=== PATIENT | female | born 1955 | race Caucasian/White ===

== ENCOUNTER 2020-06-14 21:12 | Emergency (ER) | payer BC, MEDICAID, SELFPAY ==
--- NOTE | ~2020-06-14 | XR_ITS ---
EXAMINATION: XR chest 2V DATE: 06/14/2020 22:30 INDICATION: Sternal chest pain TECHNIQUE: PA and lateral views of the chest are obtained. COMPARISON: None available FINDINGS: The lungs are free of acute opacities. There is no pleural effusion or pneumothorax. The ca rdiomediastinal silhouette is normal. There is mild thoracic spondylosis. Surgical clips in the right upper quadrant are likely from prior cholecystectomy. IMPRESSION: 1. No acute cardiopulmonary abnormality. Reviewed, dictated and finalized at location A.
[2020-06-14 21:19] VITALS: BP 148/77; PULSE 89; RESP 17; TEMP 36.8; O2SAT 96
--- NOTE | 2020-06-14 21:24 | ECG_ITS ---
Measurements Intervals [place] Rate: 84 P: 41 NM: 164 QRS: 20 QRSD: 86 T: 30 QT: 349 QTc: 415 Interpretive Statements SINUS RHYTHM NORMAL ECG Electronically Signed On 06-15-2020 7:24:19 CDT by Gibran Blanco D.O.
[2020-06-14 22:01] LABS: Basophils Absolute Auto 0.1 K/mm3 (0.0-0.1); Basophils Percent Auto 0.5 % (0.2-1.2); Eosinophils Absolute Auto 0.1 K/mm3 (0-0.3); Eosinophils Percent Auto 1.1 % (0-4.4); Hematocrit 38.2 % (37.0-47.0); Hemoglobin 13.4 g/dL (12.0-15.0); Immature Granulocyte Absolute 0.02 K/mm3 (0.00-0.031); Immature Granulocyte Percent A 0.2 % (0-0.5); Lymphocytes Absolute Auto 3.33 K/mm3 (0.9-3.2); Lymphocytes Percent Auto 32.3 % (18.3-44.2); Mean Corpuscular HGB Conc 35.1 g/dl (32-36); Mean Corpuscular Hemoglobin 31.8 pg (26-34); Mean Corpuscular Volume 90.5 fl (80-100); Mean Platelet Volume 9.7 fl (7.4-10.4); Monocytes Absolute Auto 0.7 K/mm3 (0.1-0.6); Monocytes Percent Auto 6.5 % (2.6-8.5); Neutrophils Absolute Auto 6.1 K/mm3 (1.3-6.7); Neutrophils Percent Auto 59.4 % (45.5-73.1); Platelet Count Result 264 k/mm3 (150-375); Red Blood Count 4.22 M/mm3 (4.2-5.4); Red Cell Distribution Width 13.3 % (11.5-14.5); White Blood Count 10.3 K/mm3 (4.5-10.0)
[2020-06-14 22:16] LABS: INR 0.9; Prothrombin Time 12.3 Seconds (11.1-14.7)
[2020-06-14 22:17] LABS: Anion Gap 11 mmol/L (8-16); Blood Urea Nitrogen 10 mg/dL (7-17); Calcium 9.6 mg/dL (8.4-10.2); Carbon Dioxide 25 mmol/L (22-30); Chloride 97 mmol/L (98-107); Estimated Glomerular Filt Rate > 60; Glucose 162 mg/dL (65-105); Partial Thromboplastin Time 30.3 SECONDS (22.3-36.8); Potassium 3.7 mmol/L (3.4-5.0); Sodium 133 mmol/L (137-145)
[2020-06-14 22:26] LABS: Troponin I < 0.012 ng/mL (0.000-0.034)
--- NOTE | 2020-06-15 00:02 | ED.CHESTPAIN ---
HPI - Chest Pain General Chief Complaint: Chest Pain Stated Complaint: Chest pain Time Seen by Provider: 06/14/20 23:57 Source: RN notes reviewed History of Present Illness HPI narrative: Patient presents emergency department from home for midsternal chest pain. Patient states that approximately 5 PM today she began to have some pain in the epigastric region up to the middle of her chest described as burning. States that it felt like heartburn at that time. Patient states she is still having some burning pain. She also notes that at that time she developed mild headache as well as some pain in her neck and flashes of light in her eyes. She states that these episodes of pain in her neck and headache and flashing lights in her eye have been ongoing for the past 1 year and has been evaluated by her PCP and she recently moved to this area month ago and is now looking for a new PCP for evaluation at this time she states all of those symptoms have resolved and the only symptom is the chest pain which is what brought her to the emergency department as this was new. She denies any fevers or chills shortness of breath nausea vomiting diarrhea or any other symptoms Related Data Allergies Allergy/AdvReac Type Severity Reaction Status Date / Time diclofenac [From Voltaren] AdvReac Other Verified 06/15/20 00:15 Review of Systems Review of Systems: Narrative: Gen.: Denies fevers or chills Eyes: Reports brief flashing lights in eyes which is chronic ENT: Denies congestion Respiratory: Denies shortness of breath or cough CV: See HPI GI: Denies abdominal pain nausea, emesis or diarrhea denies burning, urgency, frequency or hematuria Musculoskeletal: Denies back pain or muscle pain Neuro: Denies numbness, tingling, weakness or focal weakness Skin: Denies rash Except as documented, all other systems reviewed and negative PMFSH Past Medical History Medical History (Updated 06/15/20 @ 04:04 by Filipe Smith DO) Patient denies significant medical history Social History Social History (Updated 06/15/20 @ 00:03 by Filipe Smith DO) Smoking status: Never smoker Gender identity (if verbalized by the patient): Female Exam Narrative: Exam Narrative: APPEARANCE: No acute distress, nontoxic, resting in bed HEENT: Normocephalic, atraumatic, OMM RESPIRATORY: No respiratory distress, clear to auscultation bilaterally with no rhonchi wheezing or rales CARDIOVASCULAR: RRR s murmur ABDOMINAL: Soft, nondistended, tender palpation epigastric region, no tenderness in right upper quadrant and left upper quadrant, right lower quadrant left lower quadrant, no rebound or guarding MUSCULOSKELETAl: Moves all extremities. No clubbing, cyanosis or edema. NEURO: Awake and alert. Following commands, speech normal, no focal deficits SKIN:: Warm, dry. Normal Color PSYCHIATRIC: Normal affect/mood Course Course Emergency Course: Patient states chest pain is resolved with GI cocktail Discussed with patient results of workup and diagnosis. Discussed need for follow-up with primary care, proper use of medication, and reasons to return to the emergency department. Patient understands and agrees to current treatment plan She was discharged during downtime sent home with prescription for Protonix Vital Signs Vital signs: Vital Signs Temperature 98.3 F 06/14/20 21:19 Pulse Rate 89 06/14/20 21:19 Respiratory Rate 17 06/14/20 21:19 Blood Pressure 148/77 H 06/14/20 21:19 Pulse Oximetry 96 06/14/20 21:19 Temperature 98.3 F 06/14/20 21:19 Pulse Rate 89 06/14/20 21:19 Respiratory Rate 17 06/14/20 21:19 Blood Pressure 148/77 H 06/14/20 21:19 Pulse Oximetry 96 06/14/20 21:19 MDM - Chest Pain MDM Narrative Medical decision making narrative: Patient's EKGs and labs are without significant high risk changes. Cardiac risk factors reviewed. Patient is felt likely low risk for ACS and reasonable for further risk stratification te
[2020-06-15 00:15] LABS: Alanine Aminotransferase 21 U/L (4-35); Albumin Level 4.1 g/dL (3.5-5.1); Alkaline Phosphatase 91 U/L (38-126); Aspartate Amino Transferase 31 U/L (14-36); Bilirubin,Total 0.5 mg/dL (0.2-1.3); Lipase 48 U/L (23-300)
[2020-06-15 05:16] LABS: Troponin I < 0.012 ng/mL (0.000-0.034)
== END 2020-06-15 02:04 | disposition home or self-care (01) ==
PROVIDERS: Emergency Provider Emergency Medicine
DX: R07.9 Chest pain, unspecified (principal); K21.9 Gastro-esophageal reflux disease without esophagitis
CPT/HCPCS: 36415; 71046; 80048; 80076; 83690; 84484; 85025; 85610; 85730; 93005; 99284; A9270

== ENCOUNTER 2021-03-20 14:37 | Emergency (ER) | payer BC, MEDICAID, SELFPAY ==
[2021-03-20 14:45] VITALS: BP 160/71; PULSE 102; RESP 18; TEMP 37.2; O2SAT 97
--- NOTE | 2021-03-20 14:50 | ECG_ITS ---
Measurements Intervals [place] Rate: 94 P: 37 NM: 163 QRS: 36 QRSD: 86 T: 44 QT: 339 QTc: 425 Interpretive Statements SINUS RHYTHM DELAYED PRECORDIAL R/S TRANSITION MINIMAL Q WAVES- INFERIOR LEADS BORDERLINE ECG Electronically Signed On 03-20-2021 16:29:24 CDT by Gibran Blanco D.O.
[2021-03-20 15:09] LABS: Basophils Absolute Auto 0.1 K/mm3 (0.0-0.1); Basophils Percent Auto 0.7 % (0.2-1.2); Eosinophils Absolute Auto 0.1 K/mm3 (0-0.3); Eosinophils Percent Auto 1.6 % (0-4.4); Hematocrit 42.3 % (37.0-47.0); Hemoglobin 14.3 g/dL (12.0-15.0); Immature Granulocyte Absolute 0.02 K/mm3 (0.00-0.031); Immature Granulocyte Percent A 0.3 % (0-0.5); Lymphocytes Absolute Auto 2.58 K/mm3 (0.9-3.2); Lymphocytes Percent Auto 33.8 % (18.3-44.2); Mean Corpuscular HGB Conc 33.8 g/dl (32-36); Mean Corpuscular Hemoglobin 31.4 pg (26-34); Mean Platelet Volume 9.6 fl (7.4-10.4); Monocytes Absolute Auto 0.5 K/mm3 (0.1-0.6); Monocytes Percent Auto 6.3 % (2.6-8.5); Neutrophils Absolute Auto 4.4 K/mm3 (1.3-6.7); Neutrophils Percent Auto 57.3 % (45.5-73.1); Platelet Count Result 295 k/mm3 (150-375); Red Blood Count 4.55 M/mm3 (4.2-5.4); Red Cell Distribution Width 13.5 % (11.5-14.5); White Blood Count 7.6 K/mm3 (4.5-10.0)
[2021-03-20 15:17] LABS: Anion Gap 9 mmol/L (8-16); Blood Urea Nitrogen 15 mg/dL (7-17); Calcium 9.9 mg/dL (8.4-10.2); Carbon Dioxide 24 mmol/L (22-30); Chloride 105 mmol/L (98-107); Estimated CRCL calculation 49 ml/min; Estimated Glomerular Filt Rate 56; Glucose 142 mg/dL (65-105); Sodium 138 mmol/L (137-145)
[2021-03-20 17:14] VITALS: BP 155/86; PULSE 87; RESP 16; O2SAT 97
[2021-03-20] MEDS: SODIUM CHLORIDE 0.9% IV 1,000 ML 999 ML IV CONT (17:37)
--- NOTE | 2021-03-20 18:07 | ED.GENADULT ---
HPI - General Adult General Chief complaint: Weakness Stated complaint: headache/weakness Time Seen by Provider: 03/20/21 17:21 Source: patient and EMS Mode of arrival: EMS Limitations: no limitations History of Present Illness HPI narrative: Patient is a 65-year-old female who presents to emergency department for evaluation of headache earlier today for which she took Imitrex after which she felt weak and shaky and nauseous patient notes history of chronic migraines with frequent headaches and that this is consistent with her chronic headaches she has also been taking Zofran for nausea denies emesis patient on arrival is in no distress and notes that after taking her Imitrex she is now beginning to feel better Related Data Allergies Allergy/AdvReac Type Severity Reaction Status Date / Time diclofenac [From Voltaren] AdvReac Other Verified 06/15/20 00:15 Review of Systems Review of Systems: All systems reviewed & are unremarkable except as noted in HPI and below PMFSH Past Medical History Medical History Migraine headache Patient denies significant medical history Surgical History Surgical History Hx of cholecystectomy Social History Social History Smoking status: Never smoker Gender identity (if verbalized by the patient): Female Exam Narrative: Exam Narrative: GENERAL: Well-appearing, well-nourished, and in no acute distress. HEAD: Normocephalic, atraumatic. EYES: PERRLA and EOMI. ENT: Nares clear, no rhinorrhea or epistaxis. Mucous membranes moist. CHEST: Clear to auscultation. No respiratory distress. No wheezes rales or rhonchi HEART: Regular rate and rhythm. No murmur heard. EXTREMITIES: Normal range of motion. No edema. SKIN: Warm, dry, no rash. NEURO: No focal deficits. Alert and oriented x3. Cranial nerves II through XII grossly intact PSYCH: Normal mood and affect. Course Course Emergency Course: Patient is a 65-year-old that presented with migraine-like symptoms and weakness was evaluated no concerning findings in the evaluation will be discharged home with outpatient follow-up felt appropriate afebrile nontoxic-appearing no distress was hydrated in the emergency department Vital Signs Vital signs: Vital Signs Temperature 99 F 03/20/21 14:45 Pulse Rate 102 H 03/20/21 14:45 Respiratory Rate 18 03/20/21 14:45 Blood Pressure 160/71 H 03/20/21 14:45 Pulse Oximetry 97 03/20/21 14:45 Temperature 99 F 03/20/21 14:45 Pulse Rate 87 03/20/21 17:14 Respiratory Rate 16 03/20/21 17:14 Blood Pressure 155/86 H 03/20/21 17:14 Pulse Oximetry 97 03/20/21 17:14 Medical Decision Making MDM Narrative Medical decision making narrative: Patients headache was not sudden or maximal in onset. There are o focal neurological deficits on exam. Subarachnoid hemorrhage is felt to be unlikey at this time. There is no history of fever, and neck is supple without meningismus, making meningitis unlikely. No traumatic history or signs of trauma on exam. No risk factors for CVA, risk factors reviewed. NO ocular signs on exam and in history to suggest acute glaucoma. Patients headache is felt to be a reasonable candidate for outpatient evaluation Vital Signs Vital Signs: Vital Signs Temperature 99 F 03/20/21 14:45 Pulse Rate 102 H 03/20/21 14:45 Respiratory Rate 18 03/20/21 14:45 Blood Pressure 160/71 H 03/20/21 14:45 Pulse Oximetry 97 03/20/21 14:45 Temperature 99 F 03/20/21 14:45 Pulse Rate 87 03/20/21 17:14 Respiratory Rate 16 03/20/21 17:14 Blood Pressure 155/86 H 03/20/21 17:14 Pulse Oximetry 97 03/20/21 17:14 Lab Data Result diagrams: 03/20/21 15:02 03/20/21 15:02 Labs: Lab Results 03/20/21 03/20/21 03/20/21 Range/Units 15:02 15:02 18:06 WB
[2021-03-20 18:22] LABS: Add Urine Microscopic? YES; Appearance Urine Clear (Clear); Bilirubin Urine Negative (Negative); Blood Urine Negative (Negative); Color Urine Straw (Yellow); Glucose Urine UA Negative (Negative); Ketones Urine Negative (Negative); Leukocyte Esterase Ur 1+ LEU/UL (Negative); Mucus Urine Rare /lpf; Nitrate Urine Negative (Negative); Protein Urine Negative (Negative); RBC Urine 0-2 /hpf (0-2); Squamous Epithelial Cell Urine Rare /hpf (Few); Urobilinogen Urine Negative mg/dL (<2.0)
[2021-03-20 18:44] VITALS: BP 119/74; PULSE 72; RESP 16; O2SAT 100
== END 2021-03-20 18:46 | disposition home or self-care (01) ==
PROVIDERS: Emergency Medicine Emergency Medical Services; Emergency Provider Emergency Medicine; PCP Hospitalist
DX: R51.9 Headache, unspecified (principal)
CPT/HCPCS: 36415; 80048; 81001; 85025; 93005; 96365; 99284; J0131; J7030

== ENCOUNTER → 2021-03-28 11:10 | Outpatient (CLI) | payer BC, MEDICAID, SELFPAY ==
--- NOTE | ~2021-03-28 | XR_ITS ---
XR cervical spine 4-5V DATE: 03/28/2021 11:39 INDICATION: Neck pain TECHNIQUE: AP, lateral, open-mouth, odontoid views COMPARISON: None FINDINGS: C1 and C2 are normally aligned and the odontoid process is intact. No fracture or dislocati on or locked facet or prevertebral soft tissue swelling. There is minimal anterolisthesis at C4-5. There is moderate loss of interspace height at C5-6 and moderately severe loss of interspace height a t C6-7, with mild anterior spurring at the latter 2 interspaces. Uncovertebral joint spurring is noted at C5-6 and C6-7. Degenerative changes of the apophyseal joints . Diffuse osteopenia. IMPRESSION: Cervical spondylosis Reviewed, dictated and finalized at location A. IMPRESSION: Cervical spondylosis
== END ==
DX: M47.892 Other spondylosis, cervical region (principal)
CPT/HCPCS: 72050

== ENCOUNTER 2021-04-05 11:27 | Emergency (ER) | payer BC, MEDICAID, SELFPAY ==
--- NOTE | 2021-04-05 11:41 | PC.NURSE ---
Pt was looking for a COVID testing site, did not want to be evaluated by provider. Pt informed that we are capable of doing COVID testing but we are note a testing site. Pt expressed thanks for the information and requested to leave without being seen by the provided and to go to a testing site.
== END 2021-04-05 11:41 | disposition left against medical advice (07) ==
PROVIDERS: Emergency Provider Nurse Practitioner
DX: Z53.21 Procedure and treatment not carried out due to patient leaving prior to being seen by health care provider (principal)
CPT/HCPCS: 99199

== ENCOUNTER → 2021-04-06 09:27 | Outpatient (CLI) | payer BC, MEDICAID, SELFPAY ==
[2021-04-06 18:53] LABS: SARS-CoV-2 RNA PCR Negative
== END ==
DX: R68.89 Other general symptoms and signs (principal); Z20.822 Contact with and (suspected) exposure to COVID-19
CPT/HCPCS: C9803; U0003; U0005

== ENCOUNTER → 2021-08-16 08:34 | Outpatient (CLI) | payer MEDICARE, BC, SELFPAY ==
[2021-08-16 19:33] LABS: SARS-CoV-2 RNA PCR Positive
== END ==
DX: U07.1 COVID-19 (principal)
CPT/HCPCS: C9803; U0003; U0005

== ENCOUNTER 2021-08-20 05:09 | Emergency (ER) | payer BC, MEDICARE, SELFPAY ==
[2021-08-20] VITALS (21 sets, daily range): BP systolic 103–144; BP diastolic 55–79; PULSE 85–117; RESP 11–31; TEMP 37.7; O2SAT 93–97
--- NOTE | ~2021-08-20 | XR_ITS ---
EXAMINATION: XR chest 1V portable DATE: 08/20/2021 06:54 INDICATION: COVID positive presenting with 4-5 days of cough, fever and dizziness TECHNIQUE: frontal view of the chest was obtained. COMPARISON: Chest radiograph dated 06/14/2020 FINDINGS: Lung remain clear with no focal airspace opacities, pulmonary edema, pleural effusion or pneumothorax . The cardiomediastinal silhouette is normal. IMPRESSION: 1. No acute cardiopulmonary disease. Reviewed, dictated and finalized at location A. RACTOR
[2021-08-20] MEDS: SODIUM CHLORIDE 0.9% IV 1,000 ML 999 ML IV CONT ×2 (05:54→06:44)
[2021-08-20] MEDS: ONDANSETRON INJ 4 MG/2 ML VIAL IV PUSH (05:54)
[2021-08-20] MEDS: BENZONATATE 100 MG CAPSULE 200 MG PO (05:56)
[2021-08-20 06:11] LABS: Basophils Percent Auto 0.2 % (0.2-1.2); Hematocrit 37.4 % (37.0-47.0); Immature Granulocyte Absolute 0.01 K/mm3 (0.00-0.031); Immature Granulocyte Percent A 0.2 % (0-0.5); Lymphocytes Percent Auto 22.5 % (18.3-44.2); Mean Corpuscular HGB Conc 34.8 g/dl (32-36); Mean Corpuscular Hemoglobin 31.6 pg (26-34); Mean Platelet Volume 9.6 fl (7.4-10.4); Monocytes Absolute Auto 0.5 K/mm3 (0.1-0.6); Monocytes Percent Auto 8.8 % (2.6-8.5); Neutrophils Absolute Auto 3.9 K/mm3 (1.3-6.7); Neutrophils Percent Auto 68.3 % (45.5-73.1); Platelet Count Result 220 k/mm3 (150-375); Red Blood Count 4.11 M/mm3 (4.2-5.4); Red Cell Distribution Width 13.6 % (11.5-14.5); White Blood Count 5.8 K/mm3 (4.5-10.0)
[2021-08-20 06:23] LABS: Alanine Aminotransferase 25 U/L (4-35); Albumin Level 4.3 g/dL (3.5-5.1); Alkaline Phosphatase 103 U/L (38-126); Anion Gap 12 mmol/L (8-16); Aspartate Amino Transferase 36 U/L (14-36); Bilirubin,Total 0.5 mg/dL (0.2-1.3); Blood Urea Nitrogen 15 mg/dL (7-17); Calcium 8.8 mg/dL (8.4-10.2); Carbon Dioxide 23 mmol/L (22-30); Chloride 94 mmol/L (98-107); Estimated CRCL calculation 43 ml/min; Estimated Glomerular Filt Rate 56; Glucose 118 mg/dL (65-110); Sodium 129 mmol/L (137-145)
--- NOTE | 2021-08-20 06:26 | ED.GENADULT ---
HPI - General Adult General Chief complaint: Dizziness Stated complaint: Dizziness x1wk, fever, COVID + Time Seen by Provider: 08/20/21 05:35 History of Present Illness HPI narrative: Patient is 65-year-old female that presents the emergency department with chief complaint of dizziness. The patient reports she was diagnosed with COVID-19 and has had symptoms for about a week. The patient reports that she feels lightheaded worse with standing and ambulation and feels as though she is off balance. The patient denies chest pain denies shortness of breath reports she has very mild cough the patient denies vomiting or diarrhea. Related Data Home Medications Medication Instructions Recorded Confirmed albuterol sulfate INHALATION 08/20/21 azithromycin 08/20/21 ezetimibe mg 08/20/21 fenofibrate mg 08/20/21 levothyroxine [Euthyrox] 08/20/21 levothyroxine [Euthyrox] 08/20/21 pantoprazole PO 08/20/21 prednisone 08/20/21 sumatriptan succinate mg PO 08/20/21 Allergies Allergy/AdvReac Type Severity Reaction Status Date / Time diclofenac [From Voltaren] AdvReac Other Verified 08/20/21 05:29 Review of Systems Review of Systems: A 10 system review of systems was completed on the patient and is negative except for what is stated in the HPI. Nursing and ancillary documentation was reviewed. [facility] Past Medical History Medical History Migraine headache Patient denies significant medical history Surgical History Surgical History Hx of cholecystectomy Social History Social History Smoking status: Never smoker Gender identity (if verbalized by the patient): Female Exam Narrative: GENERAL: Well-appearing, well-nourished, and in no acute distress. HEAD: Normocephalic, atraumatic. EYES: PERRLA and EOMI. ENT: Nares clear, no rhinorrhea or epistaxis. Mucous membranes moist. NECK: Supple. CHEST: Clear to auscultation. No respiratory distress. HEART: Regular rate and rhythm. No murmur heard. Normal peripheral pulses. ABDOMEN: Soft, nontender, nondistended, normal active bowel sounds. EXTREMITIES: Normal range of motion. No edema. SKIN: Warm, dry, no rash. NEURO: No focal deficits. Alert and oriented x3. PSYCH: Normal mood and affect. Course Vital Signs Vital signs: Vital Signs Pulse Rate 110 H 08/20/21 05:16 Respiratory Rate 18 08/20/21 05:16 Blood Pressure 144/79 H 08/20/21 05:16 Pulse Oximetry 93 08/20/21 05:16 Temperature 37.7 C H 08/20/21 05:27 Pulse Rate 90 08/20/21 06:31 Respiratory Rate 22 H 08/20/21 06:31 Blood Pressure 115/66 08/20/21 06:30 Pulse Oximetry 97 08/20/21 05:27 Medical Decision Making Vital Signs Vital Signs: Vital Signs Pulse Rate 110 H 08/20/21 05:16 Respiratory Rate 18 08/20/21 05:16 Blood Pressure 144/79 H 08/20/21 05:16 Pulse Oximetry 93 08/20/21 05:16 Temperature 37.7 C H 08/20/21 05:27 Pulse Rate 90 08/20/21 06:31 Respiratory Rate 22 H 08/20/21 06:31 Blood Pressure 115/66 08/20/21 06:30 Pulse Oximetry 97 08/20/21 05:27 Lab Data Result diagrams: 08/20/21 05:57 08/20/21 05:57 Labs: Lab Results 08/20/21 08/20/21 Range/Units 05:57 05:57 WBC 5.8 (4.5-10.0) K/mm3 RBC 4.11 L (4.2-5.4) M/mm3 Hgb 13.0 (12.0-15.0) g/dL Hct 37.4 (37.0-47.0) % MCV 91.0 (80-100) fl MCH 31.6 (26-34) pg MCHC 34.8 (32-36) g/dl RDW 13.6 (11.5-14.5) % Plt Count 220 (150-375) k/mm3 MPV 9.6 (7.4-10.4) fl Immature Gran % (Auto) 0.2 (0-0.5) % Neut % (Auto) 68.3 (45.5-73.1) % Lymph % (Auto) 22.5 (18.3-44.2) % Richardson % (Auto) 8.8 H (2.6-8.5) % Eos % (Auto) 0.0 (0-4.4) % Baso % (Auto) 0.2 (0.2-1.2) % Lymph # (Auto) 1.30 (0.9-3.2) K/mm3 Richardson # (Auto)
== END 2021-08-20 08:47 | disposition home or self-care (01) ==
PROVIDERS: Emergency Provider Emergency Medicine; PCP Hospitalist
DX: U07.1 COVID-19 (principal); E86.0 Dehydration
CPT/HCPCS: 36415; 71045; 80053; 85025; 96361; 96365; 96375; 99284; A9270; J0131; J2405; J7030

== ENCOUNTER 2021-08-23 07:38 | Outpatient (RCR) | payer BC, MEDICARE, SELFPAY ==
[2021-08-23 11:18] VITALS: BP 119/66; PULSE 94; RESP 20; TEMP 36.1; O2SAT 91
[2021-08-23] MEDS: diphenhydrAMINE HCl CAP 25 MG CAPSULE PO (11:23)
[2021-08-23] MEDS: FAMOTIDINE 20 MG TABLET PO (11:23)
[2021-08-23] MEDS: ACETAMINOPHEN 325 MG TABLET 650 MG PO (11:23)
--- NOTE | 2021-08-23 11:46 | PC.NURSE ---
Patient unclear on doses of home meds, so home meds not updated.
[2021-08-23 12:50] VITALS: BP 112/66
--- NOTE | 2021-08-24 09:04 | PC.NURSE ---
Called Ms Mcintosh and she stated once she was home and after napping, she woke up dizzy and called EMS, and she is admitted to the hospital at this time.
== END 2021-08-23 17:00 ==
LOC: AMCINF 07:38
PROVIDERS: PCP Hospitalist; Visit Provider Internal Medicine Hematology & Oncology
DX: U07.1 COVID-19 (principal)
CPT/HCPCS: A9270; M0243; Q0244

== ENCOUNTER 2021-08-23 15:28 | Inpatient (IN) | payer BC, MEDICARE, SELFPAY ==
[2021-08-23] VITALS (8 sets, daily range): BP systolic 115–147; BP diastolic 60–89; PULSE 86–111; RESP 16–18; TEMP 38–39.4; O2SAT 89–100; BMI 28.5; BMI 28.3
--- NOTE | ~2021-08-23 | XR_ITS ---
EXAMINATION: XR chest 1V portable EXAM DATE: 08/23/2021 16:21 INDICATION: hypoxia COVID +08/18, dizziness, back pain. TECHNIQUE: Portable AP frontal chest x-ray was obtained. Comparison is made to prior examination from 08/20/2021. FINDINGS: Suspect development of bilateral ill-defined acute airspace disease, mild COVID pneumonia. No pneumothorax or pleural effusion. Cardiomediastinal silhouette is normal. 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 IMPRESSION: Suspect development of mild bilateral COVID pneumonia. Reviewed, dictated and finalized at location B. E PLANER OPERATOR
--- NOTE | ~2021-08-23 | XR_ITS ---
EXAMINATION: XR chest 1V portable DATE: 08/27/2021 06:06 INDICATION: COVID-19 pneumonia. TECHNIQUE: A single frontal view of the chest was obtained. COMPARISON: Chest single view 08/23/2021, chest CT 08/23/2021 FINDINGS: There are patchy airspace opacities in all lung zones bilaterally with relative sparing of left upper lung zone. No pleural effusion or pneumothorax. The heart size is normal. IMPRESSION: 1. Worsened diffuse lung disease, consistent with COVID-19 pneumonia. Reviewed, dictated and finalized at location A. SE RENDERER
--- NOTE | ~2021-08-23 | CT_ITS ---
EXAMINATION: CTA chest PE protocol DATE: 09/03/2021 15:42 INDICATION: Chest pain TECHNIQUE: Computed tomography angiography (CTA) of the chest was performed with 100 mL Omnipaque-350 intravenous contrast timed to evaluate the pulmonary arteries. Coronal maximum intensity projection 3D-reconstructions were created by the technologist. The dose-length product (DLP) was 471.74 mGy-cm. Automated exposure control and iterative reconstruction technique were employed. COMPARISON: 08/23/2021 FINDINGS: The pulmonary arteries are well-opacified. No pulmonary embolism is identified. There are w idespread opacities throughout all lung zones with slight worsening since the comparison examination. There is no pleural effusion or pneumothorax. There is mild bilateral hilar lymphadenopathy. The hea rt size is normal. The gallbladder is surgically absent. IMPRESSION: 1. No pulmonary embolus. 2. Diffuse lung disease with slight interval worsening, consistent with pneumonia. Reviewed, dictated and finalized at location F. GED SERVICES CONSULTANT IMPRESSION: 1. No pulmonary embolus. 2. Diffuse lung disease with slight interval worsening, consistent with pneumon ia.
--- NOTE | ~2021-08-23 | CT_ITS ---
EXAMINATION: CTA chest PE protocol DATE: 08/23/2021 18:45 FIELD SUPPORT SPECIALIST INDICATION: Shortness of breath and dizziness. Elevated d-dimer. TECHNIQUE: Computed tomographic angiography (CTA) of the chest was performed with 100 mL Omnipaque-35 0 intravenous contrast. The dose-length product was 391.24 mGy-cm. Maximum intensity projection 3D-re constructions of the aorta and other arteries were constructed by the technologist on a separate work station. COMPARISON: None. FINDINGS: Study is technically adequate without evidence for pulmonary embolism. Evaluation of subseg mental pulmonary arteries limited by motion. Cardiomegaly. No significant pleural or pericardial effu sulma. Extensive patchy groundglass opacities throughout both lungs, consistent with pneumonia. No end obronchial lesions. No pneumothorax. No evidence for aortic aneurysm or dissection. Small hiatal verónica ia. No thoracic lymphadenopathy. Status post cholecystectomy. Otherwise, the upper abdomen is unremar kable. No acute osseous abnormality. IMPRESSION: 1. Patchy bilateral airspace disease, consistent with pneumonia. Reviewed, dictated and finalized at location A. D SUPPORT SPECIALIST
--- NOTE | ~2021-08-23 | XR_ITS ---
EXAMINATION: XR chest 1V portable DATE: 09/03/2021 13:52 INDICATION: Chest pain. TECHNIQUE: A single frontal view of the chest was obtained. COMPARISON: Chest single view 08/30/2021, chest CT 08/23/2021 FINDINGS: There are patchy airspace opacities and interstitial opacities in all right lung zones and in left mid and lower lung zones. No pleural effusion or pneumothorax. The heart size is normal. Surg ical clips in the right upper quadrant are likely from cholecystectomy. IMPRESSION: 1. Stable diffuse lung disease, consistent with COVID-19 pneumonia. Reviewed, dictated and finalized at location A. RPERSONAL COMMUNICATIONS PROFESSOR
--- NOTE | ~2021-08-23 | US_ITS ---
EXAMINATION: US arterial duplex LE RT DATE: 09/06/2021 16:27 INDICATION: Arterial bruit at the right groin post recent catheterization TECHNIQUE: Multiple grayscale and Doppler ultrasound images of the right groin were obtained. COMPARISON: None FINDINGS: The right common femoral artery and the superficial femoral artery and profunda femoral artery all ap pear normal with normal triphasic waveforms with brisk systolic upstrokes. The right common femoral a nd superficial femoral veins are patent with normal venous waveforms. No arterialization to suggest A V fistula. No hematoma or pseudoaneurysm identified at the right groin. IMPRESSION: 1. Normal study. No evident hematoma, pseudoaneurysm or AV fistula at the right groin. Reviewed, dictated and finalized at location A. USION OPERATOR
--- NOTE | ~2021-08-23 | XR_ITS ---
EXAMINATION: XR chest 1V portable DATE: 08/30/2021 06:20 INDICATION: COVID-19 pneumonia. TECHNIQUE: A single frontal view of the chest was obtained. COMPARISON: Chest single view 08/27/2021 FINDINGS: There are patchy airspace opacities in all lung zones bilaterally with relative sparing of left upper lung zone. No pleural effusion or pneumothorax. The heart size is normal. IMPRESSION: 1. Stable diffuse lung disease, consistent with COVID-19 pneumonia. Reviewed, dictated and finalized at location A. INSTALLER
--- NOTE | 2021-08-23 16:08 | ECG_ITS ---
RATE 108 TX 147 QRSd 82 QT 305 QTc 410 --[place]-- P 25 QRS 16 T 14 SINUS TACHYCARDIA DELAYED PRECORDIAL R/S TRANSITION ABNORMAL ECG Electronically Signed On 08-24-2021 12:07:50 ASSOCIATE SPA DIRECTOR by Gibran MARTINEZ
--- NOTE | 2021-08-23 16:17 | ED.BACK ---
HPI - Back Pain/Injury General Chief Complaint: Back Pain/Injury Stated Complaint: COVID+ BACK PAIN AFTER INFUSION Time Seen by Provider: 08/23/21 15:54 Source: patient and RN notes reviewed Mode of arrival: EMS Limitations: no limitations History of Present Illness HPI Narrative: This is a 65 year old female who presents for evaluation of back pain and low oxygen saturation. She developed symptoms of COVID on 08/14/21 and she was diagnosed with August 18. She has been having intermittent episodes of shaking and chills since her diagnosis. Today she developed lower back pain and uncontrollable shaking. She was found to have oxygen saturation of 84% by EMS and in ER she has saturation 89%. She denies shortness of breath, chest pain, or chronic lung disease. She has decreased appetite but denies abdominal pain, nausea, vomiting or diarrhea. Related Data Home Medications Medication Instructions Recorded Confirmed albuterol sulfate 90 mcg INHALATION BID PRN 08/20/21 08/23/21 azithromycin 250 mg PO DAILY 08/20/21 08/23/21 ezetimibe 10 mg PO 08/20/21 fenofibrate 160 mg PO 08/20/21 levothyroxine [Euthyrox] 88 mcg PO DAILY 08/20/21 08/23/21 pantoprazole 4 mg PO DAILY 08/20/21 08/23/21 prednisone 50 mg PO DAILY 08/20/21 sumatriptan succinate 100 mg PO 08/20/21 Allergies Allergy/AdvReac Type Severity Reaction Status Date / Time diclofenac [From Voltaren] AdvReac Other Verified 08/23/21 21:20 Review of Systems Review of Systems: All systems reviewed & are unremarkable except as noted in HPI and below Constitutional: Constitutional: Reports chills and Reports fever(s) ENT: Denies sore throat Cardiovascular: Cardiovascular: Denies chest pain and Denies radiating jaw, neck or arm pain Respiratory: Respiratory: Denies cough and Denies dyspnea Gastrointestinal: Gastrointestinal: Denies abdominal pain, Denies diarrhea, Denies nausea and Denies vomiting PMFSH Past Medical History Medical History Hyperlipidemia Migraine headache Surgical History Surgical History Hx of cholecystectomy Social History Social History Smoking status: Never smoker Second hand tobacco smoke exposure: Yes (Father smoked) Alcohol intake: never Substance use: never Gender identity (if verbalized by the patient): Female Spiritual care concerns: Yes Exam Const: General: no acute distress, alert and ill appearing Orientation/consciousness: patient oriented x3 HENMT: Head: normocephalic and atraumatic Ears: TM's normal bilaterally Eyes: EOM: EOMs intact bilaterally Chest: Chest palpation & inspection: normal inspection of the chest Resp: Effort & Inspection: normal respiratory effort and no retractions Auscultation: clear to auscultation bilaterally Cardio: Rate: tachycardic Rhythm: regular rhythm and regular rhythm Heart sounds: no murmurs GI: GI Palp: Yes Soft to palpation, No Tenderness to palpation present (GI) and No Guarding due to palpation present (GI) Auscultation: normal bowel sounds : General: Yes no CVA tenderness Skin: General skin exam: normal color Rashes: no rashes Neuro: General: patient oriented x3, moves all extremities and CN's II-XI intact bilaterally Psych: Mental Status: mental status grossly normal Affect: normal affect Course Reevaluation(s) Reevaluation #1: I Discussed with patient that has been found to be dehydrated and have covid pneumonia. She will requiring admission due to oxygen requirement. Steroids and Remdesivir ordered. Patient denies any questions or concerns. Date: 08/23/21 Time: 19:29 Consultations Consultation #1: I discussed with Brigitte Dougherty who accepts to hospitalist service to medical floor. Date: 08/23/21 Time: 19:30 Vital Signs Vital signs: Vital Signs T
[2021-08-23 16:28] LABS: Alveolar/Arterial O2 Gradient 71.1 mmHg; Base Excess ABG 2.6 mEq/l (+/-2.0); Carboxyhemoglobin 0.3 % THb (0-2.0); Fractional Inspired Oxygen 24 %; HCO3 ABG 24.7 mEq/l (22.0-26.0); Methemoglobin ABG 0.4 %THb (0-1.5); Oxygen Content ABG 17.4 %vol (16.0-22.0); Oxygen Saturation ABG 94.6 % (95.0-100.0); Oxyhemoglobin 92.3 % THb (90.0-100.0); PCO2 ABG 30.7 mmHg (35.0-45.0); PO2 ABG 63.5 mmHg (80.0-100.0); PO2 FiO2 Ratio Arterial Blood 2.65 %; Total Hemoglobin 13.4 g/dL (12.0-18.0)
[2021-08-23 16:30] LABS: Modified Allen's Test Pass; Site Drawn LEFT RADIAL; pH ABG 7.523 (7.350-7.450)
[2021-08-23 16:31] LABS: Device NASAL CANNULA
[2021-08-23 17:01] LABS: Basophils Percent Auto 0.2 % (0.2-1.2); Hematocrit 37.3 % (37.0-47.0); Immature Granulocyte Absolute 0.03 K/mm3 (0.00-0.031); Immature Granulocyte Percent A 0.3 % (0-0.5); Mean Corpuscular HGB Conc 34.9 g/dl (32-36); Mean Corpuscular Hemoglobin 31.8 pg (26-34); Mean Corpuscular Volume 91.2 fl (80-100); Mean Platelet Volume 9.6 fl (7.4-10.4); Monocytes Absolute Auto 0.4 K/mm3 (0.1-0.6); Neutrophils Absolute Auto 8.8 K/mm3 (1.3-6.7); Neutrophils Percent Auto 87.5 % (45.5-73.1); Platelet Count Result 204 k/mm3 (150-375); Red Blood Count 4.09 M/mm3 (4.2-5.4); Red Cell Distribution Width 13.6 % (11.5-14.5)
[2021-08-23 17:05] LABS: Add Urine Microscopic? NO; Appearance Urine Clear (Clear); Bilirubin Urine Negative (Negative); Blood Urine Negative (Negative); Color Urine Straw (Yellow); Glucose Urine UA Negative (Negative); Ketones Urine Negative (Negative); Leukocyte Esterase Ur Negative LEU/UL (Negative); Nitrate Urine Negative (Negative); Protein Urine Negative (Negative); Urobilinogen Urine Negative mg/dL (<2.0)
[2021-08-23 17:10] LABS: Lactic Acid Reflex 1.2 mmol/L (0.7-2.1)
[2021-08-23 17:11] LABS: Prothrombin Time 13.2 Seconds (11.1-14.7)
[2021-08-23 17:12] LABS: Partial Thromboplastin Time 27.7 SECONDS (22.3-36.8)
[2021-08-23 17:14] LABS: Alanine Aminotransferase 29 U/L (4-35); Albumin Level 4.1 g/dL (3.5-5.1); Alkaline Phosphatase 100 U/L (38-126); Anion Gap 6 mmol/L (8-16); Aspartate Amino Transferase 52 U/L (14-36); Bilirubin,Total 0.5 mg/dL (0.2-1.3); Blood Urea Nitrogen 13 mg/dL (7-17); Calcium 9.1 mg/dL (8.4-10.2); Carbon Dioxide 25 mmol/L (22-30); Chloride 96 mmol/L (98-107); Estimated CRCL calculation 48 ml/min; Estimated Glomerular Filt Rate > 60; Glucose 123 mg/dL (65-110); Potassium 3.8 mmol/L (3.4-5.0); Sodium 127 mmol/L (137-145)
[2021-08-23 17:27] LABS: D Dimer 0.96 ug/mL (<0.48)
[2021-08-23 17:40] LABS: Specific Grav Ur 1.003 (1.001-1.035)
[2021-08-23] MEDS: SODIUM CHLORIDE 0.9% IV 1,000 ML 999 ML IV CONT (17:55)
--- NOTE | 2021-08-23 19:17 | PC.NURSE ---
the ekg that is downloaded into this pt's chart is not for this pt despite her name being on ekg. her correct ekg was done at 16:20:34. please refer to paper copy of ekg until incorrect ekg can be removed from pt's chart
[2021-08-23] MEDS: SODIUM CHLORIDE 0.9% IV 1,000 ML 125 ML IV CONT (20:34)
[2021-08-23] MEDS: REMDESIVIR 200 MG/NS 250 ML 200 MG/250 ML BAG 250 MG IVPB (20:35)
--- NOTE | 2021-08-23 21:02 | ADMGEN ---
This patient, Yoko Mcintosh, was admitted to [facility] Surg Room 310-01. Patient/family oriented to hospital policies and general routines including ID bracelet, bed and alarms, visiting hours, pain management, procedures, bathroom and other care routines, personal items, smoking policy, room service/diet, and visiting hours. Information on how to activate the Rapid Response Team has been discussed. Patient/Family are encouraged to report perceived risks to care and to ask questions if they do not understand what they are told or what they should do.
--- NOTE | 2021-08-23 21:16 | ADMGEN ---
This patient, Yoko Mcintosh, was admitted to [facility] Surg Room [id number]. Patient/family oriented to hospital policies and general routines including ID bracelet, bed and alarms, visiting hours, pain management, procedures, bathroom and other care routines, personal items, smoking policy, room service/diet, and visiting hours. Information on how to activate the Rapid Response Team has been discussed. Patient/Family are encouraged to report perceived risks to care and to ask questions if they do not understand what they are told or what they should do.
--- NOTE | 2021-08-23 22:33 | PM.IMHP ---
H&P: HPI History of Present Illness Date/Time: 08/23/21 22:33 Chief Complaint: Hypoxia Narrative: This is a 65 year old female who presents to the ED today with persistent symptoms since diagnosis of COVID-19 on 08/16/2021. She started having symptoms on 08/14/2021. Has been having intermittent fever generalized weakness loss of appetite and body aches. She went for her monoclonal antibody infusion today following which she has not felt well. She developed fever and was extremely weak and hence came to the ED for evaluation. EMS was called and was noted to have oxygen saturation of 84% and has been placed on oxygen supplementation. She denies any shortness of breath or chest pain or any diagnosis of chronic lung disease in the past. She denies any abdominal pain nausea vomiting or diarrhea. With her new hypoxia she is admitted for further evaluation and management Review of Systems Review of Systems: - CONSTITUTIONAL: Denies weight loss, reports fever and chills. - HEENT: Denies changes in vision and hearing - RESPIRATORY: Denies SOB and cough. - CV: Denies palpitations and CP. - GI: Denies abdominal pain, reports nausea, denies vomiting and diarrhea. - : Denies dysuria and urinary frequency. - MSK: Reports myalgia and denies joint pain. - SKIN: Denies rash and pruritus. - NEUROLOGICAL: Denies headache and syncope. - PSYCHIATRIC: Denies recent changes in mood. Denies anxiety and depression. All systems reviewed & are unremarkable except as noted in HPI and below Constitutional: Constitutional: Reports fatigue and Reports weakness Neurologic: Reports weakness Endocrine: Endocrine: Reports fatigue PMFSH Past Medical History Medical History Hyperlipidemia Migraine headache Surgical History Surgical History Hx of cholecystectomy Social History Social History Smoking status: Never smoker Second hand tobacco smoke exposure: Yes (Father smoked) Alcohol intake: never Substance use: never Gender identity (if verbalized by the patient): Female Spiritual care concerns: Yes Meds Home Medications and Allergies Home Medications Medication Instructions Recorded Confirmed Type albuterol sulfate 90 mcg INHALATION BID PRN 08/20/21 08/23/21 History levothyroxine [Euthyrox] 88 mcg PO DAILY 08/20/21 08/23/21 History pantoprazole 4 mg PO DAILY 08/20/21 08/23/21 History prednisone 50 mg PO DAILY 08/20/21 08/23/21 History sumatriptan succinate 100 mg PO PRN PRN 08/20/21 08/23/21 History lorazepam [Ativan] 0.5 mg PO HS 08/23/21 08/23/21 History ondansetron HCl [Zofran] 4 mg PO Q6H PRN 08/23/21 08/23/21 History Allergies Allergy/AdvReac Type Severity Reaction Status Date / Time diclofenac [From Voltaren] AdvReac Other Verified 08/23/21 21:20 Vital Signs Vital Signs - 24 hr 08/23/21 15:31 08/23/21 16:48 08/23/21 17:54 Temperature 102.9 F H Pulse Rate 111 H 101 H Respiratory Rate 18 18 Blood Pressure 147/77 H 147/89 H Pulse Oximetry 89 L 94 95 08/23/21 19:12 08/23/21 20:26 08/23/21 21:10 Temperature 100.4 F H Pulse Rate 94 98 86 Respiratory Rate 16 18 18 Blood Pressure 125/70 115/69 133/60 Pulse Oximetry 95 100 93 08/23/21 21:32 08/23/21 21:47 Temperature 100.4 F H Pulse Rate 86 Respiratory Rate Blood Pressure 133/60 Pulse Oximetry 100 Exam Narrative: GENERAL: The patient is well developed, not in acute distress HEENT: Nonicteric sclerae, PERRLA, EOMI. Oropharynx clear. Moist mucous membranes. Conjunctivae appear well perfused. CHEST: Chest wall is nontender. HEART: Regular rate and rhythm without murmur, rubs, or gallops LUNGS: Clear to auscultation bilaterally. no respiratory distress ABDOMEN: Soft, positive bowel sounds, non-tender, no organomegaly. SKIN: No ra
[2021-08-23] MEDS: FAMOTIDINE 20 MG/2 ML VIAL IV PUSH (23:48)
[2021-08-24] VITALS: BP 108/52; PULSE 76; RESP 18; TEMP 37.9; O2SAT 93
[2021-08-24 04:00] VITALS: BP 100/53; PULSE 79; RESP 18; TEMP 36.8; O2SAT 94
[2021-08-24] MEDS: LEVOTHYROXINE SODIUM 88 MCG TABLET PO (06:14)
[2021-08-24 06:54] LABS: Basophils Percent Auto 0.1 % (0.2-1.2); Hematocrit 36.2 % (37.0-47.0); Hemoglobin 12.3 g/dL (12.0-15.0); Immature Granulocyte Absolute 0.04 K/mm3 (0.00-0.031); Immature Granulocyte Percent A 0.5 % (0-0.5); Lymphocytes Absolute Auto 0.78 K/mm3 (0.9-3.2); Lymphocytes Percent Auto 10.3 % (18.3-44.2); Mean Corpuscular Hemoglobin 31.5 pg (26-34); Mean Corpuscular Volume 92.6 fl (80-100); Monocytes Absolute Auto 0.3 K/mm3 (0.1-0.6); Monocytes Percent Auto 3.7 % (2.6-8.5); Neutrophils Absolute Auto 6.5 K/mm3 (1.3-6.7); Neutrophils Percent Auto 85.4 % (45.5-73.1); Platelet Count Result 235 k/mm3 (150-375); Red Blood Count 3.91 M/mm3 (4.2-5.4); Red Cell Distribution Width 14.1 % (11.5-14.5); White Blood Count 7.6 K/mm3 (4.5-10.0)
[2021-08-24 06:56] LABS: INR 1.1; Prothrombin Time 13.8 Seconds (11.1-14.7)
[2021-08-24 07:14] LABS: Alanine Aminotransferase 27 U/L (4-35); Albumin Level 3.7 g/dL (3.5-5.1); Alkaline Phosphatase 81 U/L (38-126); Anion Gap 6 mmol/L (8-16); Aspartate Amino Transferase 42 U/L (14-36); Bilirubin,Total 0.3 mg/dL (0.2-1.3); Blood Urea Nitrogen 13 mg/dL (7-17); CRP 11.3 mg/dL (<1.0); Calcium 8.4 mg/dL (8.4-10.2); Carbon Dioxide 26 mmol/L (22-30); Chloride 102 mmol/L (98-107); Estimated CRCL calculation 61 ml/min; Estimated Glomerular Filt Rate > 60; Glucose 127 mg/dL (65-110); Lactate Dehydrogenase 736 U/L (313-618); Potassium 4.5 mmol/L (3.4-5.0); Sodium 134 mmol/L (137-145)
[2021-08-24 08:00] VITALS: O2SAT 95
[2021-08-24] MEDS: ENOXAPARIN 40 MG/0.4 ML SYRINGE SUB-Q (08:14)
[2021-08-24] MEDS: PANTOPRAZOLE 40 MG TABLET PO (08:15)
[2021-08-24] MEDS: FAMOTIDINE 20 MG/2 ML VIAL IV PUSH ×2 (08:15→21:09)
--- NOTE | 2021-08-24 13:45 | PM.IMPN ---
Progress Note: A&P Assessment and Plan (1) Pneumonia due to 2019 novel coronavirus: Code(s): U07.1 - COVID-19; J12.82 - Pneumonia due to coronavirus disease 2019 Status: Acute Assessment and Plan: started on Decadron and remdesivir. Symptoms started 08/14/2021 formally diagnosed 08/16/2021 monoclonal antibody infusion 08/23/2021. inflammatory markers: Ferritin 594, LDH 736, CRP 11.3, Dimer 0.96 CTA shows no PE Supplemental oxygen, wean to maintain SpO2 greater than 90% DVT prophylaxis Lovenox (2) Dehydration: Code(s): E86.0 - Dehydration Status: Acute Assessment and Plan: dehydration due to poor p.o. intake gentle IV hydration with normal saline at 75 cc an hour discontinue IV fluids resolved at this time kidney function at baseline (3) COVID-19: Code(s): U07.1 - COVID-19 Status: Acute (4) Acute respiratory failure due to COVID-19: Code(s): U07.1 - COVID-19; J96.00 - Acute respiratory failure, unspecified whether with hypoxia or hypercapnia Status: Acute (5) Hyponatremia: Code(s): E87.1 - Hypo-osmolality and hyponatremia Status: Acute Assessment and Plan: sodium at admission was 127 current sodium 134 IV fluids and rehydration took place seems to be resolved at this time continue to monitor and trend (6) Elevated d-dimer: Code(s): R79.89 - Other specified abnormal findings of blood chemistry Status: Acute Assessment and Plan: D-dimer 0.96 CTA shows patchy bilateral airspace could disease, with no evidence of pulmonary embolism probably related to COVID-19 continue trend (7) Hypothyroidism: Code(s): E03.9 - Hypothyroidism, unspecified Status: Acute Assessment and Plan: continue levothyroxine 88 mcg p.o. daily check TSH Time Spent With Patient Time with patient: Greater than 35 minutes Subjective Date/time seen: 08/24/21 13:45 Interval history: Date/Time: 08/23/21 22:33 Narrative: This is a 65 year old female who presents to the ED today with persistent symptoms since diagnosis of COVID-19 on 08/16/2021. She started having symptoms on 08/14/2021. Has been having intermittent fever generalized weakness loss of appetite and body aches. She went for her monoclonal antibody infusion today following which she has not felt well. She developed fever and was extremely weak and hence came to the ED for evaluation. EMS was called and was noted to have oxygen saturation of 84% and has been placed on oxygen supplementation. She denies any shortness of breath or chest pain or any diagnosis of chronic lung disease in the past. She denies any abdominal pain nausea vomiting or diarrhea. With her new hypoxia she is admitted for further evaluation and management Date/Time 08/24/21 1345 Patient is laying flat in bed. She was wondering when they were going to wean her off the oxygen. Checking her saturation she was 94%. She was placed on room air at that time. She was able to hold her own with a saturation of 92% while laying flat. She did stated that she has been able to get up and down out of bed. She States that she is feeling better today and not as dizzy. She also states that she feels like she is not short of breath. And not as weak. She also talked to me about being dizzy and stated that that has gotten better and that she does not get dizzy when she gets up and down. She denies chest pain, cough, nausea, vomiting, diarrhea, constipation, weakness, fatigue. Review of Systems Review of Systems: All systems reviewed & are unremarkable except as noted in HPI and below Exam Const: General: cooperative, healthy appearing, no acute distress, well developed, alert and awake Nutritional Appearance: well nourished Orientation/consciousness: patient oriented x3 Limitations: no limitations ERICH: Beth
[2021-08-24 14:00] VITALS: BP 114/67; PULSE 81; RESP 19; TEMP 36.2; O2SAT 93; O2SAT 95
[2021-08-24 20:55] VITALS: BP 126/74; PULSE 76; RESP 18; TEMP 36.1; O2SAT 91
[2021-08-24] MEDS: REMDESIVIR 100 MG/NS 250 ML 100 MG/250 ML BAG 250 MG IVPB (21:07)
[2021-08-24] MEDS: LORazepam (*CRX) 0.5 MG TABLET PO (21:09)
--- NOTE | 2021-08-25 | ECHO_ITS ---
Patient Info Name: Yoko Mcintosh Age: 65 years : 1955 Gender: Female Ht: 64 in Wt: 165 lbs BSA: 1.86 m2 HR: 73 bpm BP: 123 / 59 mmHg Heart Rhythm: Sinus Rhythm Technical Quality: Fair Exam Date: 08/25/2021 1:59 PM Exam Location: [facility] Pulmonary Exam Room: 310 Patient Status: Inpatient Admit Date: 08/24/2021 Staff Ordering Physician: Amos Salinas Pricer Bagger: Tish Juarez RDCS Attending Provider: Rafael Geller MD Referring Physician: Brad LEE; Exam Type: CA echo doppler color flow Study Info Indications - fluid status sob covid Complete two-dimensional, color flow and Doppler transthoracic echocardiogram is performed. Summary 1. Complete two-dimensional, color flow and Doppler transthoracic echocardiogram is performed. 2. Normal left ventricular size and thickness with overall good left ventricular contractility and estimated ejection fraction 60-65%. Hypokinesis of the basal inferior septum. Normal diastolic function. 3. Left atrial chamber dimension is mildly enlarged. 4. Mild pulmonary hypertension, estimated pulmonary arterial systolic pressure is 49 mmHg. 5. No significant valve disease. 6. Normal sinus rhythm. Left Ventricle Left ventricular chamber dimension is normal. Left ventricular systolic function is normal, estimated at 60-65%. There is no increased left ventricular wall thickness. Left ventricular septal wall motion is normal. The left ventricular diastolic function is normal. Right Ventricle Right ventricular chamber dimension is normal. Right ventricular systolic function is normal. Left Atria Left atrial chamber dimension is mildly enlarged. Right Atria Right atrial chamber dimension is normal. Aortic Valve The aortic valve is trileaflet. There is no aortic valve sclerosis. There is no aortic valve stenosis. There is no aortic valve regurgitation. Pulmonic Valve The pulmonic valve is normal. There is no pulmonic valve stenosis. There is no pulmonic regurgitation. Mitral Valve The mitral valve has normal leaflets. There is no mitral valve stenosis. There is no mitral valve regurgitation. Tricuspid Valve The tricuspid valve leaflets are normal. There is no significant tricuspid valve stenosis. There is trace tricuspid valve regurgitation. Mild pulmonary hypertension, estimated pulmonary arterial systolic pressure is 49 mmHg. Pericardium/Pleural The pericardium appears normal. There is no pericardial effusion. Inferior Vena Cava Normal inferior vena cava with >50% collapse upon inspiration consistent with Empty right atrial pressure, 10 mmHg. Aorta The aortic root size at the sinus of Valsalva is normal. The prox ascending aorta size is normal. Left Ventricular Outflow Tract Name Value Normal LVOT 2D LVOT Diameter 2.0 cm LVOT Doppler LVOT Peak Gradient 5 mmHg LVOT Mean Gradient 3 mmHg LVOT VTI 21 cm LVOT VTI/AV VTI Ratio 0.9 LVOT Stroke Volume
[2021-08-25 00:52] VITALS: BP 121/65; PULSE 66; RESP 18; TEMP 35.9; O2SAT 92
[2021-08-25] MEDS: ONDANSETRON INJ 4 MG/2 ML VIAL IV PUSH ×2 (04:10→18:50)
[2021-08-25 05:08] VITALS: BP 123/59; PULSE 80; RESP 18; TEMP 36.2; O2SAT 94
[2021-08-25] MEDS: LEVOTHYROXINE SODIUM 88 MCG TABLET PO (05:35)
[2021-08-25 06:37] LABS: Basophils Percent Auto 0.1 % (0.2-1.2); Hematocrit 36.7 % (37.0-47.0); Hemoglobin 12.6 g/dL (12.0-15.0); Immature Granulocyte Absolute 0.03 K/mm3 (0.00-0.031); Immature Granulocyte Percent A 0.4 % (0-0.5); Lymphocytes Absolute Auto 1.24 K/mm3 (0.9-3.2); Lymphocytes Percent Auto 16.6 % (18.3-44.2); Mean Corpuscular HGB Conc 34.3 g/dl (32-36); Mean Corpuscular Hemoglobin 31.6 pg (26-34); Monocytes Absolute Auto 0.4 K/mm3 (0.1-0.6); Neutrophils Absolute Auto 5.8 K/mm3 (1.3-6.7); Neutrophils Percent Auto 77.9 % (45.5-73.1); Platelet Count Result 273 k/mm3 (150-375); Red Blood Count 3.99 M/mm3 (4.2-5.4); Red Cell Distribution Width 13.9 % (11.5-14.5); White Blood Count 7.5 K/mm3 (4.5-10.0)
[2021-08-25 06:47] LABS: Alanine Aminotransferase 28 U/L (4-35); Albumin Level 3.7 g/dL (3.5-5.1); Alkaline Phosphatase 84 U/L (38-126); Anion Gap 7 mmol/L (8-16); Aspartate Amino Transferase 44 U/L (14-36); Bilirubin,Total 0.4 mg/dL (0.2-1.3); Blood Urea Nitrogen 16 mg/dL (7-17); Calcium 8.8 mg/dL (8.4-10.2); Carbon Dioxide 23 mmol/L (22-30); Chloride 103 mmol/L (98-107); Estimated CRCL calculation 69 ml/min; Estimated Glomerular Filt Rate > 60; Glucose 110 mg/dL (65-110); Magnesium 2.3 mg/dL (1.6-2.3); Potassium 4.2 mmol/L (3.4-5.0); Sodium 133 mmol/L (137-145)
[2021-08-25 06:48] LABS: Prothrombin Time 13.5 Seconds (11.1-14.7)
[2021-08-25 07:00] LABS: NT Pro B Type Natriuretic Pept 1000 pg/mL (5-100)
[2021-08-25 07:12] LABS: Hemoglobin A1C 6.3 % (<5.7)
--- NOTE | 2021-08-25 07:45 | P.PNIM_ITS ---
Progress Note: A&P Assessment and Plan (1) Pneumonia due to 2019 novel coronavirus: Code(s): U07.1 - COVID-19; J12.82 - Pneumonia due to coronavirus disease 2019 Status: Acute Assessment and Plan: * Decadron and remdesivir day 2 * Symptoms started 08/14/2021 * formally diagnosed 08/16/2021 * monoclonal antibody infusion 08/23/2021. * inflammatory markers: Ferritin 594, LDH 736, CRP 11.3, Dimer 0.96 08/24/21, repeat in the am * CTA shows no PE * Supplemental oxygen, wean to maintain SpO2 greater than 90% * DVT prophylaxis Lovenox (2) Acute respiratory failure due to COVID-19: Code(s): U07.1 - COVID-19; J96.00 - Acute respiratory failure, unspecified whether with hypoxia or hypercapnia Status: Acute Assessment and Plan: * See above (3) Elevated d-dimer: Code(s): R79.89 - Other specified abnormal findings of blood chemistry Status: Acute Assessment and Plan: * D-dimer 0.96 * CTA shows patchy bilateral airspace could disease, with no evidence of pulmonary embolism * probably related to COVID-19 * continue trend (4) Hypothyroidism: Code(s): E03.9 - Hypothyroidism, unspecified Status: Acute Assessment and Plan: * continue levothyroxine 88 mcg p.o. daily * check TSH (5) Fluid overload: Code(s): E87.70 - Fluid overload, unspecified Status: Acute Assessment and Plan: * BNP 1000 * Get echo for fluid status * Give one dose of IV lasix 40mg * Trend urine output * Daily weights (6) Hyponatremia: Code(s): E87.1 - Hypo-osmolality and hyponatremia Status: Acute Assessment and Plan: * sodium at admission was 127 * current sodium 133 * IV fluids and rehydration took place * seems to be resolved at this time * continue to monitor and trend Time Spent With Patient Time with patient: Greater than 35 minutes Subjective Date/time seen: 08/25/21 0745 Interval history: Date/Time: 08/23/21 22:33 Narrative: This is a 65 year old female who presents to the ED today with persistent symptoms since diagnosis of COVID-19 on 08/16/2021. She started having symptoms on 08/14/2021. Has been having intermittent fever generalized weakness loss of appetite and body aches. She went for her monoclonal antibody infusion today following which she has not felt well. She developed fever and was extremely weak and hence came to the ED for evaluation. EMS was called and was noted to have oxygen saturation of 84% and has been placed on oxygen supplementation. She denies any shortness of breath or chest pain or any diagnosis of chronic lung disease in the past. She denies any abdominal pain nausea vomiting or diarrhea. With her new hypoxia she is admitted for further evaluation and management Date/Time 08/24/21 1345 Patient is laying flat in bed. She was wondering when they were going to wean her off the oxygen. Checking her saturation she was 94%. She was placed on room air at that time. She was able to hold her own with a saturation of 92% while laying flat. She did stated that she has been able to get up and down out of bed. She States that she is feeling better today and not as dizzy. She also states that she feels like she is not short of breath. And not as weak. She also talked to me about being dizzy and stated that that has gotten better and that she does not get dizzy when she gets up and down. She denies chest pain, cough, na
--- NOTE | 2021-08-25 07:45 | PM.IMPN ---
Progress Note: A&P Assessment and Plan (1) Pneumonia due to 2019 novel coronavirus: Code(s): U07.1 - COVID-19; J12.82 - Pneumonia due to coronavirus disease 2019 Status: Acute Assessment and Plan: Decadron and remdesivir day 2 Symptoms started 08/14/2021 formally diagnosed 08/16/2021 monoclonal antibody infusion 08/23/2021. inflammatory markers: Ferritin 594, LDH 736, CRP 11.3, Dimer 0.96 08/24/21, repeat in the am CTA shows no PE Supplemental oxygen, wean to maintain SpO2 greater than 90% DVT prophylaxis Lovenox (2) Acute respiratory failure due to COVID-19: Code(s): U07.1 - COVID-19; J96.00 - Acute respiratory failure, unspecified whether with hypoxia or hypercapnia Status: Acute Assessment and Plan: See above (3) Elevated d-dimer: Code(s): R79.89 - Other specified abnormal findings of blood chemistry Status: Acute Assessment and Plan: D-dimer 0.96 CTA shows patchy bilateral airspace could disease, with no evidence of pulmonary embolism probably related to COVID-19 continue trend (4) Hypothyroidism: Code(s): E03.9 - Hypothyroidism, unspecified Status: Acute Assessment and Plan: continue levothyroxine 88 mcg p.o. daily check TSH (5) Fluid overload: Code(s): E87.70 - Fluid overload, unspecified Status: Acute Assessment and Plan: BNP 1000 Get echo for fluid status Give one dose of IV lasix 40mg Trend urine output Daily weights (6) Hyponatremia: Code(s): E87.1 - Hypo-osmolality and hyponatremia Status: Acute Assessment and Plan: sodium at admission was 127 current sodium 133 IV fluids and rehydration took place seems to be resolved at this time continue to monitor and trend Time Spent With Patient Time with patient: Greater than 35 minutes Subjective Date/time seen: 08/25/21 2645 Interval history: Date/Time: 08/23/21 22:33 Narrative: This is a 65 year old female who presents to the ED today with persistent symptoms since diagnosis of COVID-19 on 08/16/2021. She started having symptoms on 08/14/2021. Has been having intermittent fever generalized weakness loss of appetite and body aches. She went for her monoclonal antibody infusion today following which she has not felt well. She developed fever and was extremely weak and hence came to the ED for evaluation. EMS was called and was noted to have oxygen saturation of 84% and has been placed on oxygen supplementation. She denies any shortness of breath or chest pain or any diagnosis of chronic lung disease in the past. She denies any abdominal pain nausea vomiting or diarrhea. With her new hypoxia she is admitted for further evaluation and management Date/Time 08/24/21 1345 Patient is laying flat in bed. She was wondering when they were going to wean her off the oxygen. Checking her saturation she was 94%. She was placed on room air at that time. She was able to hold her own with a saturation of 92% while laying flat. She did stated that she has been able to get up and down out of bed. She States that she is feeling better today and not as dizzy. She also states that she feels like she is not short of breath. And not as weak. She also talked to me about being dizzy and stated that that has gotten better and that she does not get dizzy when she gets up and down. She denies chest pain, cough, nausea, vomiting, diarrhea, constipation, weakness, fatigue. Date/Time 08/25/21 0745 Patient was lying in bed whenever I walked in. Patient stated that overnight she woke up with sudden shortness of breath. She felt like she was unable to breathe or take a deep breath. She also had nausea with no vomiting. When the nurse came in she stated that her saturations were in the 80s and they put her on 4 L nasal cannula at that time. She does have a cough it soun
[2021-08-25 08:00] VITALS: BP 143/77; PULSE 76; RESP 16; TEMP 36.3; O2SAT 92; O2SAT 94
[2021-08-25] MEDS: FAMOTIDINE 20 MG/2 ML VIAL IV PUSH ×2 (08:02→19:31)
[2021-08-25] MEDS: ENOXAPARIN 40 MG/0.4 ML SYRINGE SUB-Q (08:02)
[2021-08-25] MEDS: PANTOPRAZOLE 40 MG TABLET PO (08:02)
[2021-08-25] MEDS: SUMAtriptan SUCCINATE 25 MG TABLET 100 MG PO (08:02)
[2021-08-25] MEDS: FUROSEMIDE INJ 40 MG/4 ML VIAL IV PUSH (11:49)
[2021-08-25 12:16] VITALS: BP 142/65; PULSE 69; RESP 20; TEMP 36.4; O2SAT 91
[2021-08-25 17:14] VITALS: BP 130/65; PULSE 79; RESP 18; TEMP 36.3; O2SAT 92
[2021-08-25] MEDS: LORazepam (*CRX) 0.5 MG TABLET PO (19:31)
[2021-08-25 20:00] VITALS: BP 126/60; PULSE 80; RESP 18; TEMP 36.4; O2SAT 93; O2SAT 94
[2021-08-25] MEDS: REMDESIVIR 100 MG/NS 250 ML 100 MG/250 ML BAG 250 MG IVPB (20:53)
[2021-08-26] VITALS (9 sets, daily range): BP systolic 97–132; BP diastolic 52–64; PULSE 69–87; RESP 16–18; TEMP 35.4–36.9; O2SAT 82–95
[2021-08-26] MEDS: LEVOTHYROXINE SODIUM 88 MCG TABLET PO (06:48)
[2021-08-26 07:53] LABS: Basophils Percent Auto 0.1 % (0.2-1.2); Hematocrit 39.4 % (37.0-47.0); Hemoglobin 13.2 g/dL (12.0-15.0); Immature Granulocyte Absolute 0.06 K/mm3 (0.00-0.031); Immature Granulocyte Percent A 0.6 % (0-0.5); Lymphocytes Absolute Auto 1.89 K/mm3 (0.9-3.2); Mean Corpuscular HGB Conc 33.5 g/dl (32-36); Mean Corpuscular Hemoglobin 31.6 pg (26-34); Mean Corpuscular Volume 94.3 fl (80-100); Mean Platelet Volume 9.9 fl (7.4-10.4); Monocytes Absolute Auto 0.4 K/mm3 (0.1-0.6); Monocytes Percent Auto 3.9 % (2.6-8.5); Neutrophils Absolute Auto 8.1 K/mm3 (1.3-6.7); Neutrophils Percent Auto 77.4 % (45.5-73.1); Platelet Count Result 329 k/mm3 (150-375); Red Blood Count 4.18 M/mm3 (4.2-5.4); Red Cell Distribution Width 13.9 % (11.5-14.5); White Blood Count 10.5 K/mm3 (4.5-10.0)
[2021-08-26 08:03] LABS: INR 1.1; Prothrombin Time 13.8 Seconds (11.1-14.7)
[2021-08-26 08:06] LABS: D Dimer 0.84 ug/mL (<0.48)
[2021-08-26 08:07] LABS: Alanine Aminotransferase 64 U/L (4-35); Albumin Level 3.8 g/dL (3.5-5.1); Alkaline Phosphatase 96 U/L (38-126); Anion Gap 7 mmol/L (8-16); Aspartate Amino Transferase 74 U/L (14-36); Bilirubin,Total 0.7 mg/dL (0.2-1.3); Blood Urea Nitrogen 19 mg/dL (7-17); CRP 3.8 mg/dL (<1.0); Carbon Dioxide 27 mmol/L (22-30); Chloride 98 mmol/L (98-107); Estimated CRCL calculation 61 ml/min; Estimated Glomerular Filt Rate > 60; Glucose 89 mg/dL (65-110); Lactate Dehydrogenase 1007 U/L (313-618); Magnesium 2.4 mg/dL (1.6-2.3); Potassium 3.8 mmol/L (3.4-5.0); Sodium 132 mmol/L (137-145)
[2021-08-26] MEDS: PANTOPRAZOLE 40 MG TABLET PO (08:13)
[2021-08-26] MEDS: SUMAtriptan SUCCINATE 25 MG TABLET 100 MG PO (08:13)
[2021-08-26] MEDS: ENOXAPARIN 40 MG/0.4 ML SYRINGE SUB-Q (08:14)
[2021-08-26] MEDS: FAMOTIDINE 20 MG/2 ML VIAL IV PUSH ×2 (08:14→21:32)
--- NOTE | 2021-08-26 08:45 | PM.IMPN ---
Progress Note: A&P Assessment and Plan (1) Pneumonia due to 2019 novel coronavirus: Code(s): U07.1 - COVID-19; J12.82 - Pneumonia due to coronavirus disease 2018 Status: Acute Assessment and Plan: Decadron, increase to BID and remdesivir day 3 Symptoms started 08/14/2021 formally diagnosed 08/16/2021 monoclonal antibody infusion 08/23/2021. inflammatory markers: Ferritin 594, LDH 1007, CRP 3.8, Dimer 0.84 08/26/21 Start patient on Baricitinib CTA shows no PE Supplemental oxygen, wean to maintain SpO2 greater than 90% DVT prophylaxis Lovenox (2) Acute respiratory failure due to COVID-19: Code(s): U07.1 - COVID-19; J96.00 - Acute respiratory failure, unspecified whether with hypoxia or hypercapnia Status: Acute Assessment and Plan: Oxygenation demand has greatly increased Titrate to maintain saturations See above (3) Elevated d-dimer: Code(s): R79.89 - Other specified abnormal findings of blood chemistry Status: Acute Assessment and Plan: D-dimer 0.84 CTA shows patchy bilateral airspace could disease, with no evidence of pulmonary embolism probably related to COVID-19 continue trend (4) Hypothyroidism: Code(s): E03.9 - Hypothyroidism, unspecified Status: Acute Assessment and Plan: continue levothyroxine 88 mcg p.o. daily check TSH (5) Fluid overload: Code(s): E87.70 - Fluid overload, unspecified Status: Acute Assessment and Plan: BNP 1000 Get echo for fluid status IV lasix 40mg daily day 1 Trend urine output Daily weights (6) Hyponatremia: Code(s): E87.1 - Hypo-osmolality and hyponatremia Status: Acute Assessment and Plan: sodium at admission was 127 current sodium 132 IV fluids and rehydration took place seems to be resolved at this time continue to monitor and trend (7) Constipation: Code(s): K59.00 - Constipation, unspecified Status: Acute Assessment and Plan: Stated last BM was 2 days ago Add miralax, colace, and Suppository (8) Back pain: Code(s): M54.9 - Dorsalgia, unspecified Status: Acute Assessment and Plan: Add baclofen for comfort Add norco for general pain Encouraged laying on stomach and position changes Subjective Date/time seen: 08/26/21 08:45 Interval history: Date/Time: 08/23/21 22:33 Narrative: This is a 65 year old female who presents to the ED today with persistent symptoms since diagnosis of COVID-19 on 08/16/2021. She started having symptoms on 08/14/2021. Has been having intermittent fever generalized weakness loss of appetite and body aches. She went for her monoclonal antibody infusion today following which she has not felt well. She developed fever and was extremely weak and hence came to the ED for evaluation. EMS was called and was noted to have oxygen saturation of 84% and has been placed on oxygen supplementation. She denies any shortness of breath or chest pain or any diagnosis of chronic lung disease in the past. She denies any abdominal pain nausea vomiting or diarrhea. With her new hypoxia she is admitted for further evaluation and management Date/Time 08/24/21 1345 Patient is laying flat in bed. She was wondering when they were going to wean her off the oxygen. Checking her saturation she was 94%. She was placed on room air at that time. She was able to hold her own with a saturation of 92% while laying flat. She did stated that she has been able to get up and down out of bed. She States that she is feeling better today and not as dizzy. She also states that she feels like she is not short of breath. And not as weak. She also talked to me about being dizzy and stated that that has gotten better and that she does not get dizzy when she gets up and down. She denies chest pain, cough, nausea,
--- NOTE | 2021-08-26 08:45 | P.PNIM_ITS ---
Progress Note: A&P Assessment and Plan (1) Pneumonia due to 2019 novel coronavirus: Code(s): U07.1 - COVID-19; J12.82 - Pneumonia due to coronavirus disease 2018 Status: Acute Assessment and Plan: * Decadron, increase to BID and remdesivir day 3 * Symptoms started 08/14/2021 * formally diagnosed 08/16/2021 * monoclonal antibody infusion 08/23/2021. * inflammatory markers: Ferritin 594, LDH 1007, CRP 3.8, Dimer 0.84 08/26/21 * Start patient on Baricitinib * CTA shows no PE * Supplemental oxygen, wean to maintain SpO2 greater than 90% * DVT prophylaxis Lovenox (2) Acute respiratory failure due to COVID-19: Code(s): U07.1 - COVID-19; J96.00 - Acute respiratory failure, unspecified whether with hypoxia or hypercapnia Status: Acute Assessment and Plan: * Oxygenation demand has greatly increased * Titrate to maintain saturations * See above (3) Elevated d-dimer: Code(s): R79.89 - Other specified abnormal findings of blood chemistry Status: Acute Assessment and Plan: * D-dimer 0.84 * CTA shows patchy bilateral airspace could disease, with no evidence of pulmonary embolism * probably related to COVID-19 * continue trend (4) Hypothyroidism: Code(s): E03.9 - Hypothyroidism, unspecified Status: Acute Assessment and Plan: * continue levothyroxine 88 mcg p.o. daily * check TSH (5) Fluid overload: Code(s): E87.70 - Fluid overload, unspecified Status: Acute Assessment and Plan: * BNP 1000 * Get echo for fluid status * IV lasix 40mg daily day 1 * Trend urine output * Daily weights (6) Hyponatremia: Code(s): E87.1 - Hypo-osmolality and hyponatremia Status: Acute Assessment and Plan: * sodium at admission was 127 * current sodium 132 * IV fluids and rehydration took place * seems to be resolved at this time * continue to monitor and trend (7) Constipation: Code(s): K59.00 - Constipation, unspecified Status: Acute Assessment and Plan: * Stated last BM was 2 days ago * Add miralax, colace, and Suppository (8) Back pain: Code(s): M54.9 - Dorsalgia, unspecified Status: Acute Assessment and Plan: * Add baclofen for comfort * Add norco for general pain * Encouraged laying on stomach and position changes Subjective Date/time seen: 08/26/21 08:45 Interval history: Date/Time: 08/23/21 22:33 Narrative: This is a 65 year old female who presents to the ED today with persistent symptoms since diagnosis of COVID-19 on 08/16/2021. She started having symptoms on 08/14/2021. Has been having intermittent fever generalized weakness loss of appetite and body aches. She went for her monoclonal antibody infusion today following which she has not felt well. She developed fever and was extremely weak and hence came to the ED for evaluation. EMS was called and was noted to have oxygen saturation of 84% and has been placed on oxygen supplementation. She denies any shortness of breath or chest pain or any diagnosis of chronic lung disease in the past. She denies any abdominal pain nausea vomiting or diarrhea. With her new hypoxia she is admitted for further e valuation and management Date/Time 08/24/21 1345 Patient is laying flat in bed. She was wondering when they were going to wean her off the o
[2021-08-26] MEDS: BISACODYL 10 MG SUPPOSITORY (11:43)
[2021-08-26] MEDS: BARICITINIB 2 MG TABLET 4 MG PO (15:57)
[2021-08-26] MEDS: ONDANSETRON INJ 4 MG/2 ML VIAL IV PUSH (16:04)
[2021-08-26] MEDS: LORazepam (*CRX) 0.5 MG TABLET PO (21:32)
[2021-08-26] MEDS: REMDESIVIR 100 MG/NS 250 ML 100 MG/250 ML BAG 250 MG IVPB (21:33)
[2021-08-26] MEDS: ACETAMINOPHEN 500 MG TABLET 1000 MG PO (21:33)
[2021-08-27] VITALS (8 sets, daily range): BP systolic 103–129; BP diastolic 60–73; PULSE 58–71; RESP 14–18; TEMP 35.7–36.7; O2SAT 90–96
[2021-08-27] MEDS: LEVOTHYROXINE SODIUM 88 MCG TABLET PO (06:02)
[2021-08-27] MEDS: ACETAMINOPHEN 500 MG TABLET 1000 MG PO ×3 (06:02→21:52)
[2021-08-27 06:18] LABS: Basophils Percent Auto 0.4 % (0.2-1.2); Hematocrit 36.2 % (37.0-47.0); Hemoglobin 12.3 g/dL (12.0-15.0); Immature Granulocyte Absolute 0.05 K/mm3 (0.00-0.031); Lymphocytes Absolute Auto 1.11 K/mm3 (0.9-3.2); Lymphocytes Percent Auto 21.2 % (18.3-44.2); Mean Corpuscular Hemoglobin 31.3 pg (26-34); Mean Corpuscular Volume 92.1 fl (80-100); Mean Platelet Volume 9.7 fl (7.4-10.4); Monocytes Absolute Auto 0.3 K/mm3 (0.1-0.6); Monocytes Percent Auto 5.3 % (2.6-8.5); Neutrophils Absolute Auto 3.8 K/mm3 (1.3-6.7); Neutrophils Percent Auto 72.1 % (45.5-73.1); Platelet Count Result 333 k/mm3 (150-375); Red Blood Count 3.93 M/mm3 (4.2-5.4); Red Cell Distribution Width 13.3 % (11.5-14.5); White Blood Count 5.2 K/mm3 (4.5-10.0)
[2021-08-27 06:23] LABS: Alanine Aminotransferase 63 U/L (4-35); Albumin Level 3.4 g/dL (3.5-5.1); Alkaline Phosphatase 93 U/L (38-126); Anion Gap 8 mmol/L (8-16); Aspartate Amino Transferase 54 U/L (14-36); Bilirubin,Total 0.6 mg/dL (0.2-1.3); Blood Urea Nitrogen 19 mg/dL (7-17); Calcium 8.5 mg/dL (8.4-10.2); Carbon Dioxide 25 mmol/L (22-30); Chloride 102 mmol/L (98-107); Estimated CRCL calculation 69 ml/min; Estimated Glomerular Filt Rate > 60; Glucose 142 mg/dL (65-110); Magnesium 2.6 mg/dL (1.6-2.3); Potassium 3.9 mmol/L (3.4-5.0); Sodium 135 mmol/L (137-145)
[2021-08-27 06:29] LABS: INR 1.1; Prothrombin Time 13.8 Seconds (11.1-14.7)
[2021-08-27] MEDS: BARICITINIB 2 MG TABLET 4 MG PO (08:22)
[2021-08-27] MEDS: PANTOPRAZOLE 40 MG TABLET PO (08:22)
[2021-08-27] MEDS: SUMAtriptan SUCCINATE 25 MG TABLET 100 MG PO (08:22)
[2021-08-27] MEDS: ENOXAPARIN 40 MG/0.4 ML SYRINGE SUB-Q (08:23)
[2021-08-27] MEDS: FAMOTIDINE 20 MG/2 ML VIAL IV PUSH ×2 (08:23→21:52)
[2021-08-27] MEDS: FUROSEMIDE INJ 40 MG/4 ML VIAL IV PUSH (08:23)
--- NOTE | 2021-08-27 09:40 | P.PNIM_ITS ---
Progress Note: A&P Assessment and Plan (1) Pneumonia due to 2019 novel coronavirus: Code(s): U07.1 - COVID-19; J12.82 - Pneumonia due to coronavirus disease 2018 Status: Acute Assessment and Plan: * Decadron, increase to BID and remdesivir day 4 * Symptoms started 08/14/2021 * formally diagnosed 08/16/2021 * monoclonal antibody infusion 08/23/2021. * inflammatory markers: Ferritin 594, LDH 1007, CRP 3.8, Dimer 0.84 08/26/21 * Start patient on Baricitinib * CTA shows no PE * Supplemental oxygen, wean to maintain SpO2 greater than 90% * DVT prophylaxis Lovenox (2) Acute respiratory failure due to COVID-19: Code(s): U07.1 - COVID-19; J96.00 - Acute respiratory failure, unspecified whether with hypoxia or hypercapnia Status: Acute Assessment and Plan: * Oxygenation demand has greatly increased * Titrate to maintain saturations * See above (3) Elevated d-dimer: Code(s): R79.89 - Other specified abnormal findings of blood chemistry Status: Acute Assessment and Plan: * D-dimer 0.84 * CTA shows patchy bilateral airspace could disease, with no evidence of pulmonary embolism * probably related to COVID-19 * continue trend (4) Hypothyroidism: Code(s): E03.9 - Hypothyroidism, unspecified Status: Acute Assessment and Plan: * continue levothyroxine 88 mcg p.o. daily * TSH 1.380 (5) Fluid overload: Code(s): E87.70 - Fluid overload, unspecified Status: Acute Assessment and Plan: * BNP 1000 * Echo EF of 60-65% with normal diastolic function * IV lasix 40mg daily day 1 * Trend urine output * Daily weights (6) Hyponatremia: Code(s): E87.1 - Hypo-osmolality and hyponatremia Status: Acute Assessment and Plan: * sodium at admission was 127 * current sodium 135 * IV fluids and rehydration took place * seems to be resolved at this time * continue to monitor and trend (7) Constipation: Code(s): K59.00 - Constipation, unspecified Status: Acute Assessment and Plan: * Resolved at this time * Stated last BM was 2 days ago * Add miralax, colace, and Suppository (8) Back pain: Code(s): M54.9 - Dorsalgia, unspecified Status: Acute Assessment and Plan: * Add baclofen for comfort * Add norco for general pain * Encouraged laying on stomach and position changes Time Spent With Patient Time with patient: Greater than 35 minutes Subjective Date/time seen: 08/27/21 0940 Interval history: Date/Time: 08/23/21 22:33 Narrative: This is a 65 year old female who presents to the ED today with persistent symptoms since diagnosis of COVID-19 on 08/16/2021. She started having symptoms on 08/14/2021. Has been having intermittent fever generalized weakness loss of appetite and body aches. She went for her monoclonal antibody infusion today following which she has not felt well. She developed fever and was extremely weak and hence came to the ED for evaluation. EMS was called and was noted to have oxygen saturation of 84% and has been placed on oxygen supplementation. She denies any shortness of breath or chest pain or any diagnosis of chronic lung disease in the past. She denies any abdominal pain nausea vomiting or diarrhea. With her new hypoxia she is admitted for further evaluation and management Da
--- NOTE | 2021-08-27 09:40 | PM.IMPN ---
Progress Note: A&P Assessment and Plan (1) Pneumonia due to 2019 novel coronavirus: Code(s): U07.1 - COVID-19; J12.82 - Pneumonia due to coronavirus disease 2018 Status: Acute Assessment and Plan: Decadron, increase to BID and remdesivir day 4 Symptoms started 08/14/2021 formally diagnosed 08/16/2021 monoclonal antibody infusion 08/23/2021. inflammatory markers: Ferritin 594, LDH 1007, CRP 3.8, Dimer 0.84 08/26/21 Start patient on Baricitinib CTA shows no PE Supplemental oxygen, wean to maintain SpO2 greater than 90% DVT prophylaxis Lovenox (2) Acute respiratory failure due to COVID-19: Code(s): U07.1 - COVID-19; J96.00 - Acute respiratory failure, unspecified whether with hypoxia or hypercapnia Status: Acute Assessment and Plan: Oxygenation demand has greatly increased Titrate to maintain saturations See above (3) Elevated d-dimer: Code(s): R79.89 - Other specified abnormal findings of blood chemistry Status: Acute Assessment and Plan: D-dimer 0.84 CTA shows patchy bilateral airspace could disease, with no evidence of pulmonary embolism probably related to COVID-19 continue trend (4) Hypothyroidism: Code(s): E03.9 - Hypothyroidism, unspecified Status: Acute Assessment and Plan: continue levothyroxine 88 mcg p.o. daily TSH 1.380 (5) Fluid overload: Code(s): E87.70 - Fluid overload, unspecified Status: Acute Assessment and Plan: BNP 1000 Echo EF of 60-65% with normal diastolic function IV lasix 40mg daily day 1 Trend urine output Daily weights (6) Hyponatremia: Code(s): E87.1 - Hypo-osmolality and hyponatremia Status: Acute Assessment and Plan: sodium at admission was 127 current sodium 135 IV fluids and rehydration took place seems to be resolved at this time continue to monitor and trend (7) Constipation: Code(s): K59.00 - Constipation, unspecified Status: Acute Assessment and Plan: Resolved at this time Stated last BM was 2 days ago Add miralax, colace, and Suppository (8) Back pain: Code(s): M54.9 - Dorsalgia, unspecified Status: Acute Assessment and Plan: Add baclofen for comfort Add norco for general pain Encouraged laying on stomach and position changes Time Spent With Patient Time with patient: Greater than 35 minutes Subjective Date/time seen: 08/27/21 0940 Interval history: Date/Time: 08/23/21 22:33 Narrative: This is a 65 year old female who presents to the ED today with persistent symptoms since diagnosis of COVID-19 on 08/16/2021. She started having symptoms on 08/14/2021. Has been having intermittent fever generalized weakness loss of appetite and body aches. She went for her monoclonal antibody infusion today following which she has not felt well. She developed fever and was extremely weak and hence came to the ED for evaluation. EMS was called and was noted to have oxygen saturation of 84% and has been placed on oxygen supplementation. She denies any shortness of breath or chest pain or any diagnosis of chronic lung disease in the past. She denies any abdominal pain nausea vomiting or diarrhea. With her new hypoxia she is admitted for further evaluation and management Date/Time 08/24/21 1345 Patient is laying flat in bed. She was wondering when they were going to wean her off the oxygen. Checking her saturation she was 94%. She was placed on room air at that time. She was able to hold her own with a saturation of 92% while laying flat. She did stated that she has been able to get up and down out of bed. She States that she is feeling better today and not as dizzy. She also states that she feels like she is not short of breath. And not as weak. She also talked to me about being dizzy and stated that that
[2021-08-27] MEDS: ONDANSETRON INJ 4 MG/2 ML VIAL IV PUSH (16:27)
[2021-08-27] MEDS: LORazepam (*CRX) 0.5 MG TABLET PO (18:58)
[2021-08-27] MEDS: REMDESIVIR 100 MG/NS 250 ML 100 MG/250 ML BAG 250 MG IVPB (21:52)
[2021-08-28] VITALS (11 sets, daily range): BP systolic 104–134; BP diastolic 55–81; PULSE 58–71; RESP 14–20; TEMP 36.2–36.8; O2SAT 82–94
[2021-08-28] MEDS: ACETAMINOPHEN 500 MG TABLET 1000 MG PO ×2 (04:09→15:36)
[2021-08-28 06:00] LABS: Basophils Percent Auto 0.2 % (0.2-1.2); Hematocrit 37.2 % (37.0-47.0); Hemoglobin 12.7 g/dL (12.0-15.0); Immature Granulocyte Absolute 0.08 K/mm3 (0.00-0.031); Immature Granulocyte Percent A 1.3 % (0-0.5); Lymphocytes Absolute Auto 1.22 K/mm3 (0.9-3.2); Mean Corpuscular HGB Conc 34.1 g/dl (32-36); Mean Corpuscular Hemoglobin 31.7 pg (26-34); Mean Corpuscular Volume 92.8 fl (80-100); Mean Platelet Volume 9.5 fl (7.4-10.4); Monocytes Absolute Auto 0.4 K/mm3 (0.1-0.6); Monocytes Percent Auto 6.6 % (2.6-8.5); Neutrophils Absolute Auto 4.4 K/mm3 (1.3-6.7); Neutrophils Percent Auto 71.9 % (45.5-73.1); Platelet Count Result 354 k/mm3 (150-375); Red Blood Count 4.01 M/mm3 (4.2-5.4); Red Cell Distribution Width 13.4 % (11.5-14.5); White Blood Count 6.1 K/mm3 (4.5-10.0)
[2021-08-28 06:25] LABS: Alanine Aminotransferase 51 U/L (4-35); Aspartate Amino Transferase 38 U/L (14-36); Estimated CRCL calculation 69 ml/min; Estimated Glomerular Filt Rate > 60
[2021-08-28] MEDS: LEVOTHYROXINE SODIUM 88 MCG TABLET PO (06:37)
--- NOTE | 2021-08-28 07:00 | P.PNIM_ITS ---
Progress Note: A&P Assessment and Plan (1) Pneumonia due to 2019 novel coronavirus: Code(s): U07.1 - COVID-19; J12.82 - Pneumonia due to coronavirus disease 2019 Status: Acute Assessment and Plan: * Decadron, increase to BID and remdesivir day 5, will extend for another 5 days * Symptoms started 08/14/2021 * formally diagnosed 08/16/2021 * monoclonal antibody infusion 08/23/2021. * inflammatory markers: Ferritin 838, LDH 838, CRP 2.9 * Start patient on Baricitinib * CTA shows no PE * Supplemental oxygen, wean to maintain SpO2 greater than 90% * Weaned to 6L high flow cannula * DVT prophylaxis Lovenox * Repeat chest xray shows worsened diffuse lung disease 08/27/21 (2) Acute respiratory failure due to COVID-19: Code(s): U07.1 - COVID-19; J96.00 - Acute respiratory failure, unspecified whether with hypoxia or hypercapnia Status: Acute Assessment and Plan: * Oxygenation demand has greatly increased * Titrate to maintain saturations * See above (3) Elevated d-dimer: Code(s): R79.89 - Other specified abnormal findings of blood chemistry Status: Acute Assessment and Plan: * D-dimer 0.84 08/26/21 * CTA shows patchy bilateral airspace could disease, with no evidence of pulmonary embolism * probably related to COVID-19 * continue trend (4) Hypothyroidism: Code(s): E03.9 - Hypothyroidism, unspecified Status: Acute Assessment and Plan: * continue levothyroxine 88 mcg p.o. daily * TSH 1.380 (5) Fluid overload: Code(s): E87.70 - Fluid overload, unspecified Status: Acute Assessment and Plan: * BNP 1000 * Echo EF of 60-65% with normal diastolic function * IV lasix 40mg daily, DC at this time since patient is complaining of being dry * Trend urine output * Daily weights (6) Hyponatremia: Code(s): E87.1 - Hypo-osmolality and hyponatremia Status: Acute Assessment and Plan: * sodium at admission was 127 * current sodium 133 * IV fluids and rehydration took place * seems to be resolved at this time * continue to monitor and trend (7) Back pain: Code(s): M54.9 - Dorsalgia, unspecified Status: Acute Assessment and Plan: * Add baclofen for comfort * Add norco for general pain * Encouraged laying on stomach and position changes (8) Headache: Code(s): R51.9 - Headache, unspecified Status: Acute Assessment and Plan: * Complaints of a headache for the last few days * Continue home Imitrex PRN * Seems to be relieving with current treatment Time Spent With Patient Time with patient: Greater than 35 minutes Subjective Date/time seen: 08/28/21 07:00 Interval history: Date/Time: 08/23/21 22:33 Narrative: This is a 65 year old female who presents to the ED today with persistent symptoms since diagnosis of COVID-19 on 08/16/2021. She started having symptoms on 08/14/2021. Has been having intermittent fever generalized weakness loss of appetite and body aches. She went for her monoclonal antibody infusion today following which she has not felt well. She developed fever and was extremely weak and hence came to the ED for evaluation. EMS was called and was noted to have oxygen saturation of 84% and has been placed on oxygen supplementation. She denies any shortness of breath or chest pain or any
--- NOTE | 2021-08-28 07:00 | PM.IMPN ---
Progress Note: A&P Assessment and Plan (1) Pneumonia due to 2019 novel coronavirus: Code(s): U07.1 - COVID-19; J12.82 - Pneumonia due to coronavirus disease 2019 Status: Acute Assessment and Plan: Decadron, increase to BID and remdesivir day 5, will extend for another 5 days Symptoms started 08/14/2021 formally diagnosed 08/16/2021 monoclonal antibody infusion 08/23/2021. inflammatory markers: Ferritin 838, LDH 838, CRP 2.9 Start patient on Baricitinib CTA shows no PE Supplemental oxygen, wean to maintain SpO2 greater than 90% Weaned to 6L high flow cannula DVT prophylaxis Lovenox Repeat chest xray shows worsened diffuse lung disease 08/27/21 (2) Acute respiratory failure due to COVID-19: Code(s): U07.1 - COVID-19; J96.00 - Acute respiratory failure, unspecified whether with hypoxia or hypercapnia Status: Acute Assessment and Plan: Oxygenation demand has greatly increased Titrate to maintain saturations See above (3) Elevated d-dimer: Code(s): R79.89 - Other specified abnormal findings of blood chemistry Status: Acute Assessment and Plan: D-dimer 0.84 08/26/21 CTA shows patchy bilateral airspace could disease, with no evidence of pulmonary embolism probably related to COVID-19 continue trend (4) Hypothyroidism: Code(s): E03.9 - Hypothyroidism, unspecified Status: Acute Assessment and Plan: continue levothyroxine 88 mcg p.o. daily TSH 1.380 (5) Fluid overload: Code(s): E87.70 - Fluid overload, unspecified Status: Acute Assessment and Plan: BNP 1000 Echo EF of 60-65% with normal diastolic function IV lasix 40mg daily, DC at this time since patient is complaining of being dry Trend urine output Daily weights (6) Hyponatremia: Code(s): E87.1 - Hypo-osmolality and hyponatremia Status: Acute Assessment and Plan: sodium at admission was 127 current sodium 133 IV fluids and rehydration took place seems to be resolved at this time continue to monitor and trend (7) Back pain: Code(s): M54.9 - Dorsalgia, unspecified Status: Acute Assessment and Plan: Add baclofen for comfort Add norco for general pain Encouraged laying on stomach and position changes (8) Headache: Code(s): R51.9 - Headache, unspecified Status: Acute Assessment and Plan: Complaints of a headache for the last few days Continue home Imitrex PRN Seems to be relieving with current treatment Time Spent With Patient Time with patient: Greater than 35 minutes Subjective Date/time seen: 08/28/21 07:00 Interval history: Date/Time: 08/23/21 22:33 Narrative: This is a 65 year old female who presents to the ED today with persistent symptoms since diagnosis of COVID-19 on 08/16/2021. She started having symptoms on 08/14/2021. Has been having intermittent fever generalized weakness loss of appetite and body aches. She went for her monoclonal antibody infusion today following which she has not felt well. She developed fever and was extremely weak and hence came to the ED for evaluation. EMS was called and was noted to have oxygen saturation of 84% and has been placed on oxygen supplementation. She denies any shortness of breath or chest pain or any diagnosis of chronic lung disease in the past. She denies any abdominal pain nausea vomiting or diarrhea. With her new hypoxia she is admitted for further evaluation and management Date/Time 08/24/21 1345 Patient is laying flat in bed. She was wondering when they were going to wean her off the oxygen. Checking her saturation she was 94%. She was placed on room air at that time. She was able to hold her own with a saturation of 92% while laying flat. She did stated that she has been able to get up and down out of bed. She States that
[2021-08-28 07:23] LABS: CRP 2.9 mg/dL (<1.0); Lactate Dehydrogenase 838 U/L (313-618)
[2021-08-28 07:29] LABS: Alanine Aminotransferase 53 U/L (4-35); Albumin Level 3.8 g/dL (3.5-5.1); Alkaline Phosphatase 92 U/L (38-126); Anion Gap 7 mmol/L (8-16); Aspartate Amino Transferase 39 U/L (14-36); Bilirubin,Total 0.6 mg/dL (0.2-1.3); Blood Urea Nitrogen 21 mg/dL (7-17); Carbon Dioxide 28 mmol/L (22-30); Chloride 98 mmol/L (98-107); Estimated CRCL calculation 61 ml/min; Estimated Glomerular Filt Rate > 60; Glucose 126 mg/dL (65-110); Potassium 4.1 mmol/L (3.4-5.0); Sodium 133 mmol/L (137-145)
[2021-08-28] MEDS: BARICITINIB 2 MG TABLET 4 MG PO (07:31)
[2021-08-28] MEDS: SUMAtriptan SUCCINATE 25 MG TABLET 100 MG PO (07:32)
[2021-08-28] MEDS: PANTOPRAZOLE 40 MG TABLET PO (07:32)
[2021-08-28] MEDS: FUROSEMIDE INJ 40 MG/4 ML VIAL IV PUSH (07:35)
[2021-08-28] MEDS: FAMOTIDINE 20 MG/2 ML VIAL IV PUSH ×2 (07:35→21:13)
[2021-08-28] MEDS: ENOXAPARIN 40 MG/0.4 ML SYRINGE SUB-Q (07:35)
[2021-08-28 11:25] LABS: INR 1.1; Prothrombin Time 13.9 Seconds (11.1-14.7)
[2021-08-28] MEDS: LORazepam (*CRX) 0.5 MG TABLET PO (18:40)
[2021-08-28] MEDS: HYDROcodone/acetaminophen (*CRX) 5-325 MG TABLET 1 TAB PO (21:12)
[2021-08-28] MEDS: REMDESIVIR 100 MG/NS 250 ML 100 MG/250 ML BAG 250 MG IVPB (21:31)
[2021-08-29] VITALS (10 sets, daily range): BP systolic 105–131; BP diastolic 53–63; PULSE 63–96; RESP 18–19; TEMP 36.2–37.2; O2SAT 84–97
[2021-08-29] MEDS: SUMAtriptan SUCCINATE 25 MG TABLET 100 MG PO (04:41)
[2021-08-29] MEDS: ALBUTEROL SULFATE (*SP) INHALER 2 PUFF INHALATION (06:47)
--- NOTE | 2021-08-29 06:51 | PC.NURSE ---
0625 Pt c/o of trouble breathing. Pt was on 11L high flow canula. Lungs CTA somewhat diminished. sat 78. Respiratory o2 increased to 15L. Respiratory called to room. Breathing tx given sats at 80 to 82. Nonrebreather started at 15L with high flow canula. Sat at 95%.
[2021-08-29 07:05] LABS: Alanine Aminotransferase 44 U/L (4-35); Albumin Level 3.8 g/dL (3.5-5.1); Alkaline Phosphatase 106 U/L (38-126); Anion Gap 10 mmol/L (8-16); Aspartate Amino Transferase 44 U/L (14-36); Bilirubin,Total 0.9 mg/dL (0.2-1.3); Blood Urea Nitrogen 25 mg/dL (7-17); CRP 1.7 mg/dL (<1.0); Carbon Dioxide 25 mmol/L (22-30); Chloride 94 mmol/L (98-107); Estimated CRCL calculation 54 ml/min; Estimated Glomerular Filt Rate > 60; Glucose 87 mg/dL (65-110); Lactate Dehydrogenase 992 U/L (313-618); Magnesium 2.3 mg/dL (1.6-2.3); Potassium 3.4 mmol/L (3.4-5.0); Sodium 129 mmol/L (137-145)
[2021-08-29 07:15] LABS: Basophils Percent Auto 0.2 % (0.2-1.2); Eosinophils Percent Auto 0.2 % (0-4.4); Hemoglobin 13.7 g/dL (12.0-15.0); Immature Granulocyte Absolute 0.17 K/mm3 (0.00-0.031); Immature Granulocyte Percent A 0.9 % (0-0.5); Lymphocytes Absolute Auto 2.88 K/mm3 (0.9-3.2); Lymphocytes Percent Auto 15.2 % (18.3-44.2); Mean Corpuscular HGB Conc 34.3 g/dl (32-36); Mean Corpuscular Hemoglobin 31.6 pg (26-34); Mean Corpuscular Volume 92.4 fl (80-100); Mean Platelet Volume 9.7 fl (7.4-10.4); Monocytes Absolute Auto 0.6 K/mm3 (0.1-0.6); Monocytes Percent Auto 3.1 % (2.6-8.5); Neutrophils Absolute Auto 15.2 K/mm3 (1.3-6.7); Neutrophils Percent Auto 80.4 % (45.5-73.1); Platelet Count Result 487 k/mm3 (150-375); Red Blood Count 4.33 M/mm3 (4.2-5.4); Red Cell Distribution Width 13.2 % (11.5-14.5); White Blood Count 18.9 K/mm3 (4.5-10.0)
[2021-08-29 07:19] LABS: INR 1.1; Prothrombin Time 13.7 Seconds (11.1-14.7)
[2021-08-29 07:22] LABS: D Dimer 1.35 ug/mL (<0.48)
[2021-08-29] MEDS: LEVOTHYROXINE SODIUM 88 MCG TABLET PO (08:19)
[2021-08-29] MEDS: ENOXAPARIN 40 MG/0.4 ML SYRINGE SUB-Q (09:00)
[2021-08-29] MEDS: PANTOPRAZOLE 40 MG TABLET PO (09:02)
[2021-08-29] MEDS: FAMOTIDINE 20 MG/2 ML VIAL IV PUSH ×2 (09:02→22:13)
[2021-08-29] MEDS: BARICITINIB 2 MG TABLET 4 MG PO (09:03)
[2021-08-29] MEDS: ACETAMINOPHEN 500 MG TABLET 1000 MG PO ×2 (16:42→22:33)
--- NOTE | 2021-08-29 17:21 | PM.IMPN ---
Progress Note: A&P Assessment and Plan (1) Pneumonia due to 2019 novel coronavirus: Code(s): U07.1 - COVID-19; J12.82 - Pneumonia due to coronavirus disease 2019 Status: Acute Assessment and Plan: Symptoms and imaging consistent with COVID pneumonia -continue Decadron, remdesivir, Lovenox and baricitinib -Symptoms started 08/14/2021 -monoclonal antibody infusion 08/23/2021. -CTA shows no PE -patient is unvaccinated -repeat chest x-ray -will start antibiotics since the patient's oxygen requirements went from 6 L yesterday to 15 L today and her white blood cell count increased. Worrisome for secondary bacterial pneumonia. She has been afebrile. -if she worsens at all, she will need to be moved to IMU and started on Airvo. Plan discussed with RN (2) Acute respiratory failure due to COVID-19: Code(s): U07.1 - COVID-19; J96.00 - Acute respiratory failure, unspecified whether with hypoxia or hypercapnia Status: Acute Assessment and Plan: As above (3) Elevated d-dimer: Code(s): R79.89 - Other specified abnormal findings of blood chemistry Status: Acute Assessment and Plan: Likely due to COVID -no PE on CTA -continue prophylactic Lovenox -no signs of DVT on exam (4) Hypothyroidism: Code(s): E03.9 - Hypothyroidism, unspecified Status: Acute Assessment and Plan: Continue levothyroxine (5) Fluid overload: Code(s): E87.70 - Fluid overload, unspecified Status: Acute Assessment and Plan: Resolved (6) Hyponatremia: Code(s): E87.1 - Hypo-osmolality and hyponatremia Status: Acute Assessment and Plan: 127 on admission and now 129 -monitor with daily labs -she was given fluids and Lasix during this stay. She appears euvolemic -will obtain urine sodium (7) Back pain: Code(s): M54.9 - Dorsalgia, unspecified Status: Acute Assessment and Plan: No complaints today (8) Headache: Code(s): R51.9 - Headache, unspecified Status: Acute Assessment and Plan: No complaints today, Continue home Imitrex PRN (9) Leukocytosis: Code(s): D72.829 - Elevated white blood cell count, unspecified Status: Acute Assessment and Plan: New today -will start on vancomycin and cefepime due to increased oxygen requirements and leukocytosis -no signs of UTI, initial UA negative -monitor daily labs Time Spent With Patient Time with patient: 25 - 35 minutes Subjective Date/time seen: 08/29/21 17:21 Interval history: Pt is a 66-year-old unvaccinated female here for COVID pneumonia. Patient was seen today and states she is feeling a little better. She continues to cough and every time she moves or tries to eat she becomes hypoxic. She had some chest pain earlier with breathing when they turned the oxygen down but once they turned back up she was feeling better. She is overall feeling okay. She has not had a bowel movement in a couple days. Review of Systems Review of Systems: All systems reviewed & are unremarkable except as noted in HPI and below Exam Narrative: General: Well developed well nourished patient in NAD HEENT: normocephalic Neck: supple Neuro: Alert and oriented x4 CV:RRR Resp:CTA--no wheezing, rhonchi or crackles. She was 82% when I walked into the room and improved 90% when the non-rebreather was applied Abd: Soft, non distended. No pain to palpation. Positive bowel sounds Extremities: No swelling, erythema, or pain to palpation. Objective Data Vital Signs Vital Signs: Vital Signs - 24 hr 08/28/21 20:00 08/28/21 21:10 08/29/21 00:00 Temperature 97.1 F L 97.6 F Pulse Rate 58 L 58 L 63 Respiratory Rate 18 18 18 Blood Pressure 125/60 118/63 Pulse Oximetry 94 94 93 08/29/21 04:00 08/29/21 06:45 08/29/21 08:00 Temperature 98.0 F 99.0 F Pulse Rate 64 92 Respiratory Rate 18 18 Blood Pressure 11
[2021-08-29] MEDS: LORazepam (*CRX) 0.5 MG TABLET PO (22:33)
[2021-08-29] MEDS: REMDESIVIR 100 MG/NS 250 ML 100 MG/250 ML BAG 250 MG IVPB (23:25)
[2021-08-30] MEDS: ONDANSETRON INJ 4 MG/2 ML VIAL IV PUSH (05:09)
[2021-08-30] MEDS: LEVOTHYROXINE SODIUM 88 MCG TABLET PO (05:11)
[2021-08-30] MEDS: SUMAtriptan SUCCINATE 25 MG TABLET 100 MG PO (05:20)
[2021-08-30 05:35] VITALS: BP 103/52; PULSE 66; RESP 16; TEMP 36.2; O2SAT 90
[2021-08-30 06:06] LABS: Sodium Urine Random 48 meq/L
[2021-08-30 06:35] LABS: INR 1.2; Prothrombin Time 14.8 Seconds (11.1-14.7)
[2021-08-30 06:43] LABS: Basophils Percent Auto 0.1 % (0.2-1.2); Hematocrit 37.2 % (37.0-47.0); Hemoglobin 12.8 g/dL (12.0-15.0); Immature Granulocyte Percent A 1.3 % (0-0.5); Lymphocytes Absolute Auto 0.85 K/mm3 (0.9-3.2); Lymphocytes Percent Auto 11.3 % (18.3-44.2); Mean Corpuscular HGB Conc 34.4 g/dl (32-36); Mean Corpuscular Hemoglobin 31.8 pg (26-34); Mean Corpuscular Volume 92.3 fl (80-100); Mean Platelet Volume 9.5 fl (7.4-10.4); Monocytes Absolute Auto 0.2 K/mm3 (0.1-0.6); Monocytes Percent Auto 2.8 % (2.6-8.5); Neutrophils Absolute Auto 6.3 K/mm3 (1.3-6.7); Neutrophils Percent Auto 84.5 % (45.5-73.1); Platelet Count Result 424 k/mm3 (150-375); Red Blood Count 4.03 M/mm3 (4.2-5.4); Red Cell Distribution Width 13.4 % (11.5-14.5); White Blood Count 7.5 K/mm3 (4.5-10.0)
[2021-08-30 06:46] LABS: Alanine Aminotransferase 34 U/L (4-35); Albumin Level 3.5 g/dL (3.5-5.1); Alkaline Phosphatase 88 U/L (38-126); Anion Gap 9 mmol/L (8-16); Aspartate Amino Transferase 38 U/L (14-36); Bilirubin,Total 0.8 mg/dL (0.2-1.3); Blood Urea Nitrogen 20 mg/dL (7-17); CRP 7.2 mg/dL (<1.0); Calcium 8.5 mg/dL (8.4-10.2); Carbon Dioxide 25 mmol/L (22-30); Chloride 99 mmol/L (98-107); Estimated CRCL calculation 68 ml/min; Estimated Glomerular Filt Rate > 60; Glucose 150 mg/dL (65-110); Potassium 3.5 mmol/L (3.4-5.0); Sodium 133 mmol/L (137-145)
[2021-08-30 08:00] VITALS: BP 103/56; PULSE 76; RESP 20; TEMP 36.1; O2SAT 92
[2021-08-30] MEDS: BARICITINIB 2 MG TABLET 4 MG PO (09:12)
[2021-08-30] MEDS: PANTOPRAZOLE 40 MG TABLET PO (09:13)
[2021-08-30] MEDS: ENOXAPARIN 40 MG/0.4 ML SYRINGE SUB-Q (09:14)
[2021-08-30 12:51] VITALS: BP 108/57; PULSE 54; RESP 24; TEMP 36.9; O2SAT 91
[2021-08-30] MEDS: HYDROcodone/acetaminophen (*CRX) 5-325 MG TABLET 1 TAB PO ×2 (13:47→22:17)
[2021-08-30 16:00] VITALS: BP 135/74; PULSE 78; RESP 24; TEMP 36.5; O2SAT 91
[2021-08-30] MEDS: WATER FOR IRRIGATION, STERILE 1,000 ML BOTTLE 1000 ML (17:40)
--- NOTE | 2021-08-30 19:11 | PM.IMPN ---
Progress Note: A&P Assessment and Plan (1) Pneumonia due to 2019 novel coronavirus: Code(s): U07.1 - COVID-19; J12.82 - Pneumonia due to coronavirus disease 2019 Status: Acute Assessment and Plan: Symptoms and imaging consistent with COVID pneumonia -continue Decadron, remdesivir, Lovenox and baricitinib -Symptoms started 08/14/2021 -monoclonal antibody infusion 08/23/2021. -CTA shows no PE -patient is unvaccinated -repeat chest x-ray -continue antibiotics since the patient's oxygen requirements went from 6 L 08/28to 15 L today and her white blood cell count increased. Worrisome for secondary bacterial pneumonia. She has been afebrile. -if she worsens at all, she will need to be moved to IMU and started on Airvo. (2) Acute respiratory failure due to COVID-19: Code(s): U07.1 - COVID-19; J96.00 - Acute respiratory failure, unspecified whether with hypoxia or hypercapnia Status: Acute Assessment and Plan: As above (3) Elevated d-dimer: Code(s): R79.89 - Other specified abnormal findings of blood chemistry Status: Acute Assessment and Plan: Likely due to COVID -no PE on CTA -continue prophylactic Lovenox -no signs of DVT on exam (4) Hypothyroidism: Code(s): E03.9 - Hypothyroidism, unspecified Status: Acute Assessment and Plan: Continue levothyroxine (5) Fluid overload: Code(s): E87.70 - Fluid overload, unspecified Status: Acute Assessment and Plan: Resolved (6) Hyponatremia: Code(s): E87.1 - Hypo-osmolality and hyponatremia Status: Acute Assessment and Plan: 127 on admission and now 133 -monitor with daily labs (7) Back pain: Code(s): M54.9 - Dorsalgia, unspecified Status: Acute Assessment and Plan: No complaints today (8) Headache: Code(s): R51.9 - Headache, unspecified Status: Acute Assessment and Plan: No complaints today, Continue home Imitrex PRN (9) Leukocytosis: Code(s): D72.829 - Elevated white blood cell count, unspecified Status: Acute Assessment and Plan: resolved -lab error yesterday? -continue abx for possible secondary PNA Subjective Date/time seen: 08/30/21 19:11 Interval history: Pt is a 66-year-old unvaccinated female here for COVID pneumonia. Patient was seen today and states she is feeling a little better and her cough is improved. No CP. She is overall feeling okay. She has not had a bowel movement in a couple days. Appetite is good. Exam Narrative: General: Well developed well nourished patient in NAD HEENT: normocephalic Neck: supple Neuro: Alert and oriented x4 CV:RRR Resp:CTA--no wheezing, rhonchi or crackles. 95% on 15L NC and mask. This was decreased to 12L and she was at 92% Abd: Soft, non distended. No pain to palpation. Positive bowel sounds Extremities: No swelling, erythema, or pain to palpation. Objective Data Vital Signs Vital Signs: Vital Signs - 24 hr 08/29/21 20:00 08/29/21 21:57 08/30/21 05:35 Temperature 99.0 F 97.1 F L Pulse Rate 70 70 66 Respiratory Rate 18 18 16 Blood Pressure 130/60 103/52 L Pulse Oximetry 97 97 90 08/30/21 08:00 08/30/21 12:51 08/30/21 16:00 Temperature 97.0 F L 98.5 F 97.7 F Pulse Rate 76 54 L 78 Respiratory Rate 20 24 H 24 H Blood Pressure 103/56 L 108/57 L 135/74 Pulse Oximetry 92 91 91 Intake/Output Intake/Output: Intake & Output 08/27/21 08/28/21 08/29/21 08/30/21 23:59 23:59 23:59 23:59 Intake Total 2050 1840 1840 2370 Output Total 2700 3200 700 1950 Balance -650 -1360 1140 420 Meds/Results Medications: Active Medications Generic Name Dose Route Start Last Admin Trade Name Freq PRN Reason Stop Dose Admin Acetaminophen 1,000 mg 08/26/21 11:11 08/29/21 22:33 Acetaminophen 500 Mg Tablet PO 1,000 mg Q6H PRN Administration Mild Pain (1-3) or Fever Hy
[2021-08-30 20:00] VITALS: BP 133/61; PULSE 61; RESP 18; TEMP 35.9; O2SAT 90
[2021-08-30 20:50] VITALS: O2SAT 93
[2021-08-30] MEDS: FAMOTIDINE 20 MG/2 ML VIAL IV PUSH (22:09)
[2021-08-30] MEDS: LORazepam (*CRX) 0.5 MG TABLET PO (22:10)
[2021-08-30] MEDS: REMDESIVIR 100 MG/NS 250 ML 100 MG/250 ML BAG 250 MG IVPB (23:25)
[2021-08-31] VITALS (11 sets, daily range): BP systolic 114–139; BP diastolic 57–74; PULSE 53–77; RESP 18; TEMP 35.9–36.8; O2SAT 90–97; BMI 28.3
[2021-08-31] MEDS: HYDROcodone/acetaminophen (*CRX) 5-325 MG TABLET 1 TAB PO (04:43)
[2021-08-31] MEDS: LEVOTHYROXINE SODIUM 88 MCG TABLET PO (06:34)
[2021-08-31 06:45] LABS: Basophils Percent Auto 0.2 % (0.2-1.2); Eosinophils Percent Auto 0.1 % (0-4.4); Hemoglobin 12.2 g/dL (12.0-15.0); Immature Granulocyte Absolute 0.12 K/mm3 (0.00-0.031); Immature Granulocyte Percent A 1.3 % (0-0.5); Lymphocytes Absolute Auto 0.78 K/mm3 (0.9-3.2); Lymphocytes Percent Auto 8.3 % (18.3-44.2); Mean Corpuscular HGB Conc 33.9 g/dl (32-36); Mean Corpuscular Hemoglobin 31.6 pg (26-34); Mean Corpuscular Volume 93.3 fl (80-100); Mean Platelet Volume 9.5 fl (7.4-10.4); Monocytes Absolute Auto 0.3 K/mm3 (0.1-0.6); Monocytes Percent Auto 3.1 % (2.6-8.5); Neutrophils Absolute Auto 8.2 K/mm3 (1.3-6.7); Platelet Count Result 393 k/mm3 (150-375); Red Blood Count 3.86 M/mm3 (4.2-5.4); Red Cell Distribution Width 13.6 % (11.5-14.5); White Blood Count 9.4 K/mm3 (4.5-10.0)
[2021-08-31 06:53] LABS: INR 1.1; Prothrombin Time 14.1 Seconds (11.1-14.7)
[2021-08-31 07:10] LABS: Alanine Aminotransferase 29 U/L (4-35); Albumin Level 3.4 g/dL (3.5-5.1); Alkaline Phosphatase 81 U/L (38-126); Anion Gap 6 mmol/L (8-16); Aspartate Amino Transferase 33 U/L (14-36); Bilirubin,Total 0.5 mg/dL (0.2-1.3); Blood Urea Nitrogen 17 mg/dL (7-17); CRP 4.8 mg/dL (<1.0); Calcium 8.7 mg/dL (8.4-10.2); Carbon Dioxide 27 mmol/L (22-30); Chloride 98 mmol/L (98-107); Estimated CRCL calculation 68 ml/min; Estimated Glomerular Filt Rate > 60; Glucose 135 mg/dL (65-110); Sodium 131 mmol/L (137-145)
[2021-08-31] MEDS: BARICITINIB 2 MG TABLET 4 MG PO (09:59)
[2021-08-31] MEDS: polyethylene glycoL 3350 17 GM POWD.PACK PO (09:59)
[2021-08-31] MEDS: ENOXAPARIN 40 MG/0.4 ML SYRINGE SUB-Q (10:00)
[2021-08-31] MEDS: PANTOPRAZOLE 40 MG TABLET PO (10:00)
--- NOTE | 2021-08-31 11:40 | PM.IMPN ---
Progress Note: A&P Assessment and Plan (1) Pneumonia due to 2019 novel coronavirus: Code(s): U07.1 - COVID-19; J12.82 - Pneumonia due to coronavirus disease 2019 Status: Acute Assessment and Plan: Symptoms and imaging consistent with COVID pneumonia -continue Decadron, remdesivir, Lovenox and baricitinib -Symptoms started 08/14/2021 -monoclonal antibody infusion 08/23/2021. -CTA shows no PE -patient is unvaccinated -repeat chest x-ray 08/30 show stable diffuse disease -continue antibiotics since the patient's oxygen requirements went from 6 L 08/28to 15 L today and her white blood cell count increased. Worrisome for secondary bacterial pneumonia. She has been afebrile. -if she worsens at all, she will need to be moved to IMU and started on Airvo. (2) Acute respiratory failure due to COVID-19: Code(s): U07.1 - COVID-19; J96.00 - Acute respiratory failure, unspecified whether with hypoxia or hypercapnia Status: Acute Assessment and Plan: As above (3) Elevated d-dimer: Code(s): R79.89 - Other specified abnormal findings of blood chemistry Status: Acute Assessment and Plan: Likely due to COVID -no PE on CTA on 08/23/21 -continue prophylactic Lovenox -no signs of DVT on exam (4) Hypothyroidism: Code(s): E03.9 - Hypothyroidism, unspecified Status: Acute Assessment and Plan: Continue levothyroxine (5) Fluid overload: Code(s): E87.70 - Fluid overload, unspecified Status: Acute Assessment and Plan: Resolved (6) Hyponatremia: Code(s): E87.1 - Hypo-osmolality and hyponatremia Status: Acute Assessment and Plan: 127 on admission and now 131 -monitor with daily labs (7) Back pain: Code(s): M54.9 - Dorsalgia, unspecified Status: Acute Assessment and Plan: No complaints today (8) Headache: Code(s): R51.9 - Headache, unspecified Status: Acute Assessment and Plan: No complaints today, Continue home Imitrex PRN (9) Leukocytosis: Code(s): D72.829 - Elevated white blood cell count, unspecified Status: Acute Assessment and Plan: resolved -lab error on 08/29? -continue abx for possible secondary PNA Subjective Date/time seen: 08/31/21 11:40 Interval history: Pt is a 66-year-old unvaccinated female here for COVID pneumonia. Patient was seen today and states she feels great. She has no shortness of breath, chest pain, and her cough is mild. She says her appetite is increased. She still has not had a bowel movement. No abdominal pain. Spoke with I&D, LOVE who states that with any activity she becomes hypoxic on 15 L high-flow nasal cannula and 15 L mask Exam Narrative: General: Well developed well nourished patient in NAD HEENT: normocephalic Neck: supple Neuro: Alert and oriented x4 CV:RRR Resp:CTA--no wheezing, rhonchi or crackles. 90% on 15L NC and mask. Abd: Soft, non distended. No pain to palpation. Positive bowel sounds Extremities: No swelling, erythema, or pain to palpation. Objective Data Vital Signs Vital Signs: Vital Signs - 24 hr 08/30/21 12:51 08/30/21 16:00 08/30/21 20:00 Temperature 98.5 F 97.7 F 96.7 F L Pulse Rate 54 L 78 61 Respiratory Rate 24 H 24 H 18 Blood Pressure 108/57 L 135/74 133/61 Pulse Oximetry 91 91 90 08/30/21 20:50 08/31/21 00:30 08/31/21 04:00 Temperature 96.7 F L 96.7 F L Pulse Rate 53 L 77 Respiratory Rate 18 18 Blood Pressure 117/66 129/66 Pulse Oximetry 93 97 90 08/31/21 08:00 Temperature 98.3 F Pulse Rate 61 Respiratory Rate 18 Blood Pressure 131/57 L Pulse Oximetry 91 Intake/Output Intake/Output: Intake & Output 08/28/21 08/29/21 08/30/21 08/31/21 23:59 23:59 23:59 23:59 Intake Total 1840 1840 2670 1080 Output Total 3200 700 1950 900 Balance -1360 1140 720 180 Meds/Results Medications: Active Medications Ge
[2021-08-31] MEDS: ACETAMINOPHEN 500 MG TABLET 1000 MG PO ×2 (14:34→21:45)
[2021-08-31] MEDS: BISACODYL 10 MG SUPPOSITORY RECTAL (18:26)
[2021-08-31] MEDS: LORazepam (*CRX) 0.5 MG TABLET PO (21:14)
[2021-08-31] MEDS: SENNOSIDES 8.6 MG TABLET PO (21:14)
[2021-08-31] MEDS: FAMOTIDINE 20 MG/2 ML VIAL IV PUSH (21:14)
[2021-08-31] MEDS: REMDESIVIR 100 MG/NS 250 ML 100 MG/250 ML BAG 250 MG IVPB (21:47)
[2021-09-01] MEDS: SUMAtriptan SUCCINATE 25 MG TABLET 100 MG PO (03:35)
[2021-09-01 03:46] VITALS: BP 116/61; PULSE 66; RESP 18; TEMP 36.8; O2SAT 93
[2021-09-01] MEDS: LEVOTHYROXINE SODIUM 88 MCG TABLET PO (05:40)
[2021-09-01 06:22] LABS: Basophils Percent Auto 0.2 % (0.2-1.2); Eosinophils Percent Auto 0.1 % (0-4.4); Hemoglobin 12.1 g/dL (12.0-15.0); Immature Granulocyte Absolute 0.16 K/mm3 (0.00-0.031); Immature Granulocyte Percent A 1.5 % (0-0.5); Lymphocytes Absolute Auto 0.77 K/mm3 (0.9-3.2); Lymphocytes Percent Auto 7.2 % (18.3-44.2); Mean Corpuscular HGB Conc 33.6 g/dl (32-36); Mean Corpuscular Volume 92.3 fl (80-100); Mean Platelet Volume 10.2 fl (7.4-10.4); Monocytes Absolute Auto 0.3 K/mm3 (0.1-0.6); Monocytes Percent Auto 2.7 % (2.6-8.5); Neutrophils Absolute Auto 9.4 K/mm3 (1.3-6.7); Neutrophils Percent Auto 88.3 % (45.5-73.1); Platelet Count Result 352 k/mm3 (150-375); Red Cell Distribution Width 13.6 % (11.5-14.5); White Blood Count 10.7 K/mm3 (4.5-10.0)
[2021-09-01 06:31] LABS: INR 1.1; Prothrombin Time 14.5 Seconds (11.1-14.7)
[2021-09-01 06:49] LABS: Alanine Aminotransferase 27 U/L (4-35); Aspartate Amino Transferase 32 U/L (14-36); Estimated CRCL calculation 79 ml/min; Estimated Glomerular Filt Rate > 60
[2021-09-01 08:00] VITALS: BP 126/70; PULSE 68; PULSE 71; RESP 18; TEMP 36.6; O2SAT 90; O2SAT 93
--- NOTE | 2021-09-01 09:10 | PM.IMPN ---
Progress Note: A&P Assessment and Plan (1) Pneumonia due to 2019 novel coronavirus: Code(s): U07.1 - COVID-19; J12.82 - Pneumonia due to coronavirus disease 2018 Status: Acute Assessment and Plan: Symptoms and imaging consistent with COVID pneumonia -continue Decadron, remdesivir (final day), Lovenox and baricitinib -Symptoms started 08/14/2021, monoclonal antibody infusion 08/23/2021. -CTA shows no PE -patient is unvaccinated -repeat chest x-ray 08/30 show stable diffuse disease -continue antibiotics since the patient's oxygen requirements went from 6 L 08/28 to 15 L and her white blood cell count increased. Worrisome for secondary bacterial pneumonia. She has been afebrile. -hypoxia is improving and she is now down to 5L but needs 10+ liters with activity and talking (2) Acute respiratory failure due to COVID-19: Code(s): U07.1 - COVID-19; J96.00 - Acute respiratory failure, unspecified whether with hypoxia or hypercapnia Status: Acute Assessment and Plan: As above (3) Elevated d-dimer: Code(s): R79.89 - Other specified abnormal findings of blood chemistry Status: Acute Assessment and Plan: Likely due to COVID -no PE on CTA on 08/23/21 -continue prophylactic Lovenox -no signs of DVT on exam (4) Hypothyroidism: Code(s): E03.9 - Hypothyroidism, unspecified Status: Acute Assessment and Plan: Continue levothyroxine (5) Fluid overload: Code(s): E87.70 - Fluid overload, unspecified Status: Acute Assessment and Plan: Resolved (6) Hyponatremia: Code(s): E87.1 - Hypo-osmolality and hyponatremia Status: Acute Assessment and Plan: 127 on admission and todays labs are pending -monitor with daily labs (7) Back pain: Code(s): M54.9 - Dorsalgia, unspecified Status: Acute Assessment and Plan: No complaints today (8) Headache: Code(s): R51.9 - Headache, unspecified Status: Acute Assessment and Plan: No complaints today, Continue home Imitrex PRN (9) Leukocytosis: Code(s): D72.829 - Elevated white blood cell count, unspecified Status: Acute Assessment and Plan: up mildly today -lab error on 08/29? -continue abx for possible secondary PNA Subjective Date/time seen: 09/01/21 09:10 Interval history: Pt is a 66-year-old unvaccinated female here for COVID pneumonia. Patient was seen today and states she feels good. She only has SOB when she gets up and moves or talks a lot. She has no chest pain. She says her appetite is increased. She still has not had a bowel movement but feels one coming today. No abdominal pain, she is passing gas. Exam Narrative: General: Well developed well nourished patient in NAD HEENT: normocephalic Neck: supple Neuro: Alert and oriented x4 CV:RRR Resp:CTA--no wheezing, rhonchi or crackles. on 5L at 92% but when talking dropped to 83 but recovered with the non re breather at bedside Abd: Soft, non distended. No pain to palpation. Positive bowel sounds Extremities: No swelling, erythema, or pain to palpation. Objective Data Vital Signs Vital Signs: Vital Signs - 24 hr 08/31/21 12:00 08/31/21 16:00 08/31/21 18:06 Temperature 97.7 F 97.4 F L Pulse Rate 71 68 Respiratory Rate 18 18 Blood Pressure 114/60 114/67 Pulse Oximetry 92 93 94 08/31/21 20:00 08/31/21 21:30 08/31/21 21:52 Temperature 98.2 F Pulse Rate 67 67 Respiratory Rate 18 18 Blood Pressure 139/59 L Pulse Oximetry 92 93 90 08/31/21 23:45 08/31/21 23:56 09/01/21 03:46 Temperature 98.0 F 98.3 F Pulse Rate 62 66 Respiratory Rate 18 18 Blood Pressure 128/74 116/61 Pulse Oximetry 96 93 93 09/01/21 08:00 Temperature 98 F Pulse Rate 68 Respiratory Rate 18 Blood Pressure 126/70 Pulse Oximetry 93 Intake/Output Intake/Output: Intake & Output 08/29/21 08/30/21
[2021-09-01 09:14] LABS: Anion Gap 5 mmol/L (8-16); Blood Urea Nitrogen 18 mg/dL (7-17); Calcium 8.9 mg/dL (8.4-10.2); Carbon Dioxide 23 mmol/L (22-30); Chloride 104 mmol/L (98-107); Estimated CRCL calculation 79 ml/min; Estimated Glomerular Filt Rate > 60; Glucose 122 mg/dL (65-110); Potassium 4.4 mmol/L (3.4-5.0); Sodium 132 mmol/L (137-145)
[2021-09-01] MEDS: ENOXAPARIN 40 MG/0.4 ML SYRINGE SUB-Q (10:41)
[2021-09-01] MEDS: FAMOTIDINE 20 MG/2 ML VIAL IV PUSH ×2 (10:41→20:17)
[2021-09-01] MEDS: PANTOPRAZOLE 40 MG TABLET PO (10:41)
[2021-09-01] MEDS: polyethylene glycoL 3350 17 GM POWD.PACK PO (10:42)
[2021-09-01] MEDS: BARICITINIB 2 MG TABLET 4 MG PO (10:42)
[2021-09-01 11:50] VITALS: BP 114/46; PULSE 71; RESP 18; TEMP 36.6; O2SAT 92
[2021-09-01] MEDS: ACETAMINOPHEN 500 MG TABLET 1000 MG PO ×2 (15:10→22:53)
[2021-09-01 15:40] VITALS: BP 131/57; PULSE 74; RESP 18; TEMP 36.8; O2SAT 93
[2021-09-01 19:11] LABS: Vancomycin Trough < 5.0 ug/mL (10.0-20.0)
[2021-09-01 20:00] VITALS: BP 131/58; PULSE 63; RESP 18; TEMP 36.5; O2SAT 95
[2021-09-01] MEDS: SENNOSIDES 8.6 MG TABLET PO (20:44)
[2021-09-01] MEDS: LORazepam (*CRX) 0.5 MG TABLET PO (20:44)
[2021-09-01] MEDS: REMDESIVIR 100 MG/NS 250 ML 100 MG/250 ML BAG 250 MG IVPB (22:50)
[2021-09-01 23:31] VITALS: BP 131/67; PULSE 57; RESP 18; TEMP 36.6; O2SAT 95
[2021-09-02 03:42] VITALS: BP 128/64; PULSE 74; RESP 18; TEMP 36.4; O2SAT 92
[2021-09-02] MEDS: ACETAMINOPHEN 500 MG TABLET 1000 MG PO ×2 (05:52→17:41)
[2021-09-02] MEDS: LEVOTHYROXINE SODIUM 88 MCG TABLET PO (05:52)
[2021-09-02 06:16] LABS: Basophils Percent Auto 0.2 % (0.2-1.2); Hematocrit 35.1 % (37.0-47.0); Immature Granulocyte Absolute 0.14 K/mm3 (0.00-0.031); Immature Granulocyte Percent A 1.3 % (0-0.5); Lymphocytes Absolute Auto 0.67 K/mm3 (0.9-3.2); Mean Corpuscular HGB Conc 34.2 g/dl (32-36); Mean Corpuscular Hemoglobin 31.3 pg (26-34); Mean Corpuscular Volume 91.6 fl (80-100); Mean Platelet Volume 9.6 fl (7.4-10.4); Monocytes Absolute Auto 0.3 K/mm3 (0.1-0.6); Monocytes Percent Auto 2.5 % (2.6-8.5); Neutrophils Absolute Auto 10.1 K/mm3 (1.3-6.7); Platelet Count Result 376 k/mm3 (150-375); Red Blood Count 3.83 M/mm3 (4.2-5.4); Red Cell Distribution Width 13.7 % (11.5-14.5); White Blood Count 11.2 K/mm3 (4.5-10.0)
[2021-09-02 06:28] LABS: INR 1.2; Prothrombin Time 14.7 Seconds (11.1-14.7)
[2021-09-02 06:32] LABS: Alanine Aminotransferase 25 U/L (4-35); Anion Gap 7 mmol/L (8-16); Aspartate Amino Transferase 27 U/L (14-36); Blood Urea Nitrogen 19 mg/dL (7-17); Calcium 8.6 mg/dL (8.4-10.2); Carbon Dioxide 22 mmol/L (22-30); Chloride 104 mmol/L (98-107); Estimated CRCL calculation 79 ml/min; Estimated Glomerular Filt Rate > 60; Glucose 203 mg/dL (65-110); Potassium 4.2 mmol/L (3.4-5.0); Sodium 133 mmol/L (137-145)
[2021-09-02 08:00] VITALS: BP 119/75; PULSE 67; RESP 18; TEMP 35.8; O2SAT 94
[2021-09-02] MEDS: polyethylene glycoL 3350 17 GM POWD.PACK PO (08:58)
[2021-09-02] MEDS: FAMOTIDINE 20 MG/2 ML VIAL IV PUSH ×2 (08:58→21:43)
[2021-09-02] MEDS: PANTOPRAZOLE 40 MG TABLET PO (08:58)
[2021-09-02] MEDS: ENOXAPARIN 40 MG/0.4 ML SYRINGE SUB-Q (08:59)
[2021-09-02] MEDS: BARICITINIB 2 MG TABLET 4 MG PO (08:59)
[2021-09-02 11:42] VITALS: BP 123/68; PULSE 65; RESP 18; TEMP 36.2; O2SAT 91
--- NOTE | 2021-09-02 12:38 | PM.IMPN ---
Progress Note: A&P Assessment and Plan (1) Pneumonia due to 2019 novel coronavirus: Code(s): U07.1 - COVID-19; J12.82 - Pneumonia due to coronavirus disease 2019 Status: Acute Assessment and Plan: Symptoms and imaging consistent with COVID pneumonia -continue Decadron, Lovenox and baricitinib. Remdesivir is complete. -Symptoms started 08/14/2021, monoclonal antibody infusion 08/23/2021. -CTA shows no PE, check d-dimer tomorrow. If it is higher may consider repeat CTA due to her significant CHÁVEZ and improvement at rest. -patient is unvaccinated -repeat chest x-ray 08/30 show stable diffuse disease -continue antibiotics since the patient's oxygen requirements went from 6 L 08/28 to 15 L and her white blood cell count increased. Worrisome for secondary bacterial pneumonia. She has been afebrile. -hypoxia is improving and she is now down to 4L but needs 10+ liters with activity and talking (2) Acute respiratory failure due to COVID-19: Code(s): U07.1 - COVID-19; J96.00 - Acute respiratory failure, unspecified whether with hypoxia or hypercapnia Status: Acute Assessment and Plan: As above (3) Elevated d-dimer: Code(s): R79.89 - Other specified abnormal findings of blood chemistry Status: Acute Assessment and Plan: Likely due to COVID -no PE on CTA on 08/23/21 -continue prophylactic Lovenox -no signs of DVT on exam (4) Hypothyroidism: Code(s): E03.9 - Hypothyroidism, unspecified Status: Acute Assessment and Plan: Continue levothyroxine (5) Fluid overload: Code(s): E87.70 - Fluid overload, unspecified Status: Acute Assessment and Plan: Resolved (6) Hyponatremia: Code(s): E87.1 - Hypo-osmolality and hyponatremia Status: Acute Assessment and Plan: 127 on admission and improved to 133 today (7) Back pain: Code(s): M54.9 - Dorsalgia, unspecified Status: Acute Assessment and Plan: No complaints today (8) Headache: Code(s): R51.9 - Headache, unspecified Status: Acute Assessment and Plan: No complaints today, Continue home Imitrex PRN (9) Leukocytosis: Code(s): D72.829 - Elevated white blood cell count, unspecified Status: Acute Assessment and Plan: up mildly today -lab error on 08/29? -continue abx for possible secondary PNA (10) Abnormal echocardiogram: Code(s): R93.1 - Abnormal findings on diagnostic imaging of heart and coronary circulation Status: Acute Assessment and Plan: Echo as noted below -she has hypokinesis of the basal inferior septum -appears euvolemic -would recommend aspirin and outpt follow up/work up -she has had no chest pain for me. EKG reviewed, no signs of ACS 1. Complete two-dimensional, color flow and Doppler transthoracic echocardiogram is performed. 2. Normal left ventricular size and thickness with overall good left ventricular contractility and estimated ejection fraction 60-65%. Hypokinesis of the basal inferior septum. Normal diastolic function. 3. Left atrial chamber dimension is mildly enlarged. 4. Mild pulmonary hypertension, estimated pulmonary arterial systolic pressure is 49 mmHg. 5. No significant valve disease. 6. Normal sinus rhythm. Subjective Date/time seen: 09/02/21 12:38 Interval history: Pt is a 66-year-old unvaccinated female here for COVID pneumonia. Patient was seen today and states she feels good. She only has SOB when she gets up and moves or talks a lot. She has no chest pain. She says her appetite is increased. She finally had a bm but did have to disimpact herself a bit. No abdominal pain. Exam Narrative: General: Well developed well nourished patient in NAD HEENT: normocephalic Neck: supple Neuro: Alert and oriented x4 CV:RRR Resp:CTA--no wheezing, rhonchi or crackles. on 4L at 92% and did not drop du
[2021-09-02 15:51] VITALS: BP 139/69; PULSE 64; RESP 18; TEMP 36; O2SAT 93
[2021-09-02 20:00] VITALS: BP 130/72; PULSE 63; RESP 16; TEMP 36.7; O2SAT 94; O2SAT 95
[2021-09-02] MEDS: LORazepam (*CRX) 0.5 MG TABLET PO (21:44)
[2021-09-02] MEDS: SENNOSIDES 8.6 MG TABLET PO (21:44)
[2021-09-03] VITALS (11 sets, daily range): BP systolic 114–147; BP diastolic 58–81; PULSE 62–84; RESP 16–20; TEMP 36.1–37.1; O2SAT 90–94
[2021-09-03] MEDS: LEVOTHYROXINE SODIUM 88 MCG TABLET PO (05:30)
[2021-09-03] MEDS: HYDROcodone/acetaminophen (*CRX) 5-325 MG TABLET 1 TAB PO (06:36)
[2021-09-03 07:41] LABS: Basophils Percent Auto 0.1 % (0.2-1.2); Hematocrit 36.9 % (37.0-47.0); Hemoglobin 12.9 g/dL (12.0-15.0); Immature Granulocyte Percent A 1.5 % (0-0.5); Lymphocytes Absolute Auto 1.05 K/mm3 (0.9-3.2); Lymphocytes Percent Auto 7.7 % (18.3-44.2); Mean Corpuscular Hemoglobin 31.9 pg (26-34); Mean Corpuscular Volume 91.1 fl (80-100); Mean Platelet Volume 9.8 fl (7.4-10.4); Monocytes Absolute Auto 0.4 K/mm3 (0.1-0.6); Monocytes Percent Auto 3.2 % (2.6-8.5); Neutrophils Percent Auto 87.5 % (45.5-73.1); Platelet Count Result 385 k/mm3 (150-375); Red Blood Count 4.05 M/mm3 (4.2-5.4); Red Cell Distribution Width 13.8 % (11.5-14.5); White Blood Count 13.7 K/mm3 (4.5-10.0)
[2021-09-03 07:49] LABS: Alanine Aminotransferase 24 U/L (4-35); Aspartate Amino Transferase 25 U/L (14-36); Cholesterol 121 mg/dL (0-200); Estimated CRCL calculation 79 ml/min; Estimated Glomerular Filt Rate > 60; HDL Direct 32 mg/dL; Triglycerides 223 mg/dL (<150)
[2021-09-03 07:53] LABS: INR 1.1; Prothrombin Time 13.6 Seconds (11.1-14.7)
[2021-09-03 07:54] LABS: Vancomycin Trough 12.2 ug/mL (10.0-20.0)
[2021-09-03 08:00] LABS: LDL Cholesterol Direct 41 mg/dL
[2021-09-03] MEDS: polyethylene glycoL 3350 17 GM POWD.PACK PO (08:44)
[2021-09-03] MEDS: FAMOTIDINE 20 MG/2 ML VIAL IV PUSH ×2 (08:46→20:09)
[2021-09-03] MEDS: ASPIRIN 81 MG ENTERIC TABLET PO (08:48)
[2021-09-03] MEDS: PANTOPRAZOLE 40 MG TABLET PO (08:48)
[2021-09-03] MEDS: BARICITINIB 2 MG TABLET 4 MG PO (08:48)
[2021-09-03] MEDS: ENOXAPARIN 40 MG/0.4 ML SYRINGE SUB-Q (08:52)
--- NOTE | 2021-09-03 13:31 | ECG_ITS ---
Measurements Intervals [place] Rate: 65 P: 47 RI: 154 QRS: 23 QRSD: 85 T: 34 QT: 368 QTc: 384 Interpretive Statements SINUS RHYTHM EARLY PRECORDIAL R/S TRANSITION MINIMAL Q WAVES- INFERIOR LEADS BORDERLINE ECG Electronically Signed On 09-03-2021 16:57:51 SOUND EFFECTS TECHNICIAN by Gibran Blanco D.O.
--- NOTE | 2021-09-03 14:10 | PM.IMPN ---
Progress Note: A&P Assessment and Plan (1) Chest pain: Code(s): R07.9 - Chest pain, unspecified Status: Acute Assessment and Plan: New onset today and feels like a stabbing chest pain but not specifically associated with breathing -seems atypical in nature. It is not reproducible and is not worth with cough or big breaths. -EKG shows no sign of ACS. Will place on telemetry and do troponins x3 -chest x-ray does not show any signs of pneumothorax. Will order CTA to rule out PE -aortic aneurysm and other etiologies seems less likely -monitor (2) Pneumonia due to 2019 novel coronavirus: Code(s): U07.1 - COVID-19; J12.82 - Pneumonia due to coronavirus disease 2019 Status: Acute Assessment and Plan: Symptoms and imaging consistent with COVID pneumonia -continue Decadron, Lovenox and baricitinib. Remdesivir is complete. -Symptoms started 08/14/2021, monoclonal antibody infusion 08/23/2021. -CTA shows no PE, this will be repeated -patient is unvaccinated -repeat chest x-ray 09/03 shows stable diffuse disease -continue antibiotics since the patient's oxygen requirements went from 6 L 08/28 to 15 L and her white blood cell count increased. Worrisome for secondary bacterial pneumonia. She has been afebrile. -hypoxia is improving and she is now down to 4L but needs 10+ liters with activity and talking (3) Acute respiratory failure due to COVID-19: Code(s): U07.1 - COVID-19; J96.00 - Acute respiratory failure, unspecified whether with hypoxia or hypercapnia Status: Acute Assessment and Plan: As above (4) Elevated d-dimer: Code(s): R79.89 - Other specified abnormal findings of blood chemistry Status: Acute Assessment and Plan: Likely due to COVID -no PE on CTA on 08/23/21 -continue prophylactic Lovenox -no signs of DVT on exam -CTA ordered due to new chest pain (5) Hypothyroidism: Code(s): E03.9 - Hypothyroidism, unspecified Status: Acute Assessment and Plan: Continue levothyroxine (6) Fluid overload: Code(s): E87.70 - Fluid overload, unspecified Status: Acute Assessment and Plan: Resolved (7) Hyponatremia: Code(s): E87.1 - Hypo-osmolality and hyponatremia Status: Acute Assessment and Plan: 127 on admission and improved to 133 today (8) Back pain: Code(s): M54.9 - Dorsalgia, unspecified Status: Acute Assessment and Plan: No complaints today (9) Headache: Code(s): R51.9 - Headache, unspecified Status: Acute Assessment and Plan: No complaints today, Continue home Imitrex PRN (10) Leukocytosis: Code(s): D72.829 - Elevated white blood cell count, unspecified Status: Acute Assessment and Plan: up mildly today -continue abx for possible secondary PNA (11) Abnormal echocardiogram: Code(s): R93.1 - Abnormal findings on diagnostic imaging of heart and coronary circulation Status: Acute Assessment and Plan: Echo as noted below -she has hypokinesis of the basal inferior septum -appears euvolemic -would recommend aspirin and outpt follow up/work up 1. Complete two-dimensional, color flow and Doppler transthoracic echocardiogram is performed. 2. Normal left ventricular size and thickness with overall good left ventricular contractility and estimated ejection fraction 60-65%. Hypokinesis of the basal inferior septum. Normal diastolic function. 3. Left atrial chamber dimension is mildly enlarged. 4. Mild pulmonary hypertension, estimated pulmonary arterial systolic pressure is 49 mmHg. 5. No significant valve disease. 6. Normal sinus rhythm. Subjective Date/time seen: 09/03/21 14:10 Interval history: Pt is a 66-year-old unvaccinated female here for COVID pneumonia. Patient was seen today and has new complaints of chest pain. She says it feels like
[2021-09-03 15:01] LABS: Troponin I < 0.012 ng/mL (0.000-0.034)
[2021-09-03 17:49] LABS: Troponin I 0.139 ng/mL (0.000-0.034)
[2021-09-03] MEDS: ACETAMINOPHEN 500 MG TABLET 1000 MG PO (18:25)
[2021-09-03] MEDS: SENNOSIDES 8.6 MG TABLET PO (20:10)
[2021-09-03] MEDS: LORazepam (*CRX) 0.5 MG TABLET PO (20:10)
[2021-09-03] MEDS: ENOXAPARIN 80 MG/0.8 ML SYRINGE 75 MG SUB-Q (20:13)
[2021-09-03 21:12] LABS: Troponin I 0.667 ng/mL (0.000-0.034)
[2021-09-04] VITALS (10 sets, daily range): BP systolic 122–128; BP diastolic 57–70; PULSE 64–88; RESP 18; TEMP 36.1–36.6; O2SAT 90–91
[2021-09-04] MEDS: LEVOTHYROXINE SODIUM 88 MCG TABLET PO (05:38)
--- NOTE | 2021-09-04 06:00 | ECG_ITS ---
Measurements Intervals [place] Rate: 80 P: 31 [place]: 147 QRS: 12 QRSD: 85 T: 24 QT: 361 QTc: 418 Interpretive Statements SINUS RHYTHM DELAYED PRECORDIAL R/S TRANSITION CONSIDER INFERIOR INFARCT, AGE INDETERMINATE ABNORMAL ECG Electronically Signed On 09-04-2021 11:42:18 PLASTIC INJECTION MOLD MAKER by Gibran Blanco D.O.
[2021-09-04 06:47] LABS: Basophils Percent Auto 0.2 % (0.2-1.2); Hematocrit 37.7 % (37.0-47.0); Immature Granulocyte Absolute 0.24 K/mm3 (0.00-0.031); Immature Granulocyte Percent A 1.5 % (0-0.5); Lymphocytes Absolute Auto 1.23 K/mm3 (0.9-3.2); Lymphocytes Percent Auto 7.8 % (18.3-44.2); Mean Corpuscular HGB Conc 34.5 g/dl (32-36); Mean Corpuscular Volume 92.9 fl (80-100); Mean Platelet Volume 9.8 fl (7.4-10.4); Monocytes Absolute Auto 0.6 K/mm3 (0.1-0.6); Monocytes Percent Auto 4.1 % (2.6-8.5); Neutrophils Absolute Auto 13.5 K/mm3 (1.3-6.7); Neutrophils Percent Auto 86.4 % (45.5-73.1); Platelet Count Result 389 k/mm3 (150-375); Red Blood Count 4.06 M/mm3 (4.2-5.4); Red Cell Distribution Width 13.8 % (11.5-14.5); White Blood Count 15.7 K/mm3 (4.5-10.0)
[2021-09-04 06:54] LABS: INR 1.1; Prothrombin Time 14.4 Seconds (11.1-14.7)
[2021-09-04 07:23] LABS: Alanine Aminotransferase 28 U/L (4-35); Anion Gap 6 mmol/L (8-16); Aspartate Amino Transferase 42 U/L (14-36); Blood Urea Nitrogen 19 mg/dL (7-17); CRP 1.2 mg/dL (<1.0); Calcium 8.8 mg/dL (8.4-10.2); Carbon Dioxide 20 mmol/L (22-30); Chloride 104 mmol/L (98-107); Estimated CRCL calculation 79 ml/min; Estimated Glomerular Filt Rate > 60; Glucose 146 mg/dL (65-110); Sodium 130 mmol/L (137-145)
[2021-09-04] MEDS: ACETAMINOPHEN 500 MG TABLET 1000 MG PO ×2 (10:10→21:00)
[2021-09-04] MEDS: PANTOPRAZOLE 40 MG TABLET PO (10:11)
[2021-09-04] MEDS: ASPIRIN 81 MG ENTERIC TABLET PO (10:11)
--- NOTE | 2021-09-04 13:41 | PM.CNCAR ---
Assessment and Plan Assessment and plan (1) Chest pain: Code(s): R07.9 - Chest pain, unspecified Status: Acute Assessment and Plan: Related to non ST-elevation myocardial infarction. Now resolved but with significant troponin elevation (2) Abnormal echocardiogram: Code(s): R93.1 - Abnormal findings on diagnostic imaging of heart and coronary circulation Status: Acute Assessment and Plan: With wall motion abnormalities concerning for ischemia (3) Acute respiratory failure due to COVID-19: Code(s): U07.1 - COVID-19; J96.00 - Acute respiratory failure, unspecified whether with hypoxia or hypercapnia Status: Acute Assessment and Plan: Being treated. Continue current meds (4) Hyperlipidemia: Code(s): E78.5 - Hyperlipidemia, unspecified Status: Acute Assessment and Plan: Will start statin (5) Elevated troponin: Code(s): R77.8 - Other specified abnormalities of plasma proteins Status: Acute Assessment and Plan: This appears to be related to a non ST-elevation myocardial infarction. Cannot exclude this being secondary to COVID myocarditis or myopericarditis. Given the wall motion abnormalities though seen on echocardiogram and her significantly elevated troponin, I think it is reasonable to proceed with a coronary angiogram to define her anatomy. She will be kept NPO after midnight for catheterization tomorrow. She verbalized understanding and is agreeable. In the meantime enoxaparin 1 milligram/kilogram q.12 hours will be utilized as well as aspirin 81 mg p.o. daily. Will hold a.m. dose of enoxaparin in preparation for coronary angiogram. Rosuvastatin 10 mg daily will be started. Low-dose metoprolol 12.5 mg p.o. b.i.d. will also be started as well as p.r.n. nitroglycerin for further chest pain. . (6) Pulmonary hypertension: Code(s): I27.20 - Pulmonary hypertension, unspecified Status: Acute Assessment and Plan: Patient has moderate pulmonary hypertension. This is likely secondary to underlying COVID infection at the time but will need followed with repeat echocardiogram as an outpatient. History of Present Illness History of Present Illness Consult date/time: 09/04/21 13:41 Requesting physician: Sonali Sams PA-C Consult reason: chest pain Reason For Visit: COVID Pneumonia with hypoxia, Dehydration Narrative: Reason for consultation: Chest pain, of positive troponin Date of service 09/04 21 Requesting provider: Sonali Sams History:This is a 65 year old female who presents to the ED today with persistent symptoms since diagnosis of COVID-19 on 08/16/2021. She started having symptoms on 08/14/2021. Has been having intermittent fever generalized weakness loss of appetite and body aches. She was hospitalized and has been gradually improving from COVID perspective but yesterday at about 1:30 p.m. she started developed some severe anterior chest pain which she describes as a knife-like sensation. It did not radiate nor was it associated with other symptoms. It lasted for couple of hours and subsided. Her troponins have risen to a level between 4 and 5. Cardiology consultation was requested. She is no longer having any discomfort. She denies any syncope, presyncope, paroxysmal nocturnal dyspnea, orthopnea, edema palpitations. She has no chest pain at home and no significant dyspnea with exertion at home besides related to COVID. She did have an EKG as well as an echocardiogram performed echocardiogram did show wall motion abnormalities. Review of Systems Review of Systems: All systems reviewed & are unremarkable except as noted in HPI and below Constitutional: Constitutional: Denies weakness Eyes: Eyes: Denies blurry vision ENT: Reports Normal hearing present Cardiovascular: Cardiovascular: Reports chest pain Respiratory: Respiratory: Reports dyspnea Gastrointestinal: Gastrointestinal: D
--- NOTE | 2021-09-04 14:35 | PM.IMPN ---
Progress Note: A&P Assessment and Plan (1) Chest pain: Code(s): R07.9 - Chest pain, unspecified Status: Acute Assessment and Plan: Occurred yesterday and was associated with an elevated troponin -seems atypical in nature. It is not reproducible and is not worse with cough or big breaths. -EKG shows no sign of ACS a because of the troponin elevation she was started on Lovenox - CTA without acute findings - cardiology consulted and recommends cardiac catheterization in the morning (2) Pneumonia due to 2019 novel coronavirus: Code(s): U07.1 - COVID-19; J12.82 - Pneumonia due to coronavirus disease 2018 Status: Acute Assessment and Plan: Symptoms and imaging consistent with COVID pneumonia - she has completed Decadron and remdesivir. -Symptoms started 08/14/2021, monoclonal antibody infusion 08/23/2021. -CTA shows no PE X2 -patient is unvaccinated -continue antibiotics for possible secondary bacterial pneumonia. May be able to deescalate if she continues to improve. -hypoxia is improving and she is now down to 2L but needs 10+ liters with activity and talking - Will need home oxygen evaluation closer to discharge (3) Acute respiratory failure due to COVID-19: Code(s): U07.1 - COVID-19; J96.00 - Acute respiratory failure, unspecified whether with hypoxia or hypercapnia Status: Acute Assessment and Plan: As above (4) Elevated d-dimer: Code(s): R79.89 - Other specified abnormal findings of blood chemistry Status: Acute Assessment and Plan: Likely due to COVID -no PE on CTA x2 -continue Lovenox -no signs of DVT on exam (5) Hypothyroidism: Code(s): E03.9 - Hypothyroidism, unspecified Status: Acute Assessment and Plan: Continue levothyroxine (6) Fluid overload: Code(s): E87.70 - Fluid overload, unspecified Status: Acute Assessment and Plan: Resolved (7) Hyponatremia: Code(s): E87.1 - Hypo-osmolality and hyponatremia Status: Acute Assessment and Plan: 127 on admission and improved to 130 today (8) Back pain: Code(s): M54.9 - Dorsalgia, unspecified Status: Acute Assessment and Plan: No complaints today (9) Headache: Code(s): R51.9 - Headache, unspecified Status: Acute Assessment and Plan: No complaints today, Continue home Imitrex PRN (10) Leukocytosis: Code(s): D72.829 - Elevated white blood cell count, unspecified Status: Acute Assessment and Plan: up again today -continue abx for possible secondary PNA - Baricitinib stopped (11) Abnormal echocardiogram: Code(s): R93.1 - Abnormal findings on diagnostic imaging of heart and coronary circulation Status: Acute Assessment and Plan: Echo as noted below -she has hypokinesis of the basal inferior septum -appears euvolemic - continue aspirin - plan for cardiac catheterization as above 1. Complete two-dimensional, color flow and Doppler transthoracic echocardiogram is performed. 2. Normal left ventricular size and thickness with overall good left ventricular contractility and estimated ejection fraction 60-65%. Hypokinesis of the basal inferior septum. Normal diastolic function. 3. Left atrial chamber dimension is mildly enlarged. 4. Mild pulmonary hypertension, estimated pulmonary arterial systolic pressure is 49 mmHg. 5. No significant valve disease. 6. Normal sinus rhythm. Subjective Date/time seen: 09/04/21 14:35 Interval history: Pt is a 66-year-old unvaccinated female here for COVID pneumonia. patient was seen today and is doing well. She has no further chest pain. Her last chest pain was yesterday afternoon she has not had any recurrence. She continues to cough and feels short of breath with activity but feels fine otherwise. She is eating and drinking well. She contin
[2021-09-04] MEDS: ENOXAPARIN 80 MG/0.8 ML SYRINGE 75 MG SUB-Q ×2 (15:06→20:45)
[2021-09-04] MEDS: LORazepam (*CRX) 0.5 MG TABLET PO (18:44)
[2021-09-04] MEDS: FAMOTIDINE 20 MG/2 ML VIAL IV PUSH (20:45)
[2021-09-04] MEDS: METOPROLOL TARTRATE 12.5 MG TABLET PO (20:45)
[2021-09-04] MEDS: SENNOSIDES 8.6 MG TABLET PO (20:45)
[2021-09-05] VITALS (22 sets, daily range): BP systolic 104–137; BP diastolic 53–78; PULSE 64–89; RESP 12–19; TEMP 36.1–36.4; O2SAT 86–97
[2021-09-05] MEDS: LEVOTHYROXINE SODIUM 88 MCG TABLET PO (05:38)
[2021-09-05 06:47] LABS: Basophils Percent Auto 0.1 % (0.2-1.2); Eosinophils Absolute Auto 0.2 K/mm3 (0-0.3); Eosinophils Percent Auto 1.8 % (0-4.4); Hematocrit 37.5 % (37.0-47.0); Hemoglobin 12.7 g/dL (12.0-15.0); Immature Granulocyte Absolute 0.11 K/mm3 (0.00-0.031); Immature Granulocyte Percent A 0.9 % (0-0.5); Lymphocytes Absolute Auto 1.65 K/mm3 (0.9-3.2); Lymphocytes Percent Auto 14.1 % (18.3-44.2); Mean Corpuscular HGB Conc 33.9 g/dl (32-36); Mean Corpuscular Hemoglobin 31.7 pg (26-34); Mean Corpuscular Volume 93.5 fl (80-100); Mean Platelet Volume 9.5 fl (7.4-10.4); Monocytes Absolute Auto 0.7 K/mm3 (0.1-0.6); Monocytes Percent Auto 5.8 % (2.6-8.5); Neutrophils Percent Auto 77.3 % (45.5-73.1); Platelet Count Result 312 k/mm3 (150-375); Red Blood Count 4.01 M/mm3 (4.2-5.4); Red Cell Distribution Width 14.1 % (11.5-14.5); White Blood Count 11.7 K/mm3 (4.5-10.0)
[2021-09-05 06:59] LABS: Alanine Aminotransferase 26 U/L (4-35); Anion Gap 4 mmol/L (8-16); Aspartate Amino Transferase 30 U/L (14-36); Blood Urea Nitrogen 18 mg/dL (7-17); Calcium 8.5 mg/dL (8.4-10.2); Carbon Dioxide 22 mmol/L (22-30); Chloride 105 mmol/L (98-107); Estimated CRCL calculation 79 ml/min; Estimated Glomerular Filt Rate > 60; Glucose 126 mg/dL (65-110); Potassium 3.8 mmol/L (3.4-5.0); Sodium 131 mmol/L (137-145)
--- NOTE | 2021-09-05 07:00 | PM.IMPN ---
Progress Note: A&P Assessment and Plan (1) Chest pain: Code(s): R07.9 - Chest pain, unspecified Status: Acute Assessment and Plan: Occurred 09/03 and was associated with an elevated troponin -seems atypical in nature. It is not reproducible and is not worse with cough or big breaths. -EKG shows no sign of ACS a because of the troponin elevation she was started on Lovenox -echo prior to chest pain did show hypokinesis - CTA without acute findings - cardiology consulted and recommends cardiac catheterization today (2) Pneumonia due to 2019 novel coronavirus: Code(s): U07.1 - COVID-19; J12.82 - Pneumonia due to coronavirus disease 2019 Status: Acute Assessment and Plan: Symptoms and imaging consistent with resolving COVID pneumonia - she has completed Decadron and remdesivir. -Symptoms started 08/14/2021, monoclonal antibody infusion 08/23/2021. -CTA shows no PE X2 -patient is unvaccinated -continue antibiotics for possible secondary bacterial pneumonia (today is day 8, would recommend 10 day total of treatment). -hypoxia is improving and she is now down to 5L but needs 10+ liters with activity and talking - Will need home oxygen evaluation closer to discharge (3) Acute respiratory failure due to COVID-19: Code(s): U07.1 - COVID-19; J96.00 - Acute respiratory failure, unspecified whether with hypoxia or hypercapnia Status: Acute Assessment and Plan: As above (4) Elevated d-dimer: Code(s): R79.89 - Other specified abnormal findings of blood chemistry Status: Acute Assessment and Plan: Likely due to COVID -no PE on CTA x2 -continue Lovenox -no signs of DVT on exam (5) Hypothyroidism: Code(s): E03.9 - Hypothyroidism, unspecified Status: Acute Assessment and Plan: Continue levothyroxine (6) Fluid overload: Code(s): E87.70 - Fluid overload, unspecified Status: Acute Assessment and Plan: Resolved (7) Hyponatremia: Code(s): E87.1 - Hypo-osmolality and hyponatremia Status: Acute Assessment and Plan: 127 on admission and improved to 131 today (8) Back pain: Code(s): M54.9 - Dorsalgia, unspecified Status: Acute Assessment and Plan: Resolved. No complaints today (9) Headache: Code(s): R51.9 - Headache, unspecified Status: Acute Assessment and Plan: Resolved. No complaints today, Continue home Imitrex PRN (10) Leukocytosis: Code(s): D72.829 - Elevated white blood cell count, unspecified Status: Acute Assessment and Plan: Fluctuates but is trending down -continue abx for possible secondary PNA -Baricitinib stopped (11) Abnormal echocardiogram: Code(s): R93.1 - Abnormal findings on diagnostic imaging of heart and coronary circulation Status: Acute Assessment and Plan: Echo as noted below -she has hypokinesis of the basal inferior septum -appears euvolemic - continue aspirin - plan for cardiac catheterization as above 1. Complete two-dimensional, color flow and Doppler transthoracic echocardiogram is performed. 2. Normal left ventricular size and thickness with overall good left ventricular contractility and estimated ejection fraction 60-65%. Hypokinesis of the basal inferior septum. Normal diastolic function. 3. Left atrial chamber dimension is mildly enlarged. 4. Mild pulmonary hypertension, estimated pulmonary arterial systolic pressure is 49 mmHg. 5. No significant valve disease. 6. Normal sinus rhythm. Subjective Date/time seen: 09/05/21 07:00 Interval history: Pt is a 66-year-old unvaccinated female here for COVID pneumonia. patient was seen today and is doing well. She has no further chest pain. On arrival her oxygen was 85% and she did not appear to be in distress. She says that when she notices it is low she puts the
[2021-09-05 07:12] LABS: INR 1.1; Prothrombin Time 13.7 Seconds (11.1-14.7)
[2021-09-05] MEDS: FAMOTIDINE 20 MG/2 ML VIAL IV PUSH ×2 (09:05→21:09)
[2021-09-05] MEDS: ASPIRIN 81 MG ENTERIC TABLET PO (09:05)
[2021-09-05] MEDS: PANTOPRAZOLE 40 MG TABLET PO (09:05)
[2021-09-05] MEDS: METOPROLOL TARTRATE 12.5 MG TABLET PO ×2 (09:05→21:10)
[2021-09-05] MEDS: ROSUVASTATIN 10 MG TABLET PO (09:06)
--- NOTE | 2021-09-05 09:09 | PC.NURSE ---
Spoke with Cyndi JIM in geotechnical laboratory technician regarding morning meds. Lovenox on hold.
--- NOTE | 2021-09-05 09:47 | WPDMODSED ---
Moderate Sedation Note-Pt Data Patient Data Diagnosis: chest pain/ troponin elevation Present Complaint: this is a 66-year-old woman who was hospitalized with coronavirus. During this hospitalization she had an episode of chest pain after which there was a significant rise in troponin level. As result of this angiography has been recommended Procedure to be performed/Plan: left heart catheterization Allergies Allergy/AdvReac Type Severity Reaction Status Date / Time diclofenac [From Voltaren] AdvReac Other Verified 08/23/21 21:20 Home Medications Medication Instructions Recorded Confirmed Type albuterol sulfate 90 mcg INHALATION BID PRN 08/20/21 08/23/21 History levothyroxine [Euthyrox] 88 mcg PO DAILY 08/20/21 08/23/21 History pantoprazole 4 mg PO DAILY 08/20/21 08/23/21 History prednisone 50 mg PO DAILY 08/20/21 08/23/21 History sumatriptan succinate 100 mg PO PRN PRN 08/20/21 08/23/21 History lorazepam [Ativan] 0.5 mg PO HS 08/23/21 08/23/21 History ondansetron HCl [Zofran] 4 mg PO Q6H PRN 08/23/21 08/23/21 History Current Medications: Active Medications Acetaminophen (Acetaminophen 500 Mg Tablet) 1,000 mg PO Q6H PRN PRN Reason: Mild Pain (1-3) or Fever Last Admin: 09/04/21 21:00 Dose: 1,000 mg Documented by: Hydrocodone Bitart/Acetaminophen (Hydrocodone/Acetaminophen (*Crx) 5-325 Mg Tablet) 1 tab PO Q6H PRN PRN Reason: Pain Rated 4-10 Last Admin: 09/03/21 06:36 Dose: 1 tab Documented by: Albuterol (Albuterol Sulfate (*Sp) Inhaler) 2 puff INHALATION BID PRN PRN Reason: Cough Last Admin: 08/29/21 06:47 Dose: 2 puff Documented by: Aspirin (Aspirin 81 Mg Enteric Tablet) 81 mg PO QAM HELEN Last Admin: 09/05/21 09:05 Dose: 81 mg Documented by: Baclofen (Baclofen 5 Mg Tablet) 5 mg PO Q8HR PRN PRN Reason: Muscle/Joint Pain Bisacodyl (Bisacodyl 10 Mg Suppository) 10 mg RECTAL QAM PRN PRN Reason: Constipation Last Admin: 08/31/21 18:26 Dose: 10 mg Documented by: Docusate Sodium (Docusate Sodium 100 Mg Capsule) 100 mg PO Q12H PRN PRN Reason: Constipation Enoxaparin Sodium (Enoxaparin 80 Mg/0.8 Ml Syringe) 75 mg SUB-Q Q12HR [facility] Last Admin: 09/04/21 20:45 Dose: 75 mg Documented by: Famotidine (Famotidine 20 Mg/2 Ml Vial) 20 mg IV PUSH Q12HR [facility] Last Admin: 09/05/21 09:05 Dose: 20 mg Documented by: Cefepime HCl (Maxipime 2 Gm/D5w 50 Ml) 2 gm in 50 mls @ 100 mls/hr IVPB Q8HR [facility] Last Infusion: 09/05/21 06:08 Dose: Infused Documented by: Vancomycin HCl (Vancomycin 1,000 Mg/D5w 250 Ml) 1,000 mg in 250 mls @ 250 mls/hr IVPB Q12H [facility] Last Admin: 09/05/21 08:43 Dose: 250 mls/hr Documented by: Levothyroxine Sodium (Levothyroxine Sodium 88 Mcg Tablet) 88 mcg PO DAILY@0630 [facility] Last Admin: 09/05/21 05:38 Dose: 88 mcg Documented by: Lorazepam (Lorazepam (*Crx) 0.5 Mg Tablet) 0.5 mg PO HS [facility] Last Admin: 09/04/21 18:44 Dose: 0.5 mg Documented by: Metoprolol Tartrate (Metoprolol Tartrate 12.5 Mg Tablet) 12.5 mg PO Q12HR [facility] Last Admin: 09/05/21 09:05 Dose: 12.5 mg Documented by: Ondansetron HCl (Ondansetron Inj 4 Mg/2 Ml Vial) 4 mg IV PUSH Q4H PRN PRN Reason: Nausea Last Admin: 08/30/21 05:09 Dose: 4 mg Documented by: Pantoprazole Sodium (Pantoprazole 40 Mg Tablet) 40 mg PO DAILY [facility] Last Admin: 09/05/21 09:05 Dose: 40 mg Documented by: Polyethylene Glycol (Polyethylene Glycol 3350 17 Gm Powd.Pack) 17 gm PO QAM PRN PRN Reason: Constipation Polyethylene Glycol (Polyethylene Glycol 3350 17 Gm Powd.Pack) 17 gm PO QAM [facility] Last Admin: 09/04/21 10:12 Dose: Not Given Documented by: Rosuvastatin Calcium (Rosuvastatin 10 Mg Tablet) 10 mg PO [facility] Last Admin: 09/05/21 09:06 Dose: 10 mg Documented by: Senna (Sennosides 8.6 Mg Tablet) 8.6 mg PO [facility] Last Admin: 09/04/21 20:45 Dose: 8.6 mg Documented by: Sumatriptan Succinate (Sumatriptan Succinate 25 Mg Tablet) 100 mg PO PRN PRN PRN Reason: Migraine Headache Last Admin: 09/01/21 03:35 Dose: 100 mg Doc
--- NOTE | 2021-09-05 09:52 | PC.NURSE ---
To quality lab assoc via stretcher with labor operator staff.
--- NOTE | 2021-09-05 10:45 | PCPTNOTE ---
The patient treatment was not able to be completed today due to patient out of room for Cardiac procedure. Will plan to continue treatment per plan of care.
--- NOTE | 2021-09-05 10:49 | WPDCARDPROC ---
Cardiac Cath Procedure Note Date of procedure:: 09/05/21 Performing physician:: Hermelindo Gardner MD Indication:: this is a 66-year-old woman who has been hospitalized with coronavirus. Several days ago she had an incident of chest pain after which there was a rise in her troponin level prompting recommendation for angiography Brief clinical history:: as above Procedure Procedure performed:: left ventriculogram coronary angiogram Angio-Seal to right femoral artery Sedation/Medication given:: fentanyl 50 mg Versed 2 mg case start time 10:10 a.m. end time 10:33 a.m. sedation provided by Saniya Valderrama RN, trained observer Access site:: right femoral artery Estimated blood loss:: 20 cc Procedure note:: patient was brought to the cardiac catheterization lab in the postabsorptive state where the right femoral triangle was prepared and draped in the normal fashion. Anesthesia was provided with 1% lidocaine infiltrated locally. Following this the modified Seldinger technique was used to puncture the right common femoral artery and a 5 [place] vascular sheath was placed. After this left heart catheterization was carried out. I used a 5 [place] angled pigtail catheter to measure left-sided hemodynamics and inject the left ventriculogram in the ANNE projection. After this the pigtail catheter was removed. I used a 5 [place] FL4 diagnostic catheter to engage and inject the left coronary artery in multiple projections and after this the right coronary was engaged and injected using a 5 [place] JR4 catheter. The cineangiograms were reviewed and the case was terminated. An angiogram was done of the femoral artery through the sheath after which a 6 [place] Angio-Seal device was deployed with a good hemostatic result. The patient tolerated the procedure well there were no apparent complications and she had no sign of groin hematoma upon leaving the geoscience laboratory technician. Findings:: Hemodynamics: Central aortic pressure was 116/60 left ventricle 116/0 end-diastolic is 8 there was no gradient upon pullback across the aortic valve. Left ventricle: The left ventricle is of normal size. A very small segment at the very apex of the left ventricle is akinetic. The remainder of the LV contracts normally. Ejection fraction is 60-65% by visual estimation. The left main coronary artery is widely patent the left anterior descending is a moderate caliber artery and smooth and free of disease proximally. In the very apical portion of the LAD the vessel becomes extremely tortuous and there are several very small sub branches. One of these small subbranches that takes off in the direction of a distal diagonal it appears to be occluded and fills very late. This is an exceedingly small vessel, less than 1 mm in diameter. The remainder of the LV is angiographically normal. The circumflex is a moderate caliber vessel giving rise to the marginal branches the circumflex is smooth and angiographically normal. The right coronary artery is [id number] caliber dominant to the posterior circulation. The right coronary artery is smooth and angiographically normal. Conclusion:: 1. Coronary artery disease with occlusion of an exceedingly small distal branch of the LAD which has resulted in a small region of apical infarction as described above. There is no other coronary lesion or disease seen angiographically. 2. Tiny region of apical akinesis overall normal ejection fraction and normal hemodynamics. Hermelindo Gardner MD FACC
--- NOTE | 2021-09-05 11:39 | SUR.PHASEII ---
REPORT CALLED TO RAJESH JIM. PT TRANSPORTED BACK TO ROOM 310.
--- NOTE | 2021-09-05 11:56 | PC.NURSE ---
Received patient back from cath lab nurse. Patient alert and awake. Denies pain or discomfort. No distress noted. Right groin site with bandage and tegaderm dry and intact. No swelling, bruising or bleeding noted to site. Patient assisted on and off bedpan and urinated without difficulty. Pedal pulse in right foot strong and regular. Patient to remain on bedrest until 1245. HOB is elevated 30 degrees. Placed back on continuous pulse ox with O2 on at 6 liters and O2 sat at 94%.
[2021-09-05] MEDS: SODIUM CHLORIDE 0.9% IV 1,000 ML 125 ML IV CONT (12:03)
--- NOTE | 2021-09-05 12:06 | PCNFU ---
Nutrition Follow-Up Complete: Increased protein needs related to COVID-19 as evidenced by recommended protein intake of 72 grams per day. Goal: Patient to meet estimated nutritional needs. Patient is progressing towards goal. No new goal at this time. Pt current nutrition is NPO. Last recorded weight is 75 kg. Recommend re-weighing pt. prior to discharge. Bowel Motility: + BM 09/04/2021 (was given Miralax on the ) Labs Reviewed: Na 131, BUN 18, Cr 0.6, Glu 126 Meds Noted: Albuterol, Senna, Bisacodyl, Synthroid, Lovenox, Lopressor, Protonix, Crestor, Vancomycin Hcl Skin: No skin break down at this time. WNL. Additional Notes: Prior to NPO diet order she was on a heart healthy diet eating on average 63%. NPO because she underwent a left ventriculogram coronary angiogram today, 09/05. Monitor pt. labs, medications, weight and oral intake every 5 days.
[2021-09-05] MEDS: polyethylene glycoL 3350 17 GM POWD.PACK PO (14:20)
[2021-09-05] MEDS: LORazepam (*CRX) 0.5 MG TABLET PO (21:09)
[2021-09-05] MEDS: SENNOSIDES 8.6 MG TABLET PO (21:09)
[2021-09-06] VITALS (15 sets, daily range): BP systolic 114–115; BP diastolic 63–67; PULSE 72–107; RESP 18; TEMP 36.6–36.8; O2SAT 87–98
[2021-09-06] MEDS: LEVOTHYROXINE SODIUM 88 MCG TABLET PO (05:50)
[2021-09-06 08:03] LABS: Basophils Percent Auto 0.1 % (0.2-1.2); Eosinophils Absolute Auto 0.2 K/mm3 (0-0.3); Eosinophils Percent Auto 2.3 % (0-4.4); Hematocrit 33.5 % (37.0-47.0); Hemoglobin 11.5 g/dL (12.0-15.0); Immature Granulocyte Absolute 0.06 K/mm3 (0.00-0.031); Immature Granulocyte Percent A 0.7 % (0-0.5); Lymphocytes Absolute Auto 1.01 K/mm3 (0.9-3.2); Lymphocytes Percent Auto 11.8 % (18.3-44.2); Mean Corpuscular HGB Conc 34.3 g/dl (32-36); Mean Corpuscular Hemoglobin 31.9 pg (26-34); Mean Corpuscular Volume 92.8 fl (80-100); Mean Platelet Volume 9.8 fl (7.4-10.4); Monocytes Absolute Auto 0.6 K/mm3 (0.1-0.6); Monocytes Percent Auto 7.5 % (2.6-8.5); Neutrophils Absolute Auto 6.6 K/mm3 (1.3-6.7); Neutrophils Percent Auto 77.6 % (45.5-73.1); Platelet Count Result 260 k/mm3 (150-375); Red Blood Count 3.61 M/mm3 (4.2-5.4); White Blood Count 8.6 K/mm3 (4.5-10.0)
[2021-09-06 08:05] LABS: INR 1.2; Prothrombin Time 14.6 Seconds (11.1-14.7)
[2021-09-06 08:09] LABS: Alanine Aminotransferase 24 U/L (4-35); Anion Gap 8 mmol/L (8-16); Aspartate Amino Transferase 29 U/L (14-36); Blood Urea Nitrogen 12 mg/dL (7-17); CRP 3.4 mg/dL (<1.0); Calcium 8.2 mg/dL (8.4-10.2); Carbon Dioxide 22 mmol/L (22-30); Chloride 103 mmol/L (98-107); Estimated CRCL calculation 79 ml/min; Estimated Glomerular Filt Rate > 60; Glucose 184 mg/dL (65-110); Potassium 3.4 mmol/L (3.4-5.0); Sodium 133 mmol/L (137-145)
[2021-09-06] MEDS: ASPIRIN 81 MG ENTERIC TABLET PO (09:02)
[2021-09-06] MEDS: METOPROLOL TARTRATE 12.5 MG TABLET PO (09:02)
[2021-09-06] MEDS: PANTOPRAZOLE 40 MG TABLET PO (09:03)
[2021-09-06] MEDS: polyethylene glycoL 3350 17 GM POWD.PACK PO (09:03)
[2021-09-06] MEDS: ROSUVASTATIN 10 MG TABLET PO (09:03)
[2021-09-06] MEDS: FAMOTIDINE 20 MG/2 ML VIAL IV PUSH (10:48)
[2021-09-06] MEDS: ACETAMINOPHEN 500 MG TABLET 1000 MG PO (10:53)
--- NOTE | 2021-09-06 11:15 | PM.DS ---
DS: Admitting Diagnosis Discharge Date Date of service 09/06/2021 at 1115 Admitting Diagnosis COVID 19 PNA/NSTEMI DS: Discharge Diagnosis Discharge Diagnosis (1) Chest pain: Code(s): R07.9 - Chest pain, unspecified Status: Acute Assessment and Plan: Occurred 09/03 and was associated with an elevated troponin -seems atypical in nature. It is not reproducible and is not worse with cough or big breaths. -EKG shows no sign of ACS a because of the troponin elevation she was started on Lovenox -echo prior to chest pain did show hypokinesis - CTA without acute findings - cardiology consulted and recommends cardiac catheterization today (2) Pneumonia due to 2019 novel coronavirus: Code(s): U07.1 - COVID-19; J12.82 - Pneumonia due to coronavirus disease 2019 Status: Acute Assessment and Plan: Symptoms and imaging consistent with resolving COVID pneumonia - she has completed Decadron and remdesivir. -Symptoms started 08/14/2021, monoclonal antibody infusion 08/23/2021. -CTA shows no PE X2 -patient is unvaccinated -continue antibiotics for possible secondary bacterial pneumonia (today is day 9, would recommend 10 day total of treatment). -hypoxia is better, she was able to maintain saturations of >90% on Room air - Will need home oxygen evaluation closer to discharge (3) Acute respiratory failure due to COVID-19: Code(s): U07.1 - COVID-19; J96.00 - Acute respiratory failure, unspecified whether with hypoxia or hypercapnia Status: Acute Assessment and Plan: As above (4) Elevated d-dimer: Code(s): R79.89 - Other specified abnormal findings of blood chemistry Status: Acute Assessment and Plan: Likely due to COVID -no PE on CTA x2 -continue Lovenox -no signs of DVT on exam (5) Hypothyroidism: Code(s): E03.9 - Hypothyroidism, unspecified Status: Acute Assessment and Plan: Continue levothyroxine (6) Fluid overload: Code(s): E87.70 - Fluid overload, unspecified Status: Acute Assessment and Plan: Resolved (7) Hyponatremia: Code(s): E87.1 - Hypo-osmolality and hyponatremia Status: Acute Assessment and Plan: 127 on admission and improved to 131 today (8) Back pain: Code(s): M54.9 - Dorsalgia, unspecified Status: Acute Assessment and Plan: Resolved. No complaints today (9) Headache: Code(s): R51.9 - Headache, unspecified Status: Acute Assessment and Plan: Resolved. No complaints today, Continue home Imitrex PRN (10) Leukocytosis: Code(s): D72.829 - Elevated white blood cell count, unspecified Status: Acute Assessment and Plan: Fluctuates but is trending down -continue abx for possible secondary PNA -Baricitinib stopped (11) Abnormal echocardiogram: Code(s): R93.1 - Abnormal findings on diagnostic imaging of heart and coronary circulation Status: Acute Assessment and Plan: Echo as noted below -she has hypokinesis of the basal inferior septum -appears euvolemic - continue aspirin - plan for cardiac catheterization as above 1. Complete two-dimensional, color flow and Doppler transthoracic echocardiogram is performed. 2. Normal left ventricular size and thickness with overall good left ventricular contractility and estimated ejection fraction 60-65%. Hypokinesis of the basal inferior septum. Normal diastolic function. 3. Left atrial chamber dimension is mildly enlarged. 4. Mild pulmonary hypertension, estimated pulmonary arterial systolic pressure is 49 mmHg. 5. No significant valve disease. 6. Normal sinus rhythm. DS: Summary Hospital Course Hospital Course: patient is a 66-year-old female with past medical history of hyperlipidemia, and cholecystectomy who presented to the ED for intermittent fever, generalized weakness, loss of appe
--- NOTE | 2021-09-06 11:49 | PM.PNCARD ---
Progress Note: A&P Assessment and Plan (1) Chest pain: Code(s): R07.9 - Chest pain, unspecified Status: Acute Assessment and Plan: Related to non ST-elevation myocardial infarction. Now resolved but with significant troponin elevation Cardiac catheterization showed small branch of LAD at apex was occluded. Continue aspirin and statin (2) Abnormal echocardiogram: Code(s): R93.1 - Abnormal findings on diagnostic imaging of heart and coronary circulation Status: Acute Assessment and Plan: With wall motion abnormalities concerning for ischemia (3) Acute respiratory failure due to COVID-19: Code(s): U07.1 - COVID-19; J96.00 - Acute respiratory failure, unspecified whether with hypoxia or hypercapnia Status: Acute Assessment and Plan: Being treated. Continue current meds (4) Hyperlipidemia: Code(s): E78.5 - Hyperlipidemia, unspecified Status: Acute Assessment and Plan: Will start statin (5) Elevated troponin: Code(s): R77.8 - Other specified abnormalities of plasma proteins Status: Acute (6) Pulmonary hypertension: Code(s): I27.20 - Pulmonary hypertension, unspecified Status: Acute Assessment and Plan: Patient has moderate pulmonary hypertension. This is likely secondary to underlying COVID infection at the time but will need followed with repeat echocardiogram as an outpatient. WE WILL SIGN OFF. PLEASE CALL US NEEDED Subjective Date/time seen: 09/06/21 11:49 Interval history: Pt is a 66-year-old unvaccinated female here for COVID pneumonia. patient was seen today and is doing well. She has no further chest pain. On arrival her oxygen was 85% and she did not appear to be in distress. She says that when she notices it is low she puts the non-rebreather on. She does not feel short of breath unless she is really moving. She has been sitting up in the chair. She has had no further chest pain since the initial chest pain 2 days ago. Date of service 09/06/2021-her oxygen requirements . She is having no chest pain or pain at the groin site of the cardiac catheterization. No events on telemetry Review of Systems Review of Systems: All systems reviewed & are unremarkable except as noted in HPI and below Constitutional: Constitutional: Denies excessive sweating, Denies headache(s) and Denies weakness Eyes: Eyes: Denies blurry vision ENT: Reports Normal hearing present, Denies headache(s) and Denies neck pain Cardiovascular: Cardiovascular: Reports chest pain and Reports dyspnea Respiratory: Respiratory: Reports dyspnea Gastrointestinal: Gastrointestinal: Denies abdominal pain Genitourinary: Genitourinary: Denies flank pain Musculoskeletal: Musculoskeletal: Denies neck pain Integumentary/Breasts: Skin/Breast: Denies dry skin Neurologic: Reports Normal hearing present, Denies headache(s) and Denies weakness Psychiatric: Psychiatric: Denies anxiety Endocrine: Endocrine: Denies excessive sweating Hematologic/Lymphatic: Hematologic/Lymphatic: Denies easy bleeding Allergic/Immunologic: Allergic/Immunologic: Denies GI upset with certain foods Exam Narrative: Awake alert. Appears stated age Const: General: comfortable and no acute distress HENMT: General nose exam: Normal nares present Eyes: Sclera: sclerae normal Neck: Neck: supple and no JVD Chest: Other: No reproducible chest wall pain to palpation Resp: Auscultation: diminished lung sounds Cardio: Rate: regular rate Rhythm: regular rhythm Heart sounds: no murmurs GI: Auscultation: normal bowel sounds Skin: General skin exam: normal color Neuro: Cranial nerves: Yes Normal hearing present Cognition (Neuro): normal cognition Speech: normal speech Extrem: General: normal to inspection and no edema Psych: Mental Status: mental status grossly normal Objective Data Vital Signs Vital Signs: Vital Signs - 24 hr 09/05/21
--- NOTE | 2021-09-06 12:15 | PC.NURSE ---
Iv vancomycin delayed this AM due to no IV access.
--- NOTE | 2021-09-06 15:27 | HOMEO2EVAL ---
Evaluation was performed at [facility] Home Oxygen Evaluation RC: Home Oxygen (O2) Evaluation Start: 09/06/21 14:47 Freq: ONCE Status: Active Protocol: RPE Activity Type Activity Date Activity User E-Sign Co-Sign Detail Recorded Client Recorded Date Recorded By Document 09/06/21 15:00 [email or web address] [email or web address] 09/06/21 15:27 JIMMY Document 09/06/21 15:03 JIMMY [email or web address] 09/06/21 15:27 JIMMY Document 09/06/21 15:04 JIMMY [email or web address] 09/06/21 15:27 JIMMY Document 09/06/21 15:05 JIMMY [email or web address] 09/06/21 15:27 JIMMY Document 09/06/21 15:15 JIMMY [email or web address] 09/06/21 15:27 JIMMY 09/06/21 09/06/21 09/06/21 15:00 15:03 15:04 Home O2 Evaluation Test Phase Resting Exercise Exercise Oxygen Delivery Room Air Room Air Nasal Cannula Oxygen Flow Rate (L/min) 1 Pulse Oximetry (90-100 %) 92 87 L 87 L Home Oxygen Evaluation Comments Treatment Charges O2 Evaluation - Inpatient 09/06/21 09/06/21 15:05 15:15 Home O2 Evaluation Test Phase Exercise Resting Oxygen Delivery Nasal Cannula Room Air Oxygen Flow Rate (L/min) 2 Pulse Oximetry (90-100 %) 91 91 Home Oxygen Evaluation Comments Home O2 required at 2 liters with activity/ exertion Treatment Charges
--- NOTE | 2021-09-06 15:29 | PCRCNOTE ---
Home O2 eval done. Set up with [facility]. Nadira is contact # is . She will bring in a tank for transport home.
== END 2021-09-06 18:15 | disposition home or self-care (01) | DRG 177 ==
LOC: ANHED 19:32 → ANH3MEDSUR 20:31
PROVIDERS: Nurse Practitioner; Specialist; Admitting Provider Internal Medicine; Emergency Provider General Practice; PCP Hospitalist; Visit Provider Physician Assistant
PROC: 4A023N7 Measurement of Cardiac Sampling and Pressure, Left Heart, Percutaneous Approach (ICD-10-PCS; CPT 93452; principal; 2021-09-05 10:00)
PROC: 4A023N7 Measurement of Cardiac Sampling and Pressure, Left Heart, Percutaneous Approach (ICD-10-PCS; 2021-09-05 10:00)
DX: U07.1 COVID-19 (principal); J12.82 Pneumonia due to coronavirus disease 2019; J96.01 Acute respiratory failure with hypoxia; I21.3 ST elevation (STEMI) myocardial infarction of unspecified site; J15.9 Unspecified bacterial pneumonia; E87.1 Hypo-osmolality and hyponatremia; I27.20 Pulmonary hypertension, unspecified; I25.10 Atherosclerotic heart disease of native coronary artery without angina pectoris; E86.0 Dehydration; R79.89 Other specified abnormal findings of blood chemistry; E78.5 Hyperlipidemia, unspecified; E03.9 Hypothyroidism, unspecified; G43.909 Migraine, unspecified, not intractable, without status migrainosus; D72.829 Elevated white blood cell count, unspecified; R77.8 Other specified abnormalities of plasma proteins; R93.1 Abnormal findings on diagnostic imaging of heart and coronary circulation; E87.70 Fluid overload, unspecified; K59.00 Constipation, unspecified; M54.9 Dorsalgia, unspecified; Z79.899 Other long term (current) drug therapy
CPT/HCPCS: 36415; 36600; 71045; 71275; 80048; 80053; 80061; 80076; 80202; 81003; 82375; 82565; 82728; 82805; 83036; 83050; 83605; 83615; 83735; 83880; 84300; 84443; 84450; 84460; 84484; 85025; 85380; 85610; 85730; 86140; 87040; 87070; 87205; 93005; 93306; 93458; 93926; 94618; 96361; 96365; 96372; 96375; 96376; 97110; 97116; 97161; 97165; 97530; 97535; 99285; A9270; C1760; C1887; C1894; G0269; G0378; J0131; J0692; J1100; J1644; J1650; J1940; J2250; J2405; J3010; J3370; J7030; J7040; M0243; Q0244; Q9967

== ENCOUNTER 2021-12-06 09:32 | Outpatient (CLI) | payer MEDICARE, SELFPAY ==
--- NOTE | ~2021-12-06 | MM_ITS ---
EXAMINATION: MM screening kel BI w ekaterina HISTORY: Screening mammogram, family history of breast cancer in her mother. TECHNIQUE: Craniocaudal and mediolateral oblique 3-D tomosynthesis images were obtained and synthetic 2-D images were generated. CAD analysis was submitted and interpreted. COMPARISON: No prior mammogram is available for comparison at this institution. BREAST PARENCHYMAL COMPOSITION: There are scattered areas of fibroglandular density. FINDINGS: There is no suspicious mass, calcification, or architectural distortion to suggest malignan cy in either breast. IMPRESSION: 1. No mammographic evidence of malignancy. 2. Recommend routine screening mammography in one year. BI-RADS Category 1: Negative Reviewed, dictated and finalized at location A.
== END 2021-12-06 09:33 | disposition home or self-care (01) ==
PROVIDERS: PCP Hospitalist; Visit Provider Hospitalist
DX: Z12.31 Encounter for screening mammogram for malignant neoplasm of breast (principal)
CPT/HCPCS: 77063; 77067

== ENCOUNTER 2022-07-11 11:58 | Outpatient (CLI) | payer MEDICARE, SELFPAY ==
--- NOTE | ~2022-07-11 | DEXA_ITS ---
Bone Density Report Name: JAYLEN DAMON Age: 66 Sex: Female Ethnicity: White Date of : 1955 Indication: postmenopausal; screening for osteoporosis; height loss; Referring Provider: ALEXIASOFIA Study: Bone densitometry was performed. Exam Date: July 11, 2022 Accession number: [id number] Bone Density: Region BMD T-score Z-score Classification AP Spine(L1-L4) 1.073 0.2 2.1 Normal Femoral Neck (Left) 0.679 -1.5 0.0 Osteopenia Total Hip (Left) 0.840 -0.8 0.4 Normal Femoral Neck (Right) 0.695 -1.4 0.2 Osteopenia Total Hip (Right) 0.872 -0.6 0.7 Normal Total Hip Mean 0.856 -0.7 0.6 Normal World Health Organization criteria for BMD impression classify patients as: Normal (T-score at or above -1.0), Osteopenia (T-score between -1.0 and -2.5), or Osteoporosis (T-score at or below -2.5). 10-year Fracture Risk(1): Major Osteoporotic Fracture 8.8% Hip Fracture 1.0% Reported Risk Factors: [place] (), Neck BMD=0.679, BMI=30.3 (1) FRAX(R) Version 3.08. Fracture probability calculated for an untreated patient. Fracture probability may be lower if the patient has received treatment. Clinical Information Provided by Patient: Patient maximum height was 64 Menopause Age: 56 Drinks caffeinated beverages Onset of menses at age 16 Number of children 2 Impression: The patient has low bone mass, based on the Left Femoral Neck T-score. The patient has an estimated ten-year risk of hip fracture of 1% and an estimated ten-year risk of major fracture of 8.8%, based on the WHO FRAX algorithm. Discussion: BONE DENSITY IS LOW AT ONE OR MORE SKELETAL SITES. This patient's lowest T-score is low at one or more skeletal sites. It meets the World Health Organization's (WHO) criteria for ?low bone mass? (T-score between -1.0 and -2.5). The patient's 10-year risk of fracture as calculated by FRAX is less than the threshold where pharmacological therapy is recommended by the National Osteoporosis Foundation (NOF). However, all treatment decisions require clinical judgment and consideration of individual patient factors, including patient preferences, comorbidities, previous drug use, risk factors not captured in the FRAX model (e.g., frailty, falls, vitamin D deficiency, increased bone turnover, interval significant decline in bone density) and possible under or overestimation of fracture risk by FRAX. The patient should follow a healthful lifestyle (good nutrition with adequate calcium and vitamin D, and appropriate weight-bearing exercise). Follow-Up: Consider repeating this study in 2 to 3 years to reassess this patient's status, or sooner if there is some new clinical indication. Reported by: FERNANDO on 07/11/2022 12:25:00 PM. R
== END 2022-07-11 11:59 | disposition home or self-care (01) ==
PROVIDERS: PCP Hospitalist; Visit Provider Hospitalist
DX: R93.7 Abnormal findings on diagnostic imaging of other parts of musculoskeletal system (principal); M81.0 Age-related osteoporosis without current pathological fracture; M85.852 Other specified disorders of bone density and structure, left thigh; M85.851 Other specified disorders of bone density and structure, right thigh
CPT/HCPCS: 77080

== ENCOUNTER 2022-08-20 12:01 | Emergency (ER) | payer MEDICARE, SELFPAY ==
--- NOTE | ~2022-08-20 | CT_ITS ---
EXAMINATION: CT abdomen pelvis w con DATE: 08/20/2022 17:36 INDICATION: abdominal pain TECHNIQUE: Computed tomography (CT) of the abdomen and pelvis was performed with 100 mL Omnipaque-350 intravenous contrast. Automated exposure control and iterative reconstruction technique were employe d. The dose-length product was 696.64 mGy-cm. COMPARISON: [facility] 09/03/2021 and 08/23/2021. FINDINGS: Lower thorax: Bibasilar scar. Fibrotic change in the dependent right lower lung. Small hiatal hernia. Liver: Normal. Biliary/Gallbladder: Gallbladder is absent. No bile duct dilation. Pancreas: No mass or duct dilation. Spleen: Normal. Adrenals:No mass. Kidneys: No mass, stone, or hydronephrosis. GI tract: No small or large bowel dilation. Normal appendix. Mesentery/Peritoneum: No ascites, mass, or free air. Retroperitoneum: No mass. Pelvis: Pelvic organs are within normal limits. Soft Tissues: Soft tissues and body wall unremarkable. Bones: No acute osseous finding. IMPRESSION: No acute abdominopelvic process detected. Reviewed, dictated and finalized at location K. INE REPAIRER
[2022-08-20 12:09] VITALS: BP 117/62; PULSE 99; RESP 20; TEMP 37.8; O2SAT 97
[2022-08-20 12:36] LABS: Basophils Percent Auto 0.3 % (0.2-1.2); Eosinophils Percent Auto 0.3 % (0-4.4); Hemoglobin 14.2 g/dL (12.0-15.0); Immature Granulocyte Absolute 0.01 K/mm3 (0.00-0.031); Immature Granulocyte Percent A 0.1 % (0-0.5); Lymphocytes Absolute Auto 0.89 K/mm3 (0.9-3.2); Mean Corpuscular HGB Conc 34.6 g/dl (32-36); Mean Corpuscular Hemoglobin 32.5 pg (26-34); Mean Corpuscular Volume 93.8 fl (80-100); Mean Platelet Volume 9.8 fl (7.4-10.4); Monocytes Absolute Auto 0.4 K/mm3 (0.1-0.6); Monocytes Percent Auto 4.3 % (2.6-8.5); Neutrophils Absolute Auto 7.6 K/mm3 (1.3-6.7); Nucleated Red Blood Cells Perc 0.2 % (0.0-0.2); Platelet Count Result 304 k/mm3 (150-375); Red Blood Count 4.37 M/mm3 (4.2-5.4); Red Cell Distribution Width 13.7 % (11.5-14.5); White Blood Count 8.9 K/mm3 (4.5-10.0)
[2022-08-20 12:40] LABS: Alanine Aminotransferase 52 U/L (6-35); Albumin Level 4.2 g/dL (3.5-5.1); Alkaline Phosphatase 102 U/L (38-126); Anion Gap 5 mmol/L (8-16); Aspartate Amino Transferase 80 U/L (14-36); Bilirubin,Total 0.7 mg/dL (0.2-1.3); Blood Urea Nitrogen 18 mg/dL (7-17); Calcium 8.4 mg/dL (8.4-10.2); Carbon Dioxide 26 mmol/L (22-30); Chloride 99 mmol/L (98-107); Estimated CRCL calculation 60 ml/min; Estimated Glomerular Filt Rate > 60; Glucose 126 mg/dL (65-110); Lipase 66 U/L (23-300); Sodium 130 mmol/L (137-145)
[2022-08-20 13:06] LABS: Influenza A QL RT-PCR Negative (Negative); Influenza B QL RT-PCR Negative (Negative); SARS-CoV-2 RNA PCR Negative
[2022-08-20 14:15] LABS: Add Urine Microscopic? NO; Appearance Urine Clear (Clear); Bilirubin Urine Negative (Negative); Blood Urine Negative (Negative); Color Urine Light Yellow (Yellow); Glucose Urine UA Negative (Negative); Ketones Urine Negative (Negative); Leukocyte Esterase Ur Negative LEU/UL (Negative); Nitrate Urine Negative (Negative); Protein Urine Negative (Negative); Urobilinogen Urine 0.2 mg/dL (<2.0); pH Urine 5.5 (5.0-9.0)
--- NOTE | 2022-08-20 16:25 | ED.GENADULT ---
HPI - General Adult General Chief complaint: Abdominal Pain Stated complaint: abdominal pain with fever Time Seen by Provider: 08/20/22 16:11 History of Present Illness HPI narrative: 66-year-old female with history of cholecystectomy in 2014 presented to the emergency department for evaluation of upper abdominal pain that started yesterday. Patient states that the pain started approximately 1130 last night. Patient did have some associated nausea and vomiting. Patient states that the pain has since resolved. Patient denies any associated chest pain or shortness of breath. Patient does have prior history of high cholesterol, hypothyroidism. Related Data Home Medications Medication Instructions Recorded Confirmed albuterol sulfate 90 mcg/actuation 90 mcg inhalation BID PRN Cough 08/20/21 08/23/21 aerosol inhaler levothyroxine 88 mcg tablet 88 mcg PO DAILY 08/20/21 08/23/21 (Euthyrox) pantoprazole 40 mg tablet,delayed 4 mg PO DAILY 08/20/21 08/23/21 release prednisone 50 mg tablet 50 mg PO DAILY 08/20/21 08/23/21 sumatriptan succinate 100 mg tablet 100 mg PO PRN PRN Migraine Headache 08/20/21 08/23/21 lorazepam 0.5 mg tablet (Ativan) 0.5 mg PO HS 08/23/21 08/23/21 ondansetron HCl 4 mg tablet 4 mg PO Q6H PRN Nausea 08/23/21 08/23/21 (Zofran) Allergies Allergy/AdvReac Type Severity Reaction Status Date / Time diclofenac [From Voltaren] AdvReac Other Verified 08/20/22 16:11 Review of Systems Review of Systems: CONSTITUTIONAL: Denies fever, chills, or sweats. EYES: Denies visual changes, redness, or discharge. ENT: Denies rhinorrhea, congestion, sore throat, or otalgia. CARDIOVASCULAR: Denies chest pain, palpitations, or edema. RESPIRATORY: Denies cough or dyspnea. GASTROINTESTINAL: See HPI GENITOURINARY: Denies dysuria or hematuria. SKIN: Denies rash or itching. MUSCULOSKELETAL: Denies back pain, joint pain, or myalgia. NEUROLOGIC: Denies headache, numbness, or weakness. PSYCHIATRIC: Denies anxiety or depression. [facility] Past Medical History Medical History Hyperlipidemia Migraine headache Surgical History Surgical History Hx of cholecystectomy Social History Social History Smoking status: Never smoker Second hand tobacco smoke exposure: Yes (Father smoked) Alcohol intake: never Substance use: never Gender identity (if verbalized by the patient): Female Spiritual care concerns: No Exam Narrative: APPEARANCE: Well appearing, no pain, no distress, well-nourished. HEAD: normocephalic, atraumatic. EYES: PERRLA/EOMI, conjunctivae clear. NOSE: Normal no drainage EARS:TMS clear with good light reflex. THROAT: Pharynx clear, no exudate. NECK: Supple. No adenopathy, no masses. RESPIRATORY: Airway patent, respirations nonlabored. Clear to auscultation bilaterally, no rales, rhonchi, wheezing. CARDIOVASCULAR: Regular rate and rhythm without murmurs rubs or gallops. ABDOMINAL: No abdominal tenderness to palpation. MUSCULOSKELETAL: Moves all extremities. Strength/ROM intact, No edema, No calf tenderness. NEURO: Alert. Cranial nerves II through XII intact. Grossly intact SKIN: Warm, dry. Normal Color Course Course Emergency Course: Patient is afebrile with no leukocytosis. Patient does have minor elevation of her liver enzymes but has also had elevated transaminases previously. Patient's T bili and alk phos are within normal limits. Patient's UA shows no evidence of urinary tract infection and patient is negative for COVID and flu. Patient's CT scan showed no no acute abdominal pelvic processes. Patient was updated the results of her work-up and continues to feel improved. Patient denies any pain at this time. Patient no longer has a gallbladder. Patient was updated on the results of her work-up and was encouraged of close foll
[2022-08-20] MEDS: ONDANSETRON INJ 4 MG/2 ML VIAL IV PUSH (18:24)
[2022-08-20 18:29] VITALS: BP 120/62; PULSE 80; RESP 20; TEMP 36.8; O2SAT 99
== END 2022-08-20 18:30 | disposition home or self-care (01) ==
PROVIDERS: Emergency Provider Emergency Medicine; PCP Hospitalist
DX: R10.10 Upper abdominal pain, unspecified (principal); Z20.822 Contact with and (suspected) exposure to COVID-19; E78.5 Hyperlipidemia, unspecified
CPT/HCPCS: 36415; 74177; 80053; 81003; 83690; 85025; 87636; 96374; 99284; J2405; Q9967

== ENCOUNTER 2022-09-11 15:18 | Emergency (ER) | payer MEDICARE, SELFPAY ==
--- NOTE | 2022-09-11 15:21 | ED.ABDPAIN ---
HPI - Abdominal Pain General Chief Complaint: Urogenital-Female Stated Complaint: Abdominal Pain Time Seen by Provider: 09/11/22 15:44 Source: patient and RN notes reviewed Mode of arrival: ambulatory Limitations: no limitations History of Present Illness HPI narrative: 67-year-old female presents with concern for suprapubic pressure that radiates to the right abdomen toward the back that started today. She denies aggravating or relieving factors. Reports it is a dull pressure. She denies nausea, vomiting. Reports normal bowel movements. She denies fever, chills, sweats, body aches. Denies dysuria, frequency, urgency. She denies abnormal vaginal discharge MD elicited complaint: other (Suprapubic pressure) Related Data Home Medications Medication Instructions Recorded Confirmed albuterol sulfate 90 mcg/actuation 90 mcg inhalation BID PRN Cough 08/20/21 09/11/22 aerosol inhaler levothyroxine 88 mcg tablet 88 mcg PO DAILY 08/20/21 09/11/22 (Euthyrox) pantoprazole 40 mg tablet,delayed 4 mg PO DAILY 08/20/21 09/11/22 release sumatriptan succinate 100 mg tablet 100 mg PO PRN PRN Migraine Headache 08/20/21 09/11/22 lorazepam 0.5 mg tablet (Ativan) 0.5 mg PO HS 08/23/21 09/11/22 Allergies Allergy/AdvReac Type Severity Reaction Status Date / Time diclofenac [From Voltaren] AdvReac Other Verified 09/11/22 15:29 Review of Systems Review of Systems: CONSTITUTIONAL: Denies malaise, chills, sweats, or fever. ENT: Denies rhinorrhea, congestion, sinus pain, otalgia or sore throat. CARDIOVASCULAR: Denies chest pain, palpitations, or edema. RESPIRATORY: Denies cough or dyspnea. GASTROINTESTINAL: Denies abdominal pain, nausea, vomiting, diarrhea, bloody, or mucous stools. Reports suprapubic pressure GENITOURINARY: Denies dysuria or hematuria. MUSCULOSKELETAL: Denies myalgia. NEUROLOGIC: Denies headache. All systems reviewed & are unremarkable except as noted in HPI and below PMFSH Past Medical History Medical History Hyperlipidemia Migraine headache Surgical History Surgical History Hx of cholecystectomy Social History Social History Smoking status: Never smoker Second hand tobacco smoke exposure: Yes (Father smoked) Alcohol intake: never Substance use: never Gender identity (if verbalized by the patient): Female Spiritual care concerns: No Comments At time of signature, agree with nursing past medical, surgical, social and family history. There is no relevant family history pertinent to the presenting complaint Exam Narrative: GENERAL: Well-appearing, well-nourished, and in no acute distress. HEAD: Normocephalic. EYES: PERRLA, conjunctivae clear. NECK: Supple. No lymphadenopathy CHEST: Clear to auscultation. No respiratory distress. HEART: Regular rate and rhythm. ABDOMEN: Soft, nontender upon palpation, nondistended, normal active bowel sounds, no palpable or pulsatile masses, no guarding. No CVA tenderness SKIN: Warm, dry, no rash. NEURO: Alert and oriented x3. PSYCH: Normal mood and affect Course Course Emergency Course: Patient is aware of diagnosis, understands and agrees to treatment plan. Anticipatory guidance given. Patient agrees to follow-up as directed and is aware of reasons to seek care at the emergency department. Portions of this record may have been created with voice recognition software Level of Care: Express Care Visit Vital Signs Vital signs: Reviewed. MDM - Abdominal Pain MDM Narrative Medical decision making narrative: Exam findings and UA show no acute concerns or changes; patient is non-toxic appearing and is in no distress. Patient is appropriate for outpatient treatment and follow-up. Differential Diagnosis Differential diagnosis: Likely abdominal pain, acute appendicitis, constipation a
[2022-09-11 15:29] VITALS: BP 133/74; PULSE 73; RESP 16; TEMP 36.2; O2SAT 97
== END 2022-09-11 15:55 | disposition home or self-care (01) ==
PROVIDERS: Emergency Provider Nurse Practitioner; PCP Hospitalist
DX: R10.30 Lower abdominal pain, unspecified (principal); E78.5 Hyperlipidemia, unspecified
CPT/HCPCS: 81003; 87086; 99213; G0463

== ENCOUNTER 2022-11-15 10:30 | Emergency (ER) | payer MEDICARE, SELFPAY ==
--- NOTE | ~2022-11-15 | XR_ITS ---
Left Knee Technique: AP, lateral, notch, and sunrise views were obtained. Clinical History: Pain Findings: No fracture or dislocation is seen. Moderate degenerative change of the patellofemoral comp artment noted. There is mild degenerative change of the medial and lateral compartments. Soft tissues are unremarkable. No joint effusion is seen. 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 Reviewed, dictated and finalized at location M. 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
[2022-11-15 10:43] VITALS: BP 116/71; PULSE 80; RESP 18; TEMP 36.1; O2SAT 96
[2022-11-15 10:45] VITALS: BP 116/71; PULSE 80; RESP 18; TEMP 36.1; O2SAT 96
--- NOTE | 2022-11-15 11:05 | ED.EXTPRO ---
HPI - Extremity Problem General Chief complaint: Extremity Problem,Nontraumatic Stated complaint: lt knee pain Time Seen by Provider: 11/15/22 11:05 Source: patient, RN notes reviewed and old records reviewed Mode of arrival: ambulatory Limitations: no limitations History of Present Illness HPI Narrative: 67-year-old female presents to the [facility] with complaints of left knee pain since waking up yesterday morning. Patient reports that that after walking around Skin Scan her knee became more painful. no treatment prior to arrival Onset (ago): day(s) (1) Related Data Home Medications Medication Instructions Recorded Confirmed albuterol sulfate 90 mcg/actuation 90 mcg inhalation BID PRN Cough 08/20/21 11/15/22 aerosol inhaler levothyroxine 88 mcg tablet 88 mcg PO DAILY 08/20/21 11/15/22 (Euthyrox) pantoprazole 40 mg tablet,delayed 4 mg PO DAILY 08/20/21 11/15/22 release lorazepam 0.5 mg tablet (Ativan) 0.5 mg PO HS PRN Anxiety 08/23/21 11/15/22 bempedoic acid 180 mg-ezetimibe 10 1 tablet PO DAILY 11/15/22 11/15/22 mg tablet (Nexlizet) sumatriptan succinate 100 mg tablet 100 mg PO PRN PRN Migraine Headache 11/15/22 11/15/22 Allergies Allergy/AdvReac Type Severity Reaction Status Date / Time diclofenac [From Voltaren] AdvReac Other Verified 11/15/22 10:41 Review of Systems Review of Systems: All systems reviewed & are unremarkable except as noted in HPI and below Constitutional: Constitutional: Reports no additional constitutional complaints Eyes: Eyes: Reports no additional eye complaints ENT: Reports system reviewed and no additional complaints, except as documented Cardiovascular: Cardiovascular: Reports no additional cardiovascular complaints, Denies chest pain and Denies dyspnea Respiratory: Respiratory: Reports no additional respiratory complaints, Denies chest congestion, Denies cough and Denies dyspnea Gastrointestinal: Gastrointestinal: Reports no additional gastrointestinal complaints, Denies abdominal pain, Denies nausea and Denies vomiting Musculoskeletal: Musculoskeletal: Reports as per HPI, Reports arthralgias ( left knee) and Denies joint swelling Integumentary/Breasts: Skin/Breast: Reports system reviewed and no additional complaints, except as docu Neurologic: Reports system reviewed and no additional complaints, except as documented Psychiatric: Psychiatric: Reports no additional psychiatric complaints Allergic/Immunologic: Allergic/Immunologic: Reports no additional allergic/immunologic complaints PMFSH Past Medical History Medical History Hyperlipidemia Migraine headache Surgical History Surgical History Hx of cholecystectomy Social History Social History Smoking status: Never smoker Second hand tobacco smoke exposure: Yes (Father smoked) Alcohol intake: never Substance use: never Gender identity (if verbalized by the patient): Female Spiritual care concerns: No Comments At the time of my signature, I reviewed and agree with the nursing past medical, surgical, social, and family history. There is no relevant family history pertinent to the patient complaint. Exam Const: General: cooperative, healthy appearing, comfortable, no acute distress, well developed, alert and well nourished Nutritional Appearance: well nourished Orientation/consciousness: patient oriented x3 Limitations: no limitations HENMT: Head: normal to inspection Ears: hearing grossly normal bilaterally and external ears normal Face/Nose/Sinus: Normal external nose present, Normal nares present, Normal nasal mucous membranes and turbinates present and normal facial exam Face and sinus: normal facial exam Mouth: Yes Normal oral and palatal mucosa present, Yes lip normal and Yes moist mucous membranes Eyes: General: appearan
== END 2022-11-15 11:40 | disposition home or self-care (01) ==
PROVIDERS: Emergency Provider Nurse Practitioner; PCP Family Medicine
DX: M17.12 Unilateral primary osteoarthritis, left knee (principal); E78.5 Hyperlipidemia, unspecified
CPT/HCPCS: 73564; 99213; G0463

== ENCOUNTER 2023-02-10 18:12 | Emergency (ER) | payer MEDICARE, SELFPAY ==
--- NOTE | ~2023-02-10 | XR_ITS ---
EXAMINATION: XR chest 2V DATE: 02/10/2023 18:40 INDICATION: Heart palpitations TECHNIQUE: PA and lateral views of the chest are obtained. COMPARISON: 09/03/2021 FINDINGS: The lungs are free of acute opacities. No pleural effusion or pneumothorax. The cardiomedia stinal silhouette is normal. There is mild thoracic spondylosis. Surgical clips in the right upper qu adrant are likely from prior cholecystectomy. IMPRESSION: 1. No acute cardiopulmonary abnormality. Reviewed, dictated and finalized at location F.
--- NOTE | 2023-02-10 18:13 | ECG_ITS ---
Measurements Intervals Mck[place] Rate: 87 P: 43 RI: 162 QRS: 7 QRSD: 86 T: 31 QT: 356 QTc: 428 Interpretive Statements SINUS RHYTHM WITH OCCASIONAL ECTOPIC PREMATURE COMPLEXES LOW QRS VOLTAGE IN PRECORDIAL LEADS [QRS DEFLECTION < 1.0 mV IN CHEST LEADS] COMPARED TO ECG 09/04/2021 10:31:32 NO SIGNIFICANT CHANGES Electronically Signed On 02-11-2023 14:08:50 CDT by Lars Loyola M.D.
[2023-02-10 18:23] VITALS: BP 141/73; PULSE 86; RESP 18; TEMP 36.7; O2SAT 97
[2023-02-10 18:30] LABS: Basophils Absolute Auto 0.1 K/mm3 (0.0-0.1); Basophils Percent Auto 0.6 % (0.2-1.2); Eosinophils Absolute Auto 0.3 K/mm3 (0-0.3); Eosinophils Percent Auto 3.5 % (0-4.4); Hematocrit 39.3 % (37.0-47.0); Hemoglobin 13.9 g/dL (12.0-15.0); Immature Granulocyte Absolute 0.02 K/mm3 (0.00-0.031); Immature Granulocyte Percent A 0.2 % (0-0.5); Lymphocytes Absolute Auto 2.93 K/mm3 (0.9-3.2); Lymphocytes Percent Auto 32.8 % (18.3-44.2); Mean Corpuscular HGB Conc 35.4 g/dl (32-36); Mean Corpuscular Hemoglobin 33.2 pg (26-34); Mean Corpuscular Volume 93.8 fl (80-100); Mean Platelet Volume 9.3 fl (7.4-10.4); Monocytes Absolute Auto 0.6 K/mm3 (0.1-0.6); Monocytes Percent Auto 7.1 % (2.6-8.5); Neutrophils Percent Auto 55.8 % (45.5-73.1); Platelet Count Result 275 k/mm3 (150-375); Red Blood Count 4.19 M/mm3 (4.2-5.4); Red Cell Distribution Width 13.4 % (11.5-14.5); White Blood Count 8.9 K/mm3 (4.5-10.0)
[2023-02-10 18:42] LABS: INR 0.9; Partial Thromboplastin Time 26.1 SECONDS (22.3-36.8); Prothrombin Time 12.7 Seconds (11.1-14.7)
[2023-02-10 18:48] LABS: Alanine Aminotransferase 21 U/L (6-35); Albumin Level 4.1 g/dL (3.5-5.1); Alkaline Phosphatase 76 U/L (38-126); Anion Gap 6 mmol/L (8-16); Aspartate Amino Transferase 27 U/L (14-36); Bilirubin,Total 0.5 mg/dL (0.2-1.3); Blood Urea Nitrogen 16 mg/dL (7-17); Calcium 8.7 mg/dL (8.4-10.2); Carbon Dioxide 26 mmol/L (22-30); Chloride 99 mmol/L (98-107); Estimated CRCL calculation 57 ml/min; Estimated Glomerular Filt Rate > 60; Glucose 180 mg/dL (65-110); Potassium 3.7 mmol/L (3.4-5.0); Sodium 131 mmol/L (137-145)
[2023-02-10 18:53] LABS: Troponin I < 0.012 ng/mL (0.000-0.034)
[2023-02-10 19:51] VITALS: BP 154/80; PULSE 89; RESP 15; O2SAT 98
[2023-02-10 20:45] LABS: Magnesium 2.1 mg/dL (1.6-2.3)
[2023-02-10 20:53] VITALS: PULSE 83
[2023-02-10] MEDS: LACTATED RINGERS 1,000 ML 999 ML IV CONT (20:53)
[2023-02-10] MEDS: LORazepam (*CRX) 0.5 MG TABLET PO (20:53)
[2023-02-10] MEDS: METOPROLOL TARTRATE 12.5 MG TABLET PO (20:53)
--- NOTE | 2023-02-10 21:11 | ED.ARRPALP ---
HPI - Arrhythmia/Palpitations General Chief Complaint: Arrhythmia/Palpitations Stated Complaint: palpitations Time Seen by Provider: 02/10/23 19:52 History of Present Illness HPI narrative: This is a 67-year-old female, with past history of hypothyroidism, who presents emergency department planing of lightheadedness and palpitations. The patient states she was painting throughout the day, and felt lightheaded. She denies loss of consciousness, chest pain or shortness of breath. She admits she has not had as much to drink as she usually does. Related Data Home Medications Medication Instructions Recorded Confirmed albuterol sulfate 90 mcg/actuation 90 mcg inhalation BID PRN Cough 08/20/21 11/15/22 aerosol inhaler levothyroxine 88 mcg tablet 88 mcg PO DAILY 08/20/21 11/15/22 (Euthyrox) pantoprazole 40 mg tablet,delayed 4 mg PO DAILY 08/20/21 11/15/22 release lorazepam 0.5 mg tablet (Ativan) 0.5 mg PO HS PRN Anxiety 08/23/21 11/15/22 bempedoic acid 180 mg-ezetimibe 10 1 tablet PO DAILY 11/15/22 11/15/22 mg tablet (Nexlizet) sumatriptan succinate 100 mg tablet 100 mg PO PRN PRN Migraine Headache 11/15/22 11/15/22 Allergies Allergy/AdvReac Type Severity Reaction Status Date / Time diclofenac [From Voltaren] AdvReac Other Verified 02/10/23 19:50 Review of Systems Review of Systems: CONSTITUTIONAL: Denies fever, chills, or sweats. CARDIOVASCULAR: Palpitations denies chest pain, or edema. RESPIRATORY: Denies cough or dyspnea. GASTROINTESTINAL: Denies abdominal pain, nausea, vomiting, or diarrhea. GENITOURINARY: Denies dysuria or hematuria. SKIN: Denies rash or itching. MUSCULOSKELETAL: Denies back pain, joint pain, or myalgia. NEUROLOGIC: Lightheadedness denies headache, numbness, or weakness. PSYCHIATRIC: Denies anxiety or depression. [facility] Past Medical History Medical History Hyperlipidemia Migraine headache Surgical History Surgical History Hx of cholecystectomy Social History Social History Smoking status: Never smoker Second hand tobacco smoke exposure: Yes (Father smoked) Alcohol intake: never Substance use: never Gender identity (if verbalized by the patient): Female Spiritual care concerns: No Exam Narrative: GENERAL: Well-developed, well-nourished, and in no acute distress. HEAD: Normocephalic, atraumatic. EYES: PERRLA and EOMI. ENT: Nares clear, no rhinorrhea or epistaxis. Mucous membranes moist. Oropharynx without tonsillar hypertrophy exudate or other lesions. CHEST: Clear to auscultation. No respiratory distress. No wheezes rales or rhonchi HEART: Regular rate and rhythm. No murmur heard. Normal peripheral pulses. ABDOMEN: Soft, nontender, nondistended, normal active bowel sounds. EXTREMITIES: Normal range of motion. No edema. SKIN: Warm, dry, no rash. NEURO: No focal deficits. Alert and oriented x3. PSYCH: Normal mood and affect. Course Course Emergency Course: 21:11 - CBC unremarkable. Chemistries demonstrate mild hyponatremia with a sodium of 131 and a glucose of 180. Magnesium 2.1 and calcium 8.7. Potassium 3.7. Chest x-ray unremarkable. EKG not concerning for ischemia or life-threatening arrhythmia. The patient states she feels improved after IV fluids. I suspect dehydration. Will discharge. Discussed return and emergency precautions including signs/symptoms of arrhythmia, ACS and respiratory distress. The patient voiced understanding and is comfortable with the plan. All questions answered to her satisfaction. Vital Signs Vital signs: Vital Signs Temperature 98.1 F 02/10/23 18:23 Pulse Rate 86 02/10/23 18:23 Respiratory Rate 18 02/10/23 18:23 Blood Pressure 141/73 H 02/10/23 18:23 Pulse Oximetry 97 02/10/23 18:23 Oxygen Delivery Room Air 02/10/23 18:23
--- NOTE | 2023-02-27 20:13 | PC.NURSE ---
LATE ENTRY This note is being entered to document information to the patient's record. The following information was omitted on [02/27/2023], by [Shukri JIM]. Lactated Ringers stopped at 2113.
== END 2023-02-10 21:53 | disposition home or self-care (01) ==
PROVIDERS: Emergency Medicine; Emergency Provider Preventive Medicine Aerospace Medicine; PCP Family Medicine
DX: E86.0 Dehydration (principal); R00.2 Palpitations; E03.9 Hypothyroidism, unspecified; E78.5 Hyperlipidemia, unspecified; Z90.49 Acquired absence of other specified parts of digestive tract; Z77.22 Contact with and (suspected) exposure to environmental tobacco smoke (acute) (chronic); Z79.82 Long term (current) use of aspirin; R94.31 Abnormal electrocardiogram [ECG] [EKG]
CPT/HCPCS: 36415; 71046; 80053; 83735; 84484; 85025; 85610; 85730; 93005; 96360; 99284; A9270; J7120